=== PATIENT | male | born 1980 | race African-American/Black ===

== ENCOUNTER 2016-05-30 20:27 | Emergency (ER) | payer OTHER ==
[~2016-05-30] VITALS: Ht 180.3 cm; Wt 78.0 kg
--- NOTE | 2016-05-30 20:44 | PD ---
HPI Chief Complaint: Medical Clearance Time Seen by Provider: 20:41 Travel History International Travel<30 days: No Contact w/Intl Traveler<30days: No History of Present Illness HPI Patient is a 35-year-old male who was brought into the emergency department by the [facility] Police [employer] for making odd statements in public. Patient is no physical complaints. 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 He states that the blurred movies, nothing is real. PFSH Past Medical History Arthritis: No Asthma: No Autoimmune Disease: No Blood Disorders: No Anxiety: Yes Depression: Yes (w/ suicidal ideation) Heart Rhythm Problems: Yes (tachycardia) Cancer: No Cardiovascular Problems: Yes (tachycardia) High Cholesterol: No Chest Pain: No Congestive Heart Failure: No COPD: No Cerebrovascular Accident: No Diabetes: No Diminished Hearing: No Endocrine: No GERD: No Glaucoma: No Genitourinary: No Headaches: No Hepatitis: No Hiatal Hernia: No Hypertension: No Immune Disorder: No Musculoskeletal: No Neurologic: No Psychiatric: Yes (psychosis) Respiratory: No Immunizations Current: No Migraines: No Myocardial Infarction: No Schizophrenia: Yes Seizures: No Sleep Apnea: No Ulcer: No Past Surgical History Abdominal Surgery: No AICD: No Appendectomy: No Cardiac Surgery: No Cholecystectomy: No Ear Surgery: Yes Endocrine Surgery: No Eye Surgery: Yes (left eye orbit) Genitourinary Surgery: No Gynecologic Surgery: No Neurologic Surgery: No Oral Surgery: Yes (facial plate) Pacemaker: No Thoracic Surgery: No Other Surgery: Yes (plate in face) Social History Alcohol Use: Yes (occassional 2 beers week. ) Tobacco Use: Yes (1 PPD. ) Substance Use: Yes (MARIJUANA, COCAINE) Allergies-Medications (Allergen,Severity, Reaction): Coded Allergies: Shellfish (Verified Allergy, Severe, EDEMA, HIVES, 05/30/16) Reported Meds & Prescriptions Reported Meds & Active Scripts Active No Active Prescriptions or Reported Medications Review of Systems ROS Limitations: Uncooperative Except as stated in HPI: all other systems reviewed are Neg Physical Exam Narrative GENERAL: Developed, well-nourished, alert gentleman. Resting comfortably in no acute distress. SKIN: Warm and dry. HEAD: Atraumatic. Normocephalic. EYES: Pupils equal and round. No scleral icterus. No injection or drainage. ENT: No nasal bleeding or discharge. Mucous membranes pink and moist. NECK: Trachea midline. No JVD. CARDIOVASCULAR: Regular rate and rhythm. No murmur appreciated. RESPIRATORY: No accessory muscle use. Clear to auscultation. Breath sounds equal bilaterally. GASTROINTESTINAL: Abdomen soft, non-tender, nondistended. Hepatic and splenic margins not palpable. MUSCULOSKELETAL: No obvious deformities. No clubbing. No cyanosis. No edema. NEUROLOGICAL: Awake and alert. No obvious cranial nerve deficits. Motor grossly within normal limits. Normal speech. PSYCHIATRIC: Appropriate mood and affect; insight and judgment impaired. Data Data Last Documented VS Vital Signs Date Time Temp Pulse Resp B/P Pulse Ox O2 Delivery O2 Flow Rate FiO2 05/30/16 21:25 97 15 05/30/16 21:21 98.5 135/78 98 Orders Complete Blood Count With Diff (05/30/16 20:37) Comprehensive Metabolic Panel (05/30/16 20:37) Psych Screen (05/30/16 20:37) Drug Screen, Random Urine (05/30/16 20:37) Alcohol (Ethanol) (05/30/16 20:37) Salicylates (Aspirin) (05/30/16 20:37) Tylenol (Acetaminophen) (05/30/16 20:37) Labs Laboratory Tests Test 05/30/16 20:45 White Blood Count 7.0 TH/MM3 Red Blood Count 4.58 MIL/MM3 Hemoglobin 13.5 GM/DL Hematocrit 40.4 % Mean Corpuscular Volume 88.3 FL Mean Corpuscular Hemoglobin 29.5 PG Mean Corpuscular Hemoglobin 33.4 % Concent Red Cell Distribution Width 15.4 % Platelet Count 247 TH/MM3 Mean Platelet Volume 8.7 FL Neutrophils (%) (Auto) 59.2 % Lymphocytes (%) (Auto) 30.9 % Monocytes (%) (Auto) 6.4 % Eosinophils (%) (Auto) 2.6 % Basophils (%) (Auto) 0.9 % Neutrophils # (Auto) 4.1 TH/MM3 Lymphocytes # (Auto) 2.2 TH/MM3 Monocytes # (Auto) 0.5 TH/MM3 Eosinophils # (Auto) 0.2 TH/MM3 Basophils # (Auto) 0.1 TH/MM3 CBC Comment DIFF FINAL Differential Comment Sodium Level 142 MEQ/L Potassium Level 3.5 MEQ/L Chloride Level 110 MEQ/L Carbon Dioxide Level 24.8 MEQ/L Anion Gap 7 MEQ/L Blood Urea Nitrogen 11 MG/DL Creatinine 1.09 MG/DL Estimat Glomerular Filtration 92 ML/MIN Rate Random Glucose 95 MG/DL Calcium Level 8.9 MG/DL Total Bilirubin 0.4 MG/DL Aspartate Amino Transf 28 U/L (AST/SGOT) Alanine Aminotransferase 35 U/L (ALT/SGPT) Alkaline Phosphatase 77 U/L Total Protein 7.3 GM/DL Albumin 3.7 GM/DL Salicylates Level 4.0 MG/DL Urine Opiates Screen NEG Acetaminophen Level LESS THAN 2.0 MCG/ML Urine Barbiturates Screen NEG Urine Amphetamines Screen NEG Urine Benzodiazepines Screen NEG Urine Cocaine Screen NEG Urine Cannabinoids Screen POS Ethyl Alcohol Level LESS THAN 3 MG/DL MDM Medical Decision Making Medical Screen Exam Complete: Yes Emergency Medical Condition: Yes Medical Record Reviewed: Yes Interpretation(s) Vital Signs Date Time Temp Pulse Resp B/P Pulse Ox O2 Delivery O2 Flow Rate FiO2 05/30/16 21:25 97 15 05/30/16 21:21 98.5 97 15 135/78 98 Laboratory Tests Test 05/30/16 20:45 White Blood Count 7.0 TH/MM3 Red Blood Count 4.58 MIL/MM3 Hemoglobin 13.5 GM/DL Hematocrit 40.4 % Mean Corpuscular Volume 88.3 FL Mean Corpuscular Hemoglobin 29.5 PG Mean Corpuscular Hemoglobin 33.4 % Concent Red Cell Distribution Width 15.4 % Platelet Count 247 TH/MM3 Mean Platelet Volume 8.7 FL Neutrophils (%) (Auto) 59.2 % Lymphocytes (%) (Auto) 30.9 % Monocytes (%) (Auto) 6.4 % Eosinophils (%) (Auto) 2.6 % Basophils (%) (Auto) 0.9 % Neutrophils # (Auto) 4.1 TH/MM3 Lymphocytes # (Auto) 2.2 TH/MM3 Monocytes # (Auto) 0.5 TH/MM3 Eosinophils # (Auto) 0.2 TH/MM3 Basophils # (Auto) 0.1 TH/MM3 CBC Comment DIFF FINAL Differential Comment Sodium Level 142 MEQ/L Potassium Level 3.5 MEQ/L Chloride Level 110 MEQ/L Carbon Dioxide Level 24.8 MEQ/L Anion Gap 7 MEQ/L Blood Urea Nitrogen 11 MG/DL Creatinine 1.09 MG/DL Estimat Glomerular Filtration 92 ML/MIN Rate Random Glucose 95 MG/DL Calcium Level 8.9 MG/DL Total Bilirubin 0.4 MG/DL Aspartate Amino Transf 28 U/L (AST/SGOT) Alanine Aminotransferase 35 U/L (ALT/SGPT) Alkaline Phosphatase 77 U/L Total Protein 7.3 GM/DL Albumin 3.7 GM/DL Salicylates Level 4.0 MG/DL Urine Opiates Screen NEG Acetaminophen Level LESS THAN 2.0 MCG/ML Urine Barbiturates Screen NEG Urine Amphetamines Screen NEG Urine Benzodiazepines Screen NEG Urine Cocaine Screen NEG Urine Cannabinoids Screen POS Ethyl Alcohol Level LESS THAN 3 MG/DL Differential Diagnosis Mood disorder versus substance abuse versus schizophrenia versus medication noncompliance versus other Narrative Course Patient's 35-year-old male brought in under [employer] act for making odd statements while in public. Patient has a history of drug abuse as well as schizophrenia. He is not answering questions appropriately, he is answering questions with questions, he is talking about random things. Labs ordered and pending. Labs reviewed and are unremarkable. Patient's urine drug screen was positive for marijuana. Patient is medically clear for psychiatric evaluation. Diagnosis Primary Impression: Medical clearance for psychiatric admission Additional Impression: Substance use disorder Scripts No Active Prescriptions or Reported Meds Condition: Stable María Dominguez May 30, 2016 20:44
[2016-05-30 21:02] LABS: AUTOMATED NEUTROPHIL # 4.1 TH/MM3 (1.8-7.7); BASOPHIL # 0.1 TH/MM3 (0-0.2); BASOPHIL % 0.9 % (0.0-2.0); EOSINOPHIL # 0.2 TH/MM3 (0-0.4); EOSINOPHIL % 2.6 % (0.0-4.0); HEMATOCRIT 40.4 % (39.0-51.0); HEMO FLAGS DIFF FINAL; LYMPH % 30.9 % (9.0-44.0); LYMPHOCYTE # 2.2 TH/MM3 (1.0-4.8); MEAN CELL VOLUME 88.3 FL (80.0-100.0); MEAN CORPUSCULAR HEMOGLOBIN 29.5 PG (27.0-34.0); MEAN CORPUSCULAR HGB CONC 33.4 % (32.0-36.0); MONO % 6.4 % (0.0-8.0); NEUT % 59.2 % (16.0-70.0); PLATELET COUNT 247 TH/MM3 (150-450); RED BLOOD COUNT 4.58 MIL/MM3 (4.50-5.90); RED CELL DISTRIBUTION WIDTH 15.4 % (11.6-17.2)
[2016-05-30 21:21] VITALS: BP 135/78; PULSE 97; RESP 15; TEMP 98.5; O2SAT 98
[2016-05-30 21:28] LABS: AMPHETAMINE, URINE NEG (NEG); BARBITURATES, URINE NEG (NEG); COCAINE, URINE NEG (NEG)
[2016-05-30 21:29] LABS: ANION GAP 7 MEQ/L (5-15)
[2016-05-30 21:31] LABS: ACETAMINOPHEN LESS THAN 2.0 MCG/ML (10.0-30.0); ALKALINE PHOSPHATASE 77 U/L (45-117); ALT (GPT) 35 U/L (12-78); AST (GOT) 28 U/L (15-37); BICARBONATE 24.8 MEQ/L (21.0-32.0); BLOOD UREA NITROGEN 11 MG/DL (7-18); CHLORIDE 110 MEQ/L (98-107); GLOMERULAR FILTRATION RATE 92 ML/MIN (>89); POTASSIUM 3.5 MEQ/L (3.5-5.1); SODIUM (NA) 142 MEQ/L (136-145); TOTAL BILIRUBIN ADULT 0.4 MG/DL (0.2-1.0)
[2016-05-30] MEDS ORDERED: LURA40 PO (23:36)
[2016-05-30] MEDS ORDERED: BENZ0.5T PO (23:41)
[2016-05-30] MEDS ORDERED: ZIPRASIDONE HCL 20 MG CAP PO ONE (23:45)
[2016-05-31 02:39] VITALS: RESP 20
== END 2016-05-31 03:59 ==
LOC: NEPA 20:27 → NEPJ 05-31 03:59
DX: F20.0 Paranoid schizophrenia (principal); R00.0 Tachycardia, unspecified; F17.210 Nicotine dependence, cigarettes, uncomplicated
CPT/HCPCS: 80053; 80307; 80320; 80329; 85025; 99284; G0480

== ENCOUNTER 2016-07-02 08:53 | Emergency (ER) | payer SELFPAY ==
[~2016-07-02] VITALS: Ht 182.9 cm; Wt 90.0 kg
[~2016-07-02 08:53] MED LIST: BENZ0.5T PO; LURA40 PO
[2016-07-02 08:55] VITALS: BP 133/83; PULSE 59; RESP 14; TEMP 98.2; O2SAT 99
[2016-07-02 10:16] LABS: AUTOMATED NEUTROPHIL # 2.5 TH/MM3 (1.8-7.7); BASOPHIL % 0.9 % (0.0-2.0); EOSINOPHIL # 0.2 TH/MM3 (0-0.4); HEMATOCRIT 42.1 % (39.0-51.0); HEMO FLAGS DIFF FINAL; LYMPHOCYTE # 1.6 TH/MM3 (1.0-4.8); MEAN CORPUSCULAR HEMOGLOBIN 29.5 PG (27.0-34.0); MEAN CORPUSCULAR HGB CONC 32.7 % (32.0-36.0); MONO % 6.9 % (0.0-8.0); NEUT % 53.2 % (16.0-70.0); PLATELET COUNT 218 TH/MM3 (150-450); RED BLOOD COUNT 4.68 MIL/MM3 (4.50-5.90); RED CELL DISTRIBUTION WIDTH 15.4 % (11.6-17.2); WHITE BLOOD COUNT 4.7 TH/MM3 (4.0-11.0)
[2016-07-02 10:38] LABS: AMPHETAMINE, URINE NEG (NEG); BARBITURATES, URINE NEG (NEG); COCAINE, URINE NEG (NEG)
[2016-07-02 10:49] LABS: ALT (GPT) 35 U/L (12-78); ANION GAP 5 MEQ/L (5-15); AST (GOT) 27 U/L (15-37); BICARBONATE 28.7 MEQ/L (21.0-32.0); BLOOD UREA NITROGEN 14 MG/DL (7-18); CHLORIDE 108 MEQ/L (98-107); GLOMERULAR FILTRATION RATE 130 ML/MIN (>89); SODIUM (NA) 142 MEQ/L (136-145)
[2016-07-02 10:51] LABS: ALKALINE PHOSPHATASE 78 U/L (45-117)
--- NOTE | 2016-07-02 13:07 | PD ---
HPI Chief Complaint: Psychiatric Symptoms Time Seen by Provider: 12:55 Travel History International Travel<30 days: No Contact w/Intl Traveler<30days: No Traveled to known affect area: No History of Present Illness HPI 35 year old male presents to the emergency department voluntarily for psychiatric evaluation. Patient is noncooperative and refuses to answer questions or allow me to perform a physical evaluation. The patient answers appropriately answers his name and the year. However, when asked where he is he states "somewhere". The patient denies any medical complaints at this time. When I asked him why he has come to the emergency department for psychiatric evaluation he states "because of people like you". He will not elaborate and refuses to talk to me further. According to the chart, the patient does have history of schizophrenia. He has been seen here multiple times for psychiatric evaluation. PFSH Past Medical History Arthritis: No Asthma: No Autoimmune Disease: No Blood Disorders: No Anxiety: Yes Depression: Yes (w/ suicidal ideation) Heart Rhythm Problems: Yes (tachycardia) Cancer: No Cardiovascular Problems: Yes (tachycardia) High Cholesterol: No Chest Pain: No Congestive Heart Failure: No COPD: No Cerebrovascular Accident: No Diabetes: No Diminished Hearing: No Endocrine: No GERD: No Glaucoma: No Genitourinary: No Headaches: No Hepatitis: No Hiatal Hernia: No Hypertension: No Immune Disorder: No Musculoskeletal: No Neurologic: No Psychiatric: Yes (psychosis) Respiratory: No Immunizations Current: No Migraines: No Myocardial Infarction: No Schizophrenia: Yes Seizures: No Sleep Apnea: No Ulcer: No Past Surgical History Abdominal Surgery: No AICD: No Appendectomy: No Cardiac Surgery: No Cholecystectomy: No Ear Surgery: Yes Endocrine Surgery: No Eye Surgery: Yes (left eye orbit) Genitourinary Surgery: No Gynecologic Surgery: No Neurologic Surgery: No Oral Surgery: Yes (facial plate) Pacemaker: No Thoracic Surgery: No Other Surgery: Yes (plate in face) Social History Alcohol Use: Yes (occassional 2 beers week. ) Tobacco Use: Yes (1 PPD. ) Substance Use: Yes (MARIJUANA, COCAINE) Allergies-Medications (Allergen,Severity, Reaction): Coded Allergies: Shellfish (Verified Allergy, Severe, EDEMA, HIVES, 05/30/16) Reported Meds & Prescriptions Reported Meds & Active Scripts Active Reported Benztropine (Benztropine Mesylate) 0.5 Mg Tab 0.5 Mg PO BID Latuda (Lurasidone) 40 Mg Tab 40 Mg PO DAILY Review of Systems Except as stated in HPI: all other systems reviewed are Neg Physical Exam Exam Limitations: Uncooperative, Psychotic Narrative GENERAL: Well-developed well-nourished male patient, afebrile. SKIN: Warm and dry. HEAD: Normocephalic. Atraumatic. EYES: No scleral icterus. No injection or drainage. RESPIRATORY: No accessory muscle use. MUSCULOSKELETAL: No cyanosis, or edema. PSYCHIATRIC: No delusional thought processes. No hallucinations. Patient is hostile and uncooperative. Data Data Last Documented VS Vital Signs Date Time Temp Pulse Resp B/P Pulse Ox O2 Delivery O2 Flow Rate FiO2 07/02/16 08:55 98.2 59 14 133/83 99 Orders Complete Blood Count With Diff (07/02/16 09:58) Comprehensive Metabolic Panel (07/02/16 09:58) Psych Screen (07/02/16 09:58) Drug Screen, Random Urine (07/02/16 09:58) Diet Regular Basic (07/02/16 Lunch) Labs Laboratory Tests Test 07/02/16 10:05 White Blood Count 4.7 TH/MM3 Red Blood Count 4.68 MIL/MM3 Hemoglobin 13.8 GM/DL Hematocrit 42.1 % Mean Corpuscular Volume 90.0 FL Mean Corpuscular Hemoglobin 29.5 PG Mean Corpuscular Hemoglobin 32.7 % Concent Red Cell Distribution Width 15.4 % Platelet Count 218 TH/MM3 Mean Platelet Volume 9.6 FL Neutrophils (%) (Auto) 53.2 % Lymphocytes (%) (Auto) 34.0 % Monocytes (%) (Auto) 6.9 % Eosinophils (%) (Auto) 5.0 % Basophils (%) (Auto) 0.9 % Neutrophils # (Auto) 2.5 TH/MM3 Lymphocytes # (Auto) 1.6 TH/MM3 Monocytes # (Auto) 0.3 TH/MM3 Eosinophils # (Auto) 0.2 TH/MM3 Basophils # (Auto) 0.0 TH/MM3 CBC Comment DIFF FINAL Differential Comment Sodium Level 142 MEQ/L Potassium Level 4.0 MEQ/L Chloride Level 108 MEQ/L Carbon Dioxide Level 28.7 MEQ/L Anion Gap 5 MEQ/L Blood Urea Nitrogen 14 MG/DL Creatinine 0.81 MG/DL Estimat Glomerular Filtration 130 ML/MIN Rate Random Glucose 85 MG/DL Calcium Level 9.6 MG/DL Total Bilirubin 1.0 MG/DL Aspartate Amino Transf 27 U/L (AST/SGOT) Alanine Aminotransferase 35 U/L (ALT/SGPT) Alkaline Phosphatase 78 U/L Total Protein 7.4 GM/DL Albumin 4.0 GM/DL Urine Opiates Screen NEG Urine Barbiturates Screen NEG Urine Amphetamines Screen NEG Urine Benzodiazepines Screen NEG Urine Cocaine Screen NEG Urine Cannabinoids Screen POS MDM Medical Decision Making Medical Screen Exam Complete: Yes Emergency Medical Condition: Yes Medical Record Reviewed: Yes Differential Diagnosis Schizophrenia versus bipolar disorder versus depression versus anxiety Narrative Course 35-year-old male who is well-known emergency department for schizophrenia presents to emergency Department voluntarily for psychiatric evaluation. He refuses to answer my questions. He denies any medical complaints. Physical exam is very limited due to uncooperativeness of the patient. Lab work was completed in triage. CBC is unremarkable. CMP shows no acute abnormality. Urine drug screen is positive for cannabinoids. Patient is medically cleared for psychiatric screening and disposition. Mental health screening discussed with the patient. Psychiatric screen ordered.minhn Diagnosis Primary Impression: Schizophrenia Qualified Code: F20.9 - Schizophrenia, unspecified type Additional Instructions: Patient is medically cleared for psychiatric screening and disposition. Condition: Stable Mely Hathaway Jul 02, 2016 13:07
[2016-07-03 02:12] VITALS: BP 154/73; PULSE 62; RESP 19; O2SAT 97
[2016-07-03 06:30] VITALS: RESP 18
--- NOTE | 2016-07-03 10:18 | PD ---
History of Present Illness Chief Complaint: Psychiatric Symptoms Time Seen by Provider: 10:10 Travel History International Travel<30 Days: No Contact w/Intl Traveler<30days: No Known affected area: No Legal Status Legal Status: Voluntary History of Present Illness: History of Present Illness HPI 35 year old male with history of substance abuse, substance induced mood disorder, schizophrenia versus schizoaffective disorder who presents to the emergency department voluntarily for psychiatric evaluation. Upon arrival to ED he is noncooperative and refuses to answer questions and did not allow an exam to be performed. He was uncooperative with all staff. The patient was brought to J pod for observation and was allowed to sleep. He did not present any behavioral concerns and slept all night. Patient seen in J pod. Record is reviewed. He has had multiple visits to [facility] with last visit on May 30, 2016 and atb that time he was transferred to [facility]. His current toxicology is positive for cannabinoids. Patient is initially not responding to my questions and keeps his blanket over his head. After several attempts at engaging him and after I advised him that if he did not cooperat e he would be discharged .He states " If you discharge me I will just kill myself". You are fake and everyone else is fake. I am tired of being in this fake world. " he did not answer any further questions. PFSH Past Medical History Arthritis: No Asthma: No Autoimmune Disease: No Blood Disorders: No Anxiety: Yes Depression: Yes (w/ suicidal ideation) Heart Rhythm Problems: Yes (tachycardia) Cancer: No Cardiovascular Problems: Yes (tachycardia) High Cholesterol: No Chest Pain: No Congestive Heart Failure: No COPD: No Cerebrovascular Accident: No Diabetes: No Diminished Hearing: No Endocrine: No GERD: No Glaucoma: No Genitourinary: No Headaches: No Hepatitis: No Hiatal Hernia: No Hypertension: No Immune Disorder: No Musculoskeletal: No Neurologic: No Psychiatric: Yes (psychosis) Respiratory: No Immunizations Current: No Migraines: No Myocardial Infarction: No Schizophrenia: Yes Seizures: No Sleep Apnea: No Ulcer: No Past Surgical History Abdominal Surgery: No AICD: No Appendectomy: No Cardiac Surgery: No Cholecystectomy: No Ear Surgery: Yes Endocrine Surgery: No Eye Surgery: Yes (left eye orbit) Genitourinary Surgery: No Gynecologic Surgery: No Neurologic Surgery: No Oral Surgery: Yes (facial plate) Pacemaker: No Thoracic Surgery: No Other Surgery: Yes (plate in face) Psychiatric History Psychiatric History Hx Psychiatric Treatment: MEDICAL RECORSDS GO Back to 2003 WHERE IT WAS NOTED THAT PATIENT BEGAN HIS VISITS FOR SUBSTANCE ABUSE AND PSYCHOSIS. PATIENT STATED THAT HE HAS HISTORY OF BEING DIAGNOSED WITH SCHIZOAFFECTIVE DISORDER. PATIENT HAS HAD SEVERAL VISITS TO [facility]. PATIENT HAS A LONG HISTORY WITH [facility], PT WAS DISCHARGED FROM [facility] ON, 05/30/16. History of Inpatient Treatment: Yes Guns or firearms in home: No Social History Possibly homeless Hx Alcohol Use: Yes (occassional 2 beers week. ) Hx Tobacco Use: Yes (1 PPD. ) Hx Substance Use: Yes Substance Use Type: Marijuana Other Substances Used: HX OF CRACK PER RECORDS Hx of Substance Use Treatment: No Allergies-Medications (Allergen,Severity, Reaction): Coded Allergies: Shellfish (Verified Allergy, Severe, EDEMA, HIVES, 05/30/16) Reported Meds & Prescriptions Reported Meds & Active Scripts Active No Active Prescriptions or Reported Medications Review of Systems ROS Limitations: Uncooperative Exam Alert: Yes [place]: Person Mood: Angry Affect: Other (unable to assess) Speech: Clear, Illogical Eye Contact: None Memory Intact: Comment (not able to assess) Hallucinations: Other (unable to assess) Delusions: Yes Delusion Type: Paranoid, Other (people are fake) Suicidal: Ideation Homicidal: Ideation (unable to assess) Insight/Judgement poor. poor [facility] Medical Decision Making Medical Record Reviewed: Yes Assessment/Plan Place on BA status as patient is uncooperative and reporting suicidal ideation. I am unable to determine his degree of mental impairment versus if this is a part of a manipulative attempt at obtaining alf and for this reason he is placed under a BA Will medicate with Haldol Patient is on Act wait list as no available beds on [facility]. Orders Diet Regular Basic (07/02/16 Lunch) Diet Regular Basic (07/02/16 Dinner) Diet Regular Basic (07/03/16 Breakfast) Results Vital Signs Date Time Temp Pulse Resp B/P Pulse Ox O2 Delivery O2 Flow Rate FiO2 07/03/16 06:30 18 07/03/16 02:12 62 19 154/73 97 Room Air Diagnosis Primary Impression: Schizophrenia Additional Impressions: Substance induced mood disorder Substance use disorder Additional Instructions: Patient is medically cleared for psychiatric screening and disposition. Prescriptions No Active Prescriptions or Reported Meds Disposition: 65 DISC TO PSYCH CARE FACILITY ([facility]) Condition: Stable Problem Qualifiers Primary Impression: Schizophrenia Qualified Code: F20.9 - Schizophrenia, unspecified type Ursula Santos Jul 03, 2016 10:18
[2016-07-03] MEDS ORDERED: diphenhydrAMINE HCL 50 MG CAP PO ONE (11:00)
[2016-07-03] MEDS ORDERED: HALOPERIDOL 5 MG TAB PO ONE (11:00)
== END 2016-07-03 11:06 ==
LOC: NEPJ 08:53
DX: F20.9 Schizophrenia, unspecified (principal)
CPT/HCPCS: 80053; 80307; 85025; 99284; Q0163

== ENCOUNTER 2016-07-19 16:14 | Emergency (ER) | payer OTHER ==
[~2016-07-19] VITALS: Ht 182.9 cm; Wt 90.0 kg
[2016-07-19 16:15] VITALS: BP 120/57; PULSE 117; RESP 20; RESP 22; TEMP 98.9; O2SAT 100
[2016-07-19] MEDS ORDERED: SODIUM CHLOR 0.9% 1000 ML INJ 1,000 ML IV ONE (16:30)
--- NOTE | 2016-07-19 16:36 | PD ---
HPI Chief Complaint: Medical Clearance Time Seen by Provider: 16:31 Travel History International Travel<30 days: No Contact w/Intl Traveler<30days: No History of Present Illness HPI Patient's 35-year-old male brought into the emergency department via EMS under Brandt act. Patient was initially seen in the car smoking an unknown substance and was thought to be having a seizure, EMS was called, patient fled the scene and crawled underneath the car. Patient admits to smoking K2 and marijuana. He reports a history of schizophrenia. He is combative and uncooperative initially. Patient was placed under Brandt act. Patient denies any suicidal or homicidal ideations at this time. PFSH Past Medical History Arthritis: No Asthma: No Autoimmune Disease: No Blood Disorders: No Anxiety: Yes Depression: Yes (w/ suicidal ideation) Heart Rhythm Problems: Yes (tachycardia) Cancer: No Cardiovascular Problems: Yes (tachycardia) High Cholesterol: No Chest Pain: No Congestive Heart Failure: No COPD: No Cerebrovascular Accident: No Diabetes: No Diminished Hearing: No Endocrine: No GERD: No Glaucoma: No Genitourinary: No Headaches: No Hepatitis: No Hiatal Hernia: No Hypertension: No Immune Disorder: No Musculoskeletal: No Neurologic: No Psychiatric: Yes (psychosis) Respiratory: No Immunizations Current: No Migraines: No Myocardial Infarction: No Schizophrenia: Yes Seizures: No Sleep Apnea: No Ulcer: No Past Surgical History Abdominal Surgery: No AICD: No Appendectomy: No Cardiac Surgery: No Cholecystectomy: No Ear Surgery: Yes Endocrine Surgery: No Eye Surgery: Yes (left eye orbit) Genitourinary Surgery: No Gynecologic Surgery: No Neurologic Surgery: No Oral Surgery: Yes (facial plate) Pacemaker: No Thoracic Surgery: No Other Surgery: Yes (plate in face) Social History Alcohol Use: Yes (occassional 2 beers week. ) Tobacco Use: Yes (1 PPD. ) Substance Use: Yes Allergies-Medications (Allergen,Severity, Reaction): Coded Allergies: Shellfish (Verified Allergy, Severe, EDEMA, HIVES, 07/19/16) Reported Meds & Prescriptions Reported Meds & Active Scripts Active No Active Prescriptions or Reported Medications Review of Systems ROS Limitations: Intoxication Except as stated in HPI: all other systems reviewed are Neg Cardiovascular: Positive: Tachycardia Skin: Positive Other (abrasion to left eye, left hand on knuckles.) Psychiatric: Positive: Mood Disorder, Substance Abuse Physical Exam Narrative GENERAL: Well-developed, well-nourished, alert gentleman. Resting comfortably in no acute distress SKIN: Focused skin assessment warm/dry. Abrasion to left eyelid, left knuckles. HEAD: Atraumatic. Normocephalic. EYES: Pupils equal and round. No scleral icterus. No injection or drainage. ENT: No nasal bleeding or discharge. Mucous membranes pink and moist. NECK: Trachea midline. No JVD. CARDIOVASCULAR: Tachycardic. No murmur appreciated. RESPIRATORY: No accessory muscle use. Clear to auscultation. Breath sounds equal bilaterally. GASTROINTESTINAL: Abdomen soft, non-tender, nondistended. Hepatic and splenic margins not palpable. MUSCULOSKELETAL: No obvious deformities. No clubbing. No cyanosis. No edema. NEUROLOGICAL: Awake and alert. No obvious cranial nerve deficits. Motor grossly within normal limits. Normal speech. PSYCHIATRIC: Appropriate mood and affect; insight and judgment impaired. Data Data Last Documented VS Vital Signs Date Time Temp Pulse Resp B/P Pulse Ox O2 Delivery O2 Flow Rate FiO2 07/19/16 16:15 98.9 117 22 120/57 100 07/19/16 16:15 Room Air Orders Complete Blood Count With Diff (07/19/16 16:29) Comprehensive Metabolic Panel (07/19/16 16:29) Urinalysis - C+S If Indicated (07/19/16 16:29) Electrocardiogram (07/19/16 16:29) Iv Access Insert/Monitor (07/19/16 16:29) Psych Screen (07/19/16 16:29) Drug Screen, Random Urine (07/19/16 16:29) Alcohol (Ethanol) (07/19/16 16:29) Salicylates (Aspirin) (07/19/16 16:29) Tylenol (Acetaminophen) (07/19/16 16:29) Diet Regular Basic (07/19/16 Dinner) Sodium Chlor 0.9% 1000 Ml Inj (Ns 1000 M (07/19/16 16:30) Labs Laboratory Tests Test 07/19/16 16:40 White Blood Count 6.3 TH/MM3 Red Blood Count 4.05 MIL/MM3 Hemoglobin 12.0 GM/DL Hematocrit 37.0 % Mean Corpuscular Volume 91.3 FL Mean Corpuscular Hemoglobin 29.5 PG Mean Corpuscular Hemoglobin 32.4 % Concent Red Cell Distribution Width 15.6 % Platelet Count 211 TH/MM3 Mean Platelet Volume 9.5 FL Neutrophils (%) (Auto) 63.9 % Lymphocytes (%) (Auto) 23.2 % Monocytes (%) (Auto) 8.2 % Eosinophils (%) (Auto) 3.9 % Basophils (%) (Auto) 0.8 % Neutrophils # (Auto) 4.0 TH/MM3 Lymphocytes # (Auto) 1.4 TH/MM3 Monocytes # (Auto) 0.5 TH/MM3 Eosinophils # (Auto) 0.2 TH/MM3 Basophils # (Auto) 0.1 TH/MM3 CBC Comment DIFF FINAL Differential Comment Sodium Level 142 MEQ/L Potassium Level 3.9 MEQ/L Chloride Level 111 MEQ/L Carbon Dioxide Level 23.3 MEQ/L Anion Gap 8 MEQ/L Blood Urea Nitrogen 16 MG/DL Creatinine 1.22 MG/DL Estimat Glomerular Filtration 81 ML/MIN Rate Random Glucose 120 MG/DL Calcium Level 8.3 MG/DL Total Bilirubin 0.3 MG/DL Aspartate Amino Transf 39 U/L (AST/SGOT) Alanine Aminotransferase 41 U/L (ALT/SGPT) Alkaline Phosphatase 62 U/L Total Protein 6.4 GM/DL Albumin 3.4 GM/DL Salicylates Level LESS THAN 1.7 MG/DL Acetaminophen Level LESS THAN 2.0 MCG/ML Ethyl Alcohol Level LESS THAN 3 MG/DL MDM Medical Decision Making Medical Screen Exam Complete: Yes Emergency Medical Condition: Yes Interpretation(s) Vital Signs Date Time Temp Pulse Resp B/P Pulse Ox O2 Delivery O2 Flow Rate FiO2 07/19/16 16:15 98.9 117 22 120/57 100 07/19/16 16:15 117 22 07/19/16 16:15 117 20 120/57 100 Room Air Differential Diagnosis Substance abuse versus mood disorder versus schizophrenia versus other Narrative Course Patient's 35-year-old male brought in under Brandt act after he was found smoking K2 in a car and allegedly tried to flee from the police and EMS, crawling underneath the car. They felt that he was a possible harm to himself and brought him in. Patient was tachycardic on arrival, at that point he was in 4 point restraints and had a net over his face. After police and EMS left, patient calmed down, he has been completely cooperative without any suicidal or homicidal ideations. He does admit to smoking K2, he reports compliance with his schizophrenia medications. He was taken out of restraints and has been compliant while in the emergency department. Patient is alert and oriented 4. Vital signs reassessed, heart rate is 95, blood pressure is 136/77. CBC is unremarkable Chemistry is unremarkable, salicylate level is less than 1.7, acetaminophen is less than 2.0, alcohol level is less than 3. Patient has had dinner, plenty of oral fluids. Patient is medically clear for psychiatric evaluation at this time. Diagnosis Primary Impression: Medical clearance for psychiatric admission Additional Impression: Substance use disorder Scripts No Active Prescriptions or Reported Meds Condition: Stable María Dominguez [facility] Jul 19, 2016 16:36
[2016-07-19 17:03] LABS: BASOPHIL # 0.1 TH/MM3 (0-0.2); BASOPHIL % 0.8 % (0.0-2.0); EOSINOPHIL # 0.2 TH/MM3 (0-0.4); EOSINOPHIL % 3.9 % (0.0-4.0); HEMO FLAGS DIFF FINAL; LYMPH % 23.2 % (9.0-44.0); LYMPHOCYTE # 1.4 TH/MM3 (1.0-4.8); MEAN CELL VOLUME 91.3 FL (80.0-100.0); MEAN CORPUSCULAR HEMOGLOBIN 29.5 PG (27.0-34.0); MEAN CORPUSCULAR HGB CONC 32.4 % (32.0-36.0); MONO % 8.2 % (0.0-8.0); NEUT % 63.9 % (16.0-70.0); PLATELET COUNT 211 TH/MM3 (150-450); RED BLOOD COUNT 4.05 MIL/MM3 (4.50-5.90); RED CELL DISTRIBUTION WIDTH 15.6 % (11.6-17.2); WHITE BLOOD COUNT 6.3 TH/MM3 (4.0-11.0)
[2016-07-19 17:54] LABS: ACETAMINOPHEN LESS THAN 2.0 MCG/ML (10.0-30.0); ALKALINE PHOSPHATASE 62 U/L (45-117); ALT (GPT) 41 U/L (12-78); ANION GAP 8 MEQ/L (5-15); AST (GOT) 39 U/L (15-37); BICARBONATE 23.3 MEQ/L (21.0-32.0); BLOOD UREA NITROGEN 16 MG/DL (7-18); CHLORIDE 111 MEQ/L (98-107); GLOMERULAR FILTRATION RATE 81 ML/MIN (>89); SODIUM (NA) 142 MEQ/L (136-145); TOTAL BILIRUBIN ADULT 0.3 MG/DL (0.2-1.0)
[2016-07-19 17:55] LABS: POTASSIUM 3.9 MEQ/L (3.5-5.1)
[2016-07-19 22:00] VITALS: RESP 19
[2016-07-20 01:46] LABS: AMPHETAMINE, URINE NEG (NEG); BARBITURATES, URINE NEG (NEG); COCAINE, URINE POS (NEG)
[2016-07-20 01:49] LABS: BLOOD, URINE NEG (NEG); COMMENT (UR) CULT NOT INDICATED; CULTURE IF INDICATED CULT NOT INDICATED; GLUCOSE,URINE NEG (NEG); GRANULAR CAST, URINE 4 /lpf; HYALINE CAST, URINE 41 /lpf (RARE); KETONE, URINE NEG (NEG); MUCUS URINE FEW /lpf (OCC); NITRITE,URINE NEG (NEG); SQUAMOUS EPITHELIAL CELL URINE 1 /hpf (0-5); URINE COLOR YELLOW (YELLW/STRAW)
[2016-07-20 02:19] VITALS: RESP 19
[2016-07-20 06:31] VITALS: RESP 16
--- NOTE | 2016-07-20 06:42 | HHI.PR ---
Subjective Remarks Patient brought in on BA by RAULITO. I tried to see him this morning, but he is uncooperative with interview. He answers questions with variations of "I'd rather not disclose that." He is requesting discharge from the ED this morning , and I explained to him that some cooperation with assessment is needed, but he remains uncooperative. Unable to perform psychiatric assessment for this reason at this time. Objective Exam Unable to obtain, patient uncooperative. Labs Test 07/19/16 07/20/16 16:40 01:24 White Blood Count 6.3 TH/MM3 Red Blood Count 4.05 MIL/MM3 Hemoglobin 12.0 GM/DL Hematocrit 37.0 % Mean Corpuscular Volume 91.3 FL Mean Corpuscular Hemoglobin 29.5 PG Mean Corpuscular Hemoglobin 32.4 % Concent Red Cell Distribution Width 15.6 % Platelet Count 211 TH/MM3 Mean Platelet Volume 9.5 FL Neutrophils (%) (Auto) 63.9 % Lymphocytes (%) (Auto) 23.2 % Monocytes (%) (Auto) 8.2 % Eosinophils (%) (Auto) 3.9 % Basophils (%) (Auto) 0.8 % Neutrophils # (Auto) 4.0 TH/MM3 Lymphocytes # (Auto) 1.4 TH/MM3 Monocytes # (Auto) 0.5 TH/MM3 Eosinophils # (Auto) 0.2 TH/MM3 Basophils # (Auto) 0.1 TH/MM3 CBC Comment DIFF FINAL Differential Comment Sodium Level 142 MEQ/L Potassium Level 3.9 MEQ/L Chloride Level 111 MEQ/L Carbon Dioxide Level 23.3 MEQ/L Anion Gap 8 MEQ/L Blood Urea Nitrogen 16 MG/DL Creatinine 1.22 MG/DL Estimat Glomerular Filtration 81 ML/MIN Rate Random Glucose 120 MG/DL Calcium Level 8.3 MG/DL Total Bilirubin 0.3 MG/DL Aspartate Amino Transf 39 U/L (AST/SGOT) Alanine Aminotransferase 41 U/L (ALT/SGPT) Alkaline Phosphatase 62 U/L Total Protein 6.4 GM/DL Albumin 3.4 GM/DL Salicylates Level LESS THAN 1.7 MG/DL Acetaminophen Level LESS THAN 2.0 MCG/ML Ethyl Alcohol Level LESS THAN 3 MG/DL Urine Color YELLOW Urine Turbidity HAZY Urine pH 6.0 Urine Specific [place] 1.024 Urine Protein TRACE mg/dL Urine Glucose (UA) NEG mg/dL Urine Ketones NEG mg/dL Urine Occult Blood NEG Urine Nitrite NEG Urine Bilirubin NEG Urine Urobilinogen LESS THAN 2.0 MG/DL Urine Leukocyte Esterase TRACE Urine RBC 1 /hpf Urine WBC 7 /hpf Urine Squamous Epithelial 1 /hpf Cells Urine Hyaline Casts 41 /lpf Urine Granular Casts 4 /lpf Urine Mucus FEW /lpf Microscopic Urinalysis Comment CULT NOT INDICATED Urine Opiates Screen NEG Urine Barbiturates Screen NEG Urine Amphetamines Screen NEG Urine Benzodiazepines Screen NEG Urine Cocaine Screen POS Urine Cannabinoids Screen POS Vitals/IOs Vital Signs Date Time Temp Pulse Resp B/P Pulse Ox O2 Delivery O2 Flow Rate FiO2 07/20/16 06:31 16 07/19/16 16:15 98.9 117 120/57 100 07/19/16 16:15 Room Air Assessment & Plan Problem List: (1) Encounter for psychiatric assessment ICD Code: Z76.89 Assessment & Plan Unable to complete psychiatric assessment at this time. Patient uncooperative. Brandt Act remains in place for now. Brett Ramirez MD Jul 20, 2016 06:42
--- NOTE | 2016-07-20 10:27 | PD ---
History of Present Illness Chief Complaint: Medical Clearance Time Seen by Provider: 09:30 Travel History International Travel<30 Days: No Contact w/Intl Traveler<30days: No Known affected area: No Legal Status Legal Status: Brandt Act Brandt Act Signed By: Alicia Real History of Present Illness: Patient reevaluated by this physician. He is now talking and cooperative. He admits to smoking K2 yesterday. At this time he is no longer intoxicated and he denies any suicidal or homicidal ideation, plan or intent. He also denies any psychotic thinking. His cognition is intact and appears to be baseline. He states he is homeless at this time but he does have a place to stay at the [employer] and that he would like to return there. He is verbally nataly for safety and he is being calm and pleasant. He does not meet criteria for Brandt act or inpatient psychiatric hospitalization. [facility] Past Medical History Medical History: Denies Significant Hx Arthritis: No Asthma: No Autoimmune Disease: No Blood Disorders: No Anxiety: Yes Depression: Yes (w/ suicidal ideation) Heart Rhythm Problems: Yes (tachycardia) Cancer: No Cardiovascular Problems: Yes (tachycardia) High Cholesterol: No Chest Pain: No Congestive Heart Failure: No COPD: No Cerebrovascular Accident: No Diabetes: No Diminished Hearing: No Endocrine: No GERD: No Glaucoma: No Genitourinary: No Headaches: No Hepatitis: No Hiatal Hernia: No Hypertension: No Immune Disorder: No Musculoskeletal: No Neurologic: No Psychiatric: Yes (psychosis) Respiratory: No Immunizations Current: No Migraines: No Myocardial Infarction: No Schizophrenia: Yes Seizures: No Sleep Apnea: No Ulcer: No Tetanus Vaccination: Unknown Influenza Vaccination: No Past Surgical History Abdominal Surgery: No AICD: No Appendectomy: No Cardiac Surgery: No Cholecystectomy: No Ear Surgery: Yes Endocrine Surgery: No Eye Surgery: Yes (left eye orbit) Genitourinary Surgery: No Gynecologic Surgery: No Neurologic Surgery: No Oral Surgery: Yes (facial plate) Pacemaker: No Thoracic Surgery: No Other Surgery: Yes (plate in face) Psychiatric History Psychiatric History Hx Psychiatric Treatment: MEDICAL RECORSDS GO Back to 2003 WHERE IT WAS NOTED THAT PATIENT BEGAN HIS VISITS FOR SUBSTANCE ABUSE AND PSYCHOSIS. PATIENT STATED THAT HE HAS HISTORY OF BEING DIAGNOSED WITH SCHIZOAFFECTIVE DISORDER. PATIENT HAS HAD SEVERAL VISITS TO [facility]. PATIENT HAS A LONG HISTORY WITH [facility], PT WAS DISCHARGED FROM [facility] ON, 05/30/16. History of Inpatient Treatment: Yes Social History Hx Alcohol Use: Yes (occassional 2 beers week. ) Hx Tobacco Use: Yes (1 PPD) Hx Substance Use: Yes (COCAINE, MARIJUANA, K2, DENIES IVDA ) Substance Use Type: Marijuana Other Substances Used: HX OF CRACK PER RECORDS Hx of Substance Use Treatment: No Allergies-Medications (Allergen,Severity, Reaction): Coded Allergies: Shellfish (Verified Allergy, Severe, EDEMA, HIVES, 07/19/16) Reported Meds & Prescriptions Reported Meds & Active Scripts Active No Active Prescriptions or Reported Medications Review of Systems ROS Limitations: Clinical Condition Except as stated in HPI: all other systems reviewed are Neg Exam Exam Limitations: Clinical Condition Alert: Yes [place]: Person, Place, Date, Situation Mood: Calm Affect: Appropriate Speech: Clear, Logical Eye Contact: Normal Memory Intact: Immediate, Recent, Remote Insight/Judgement Adequate except for drug use. MDM Medical Decision Making Medical Record Reviewed: Yes Assessment/Plan This physician has reviewed the past treatment of the patient at [facility] with diagnoses of drug abuse and psychosis and schizoaffective disorder. At this time there is no evidence of psychosis or schizoaffective disorder but obvious evidence of drug abuse. The patient no longer meets criteria for [facility]. It is therefore being lifted and the patient is being discharged per his request. He was referred back to [facility] for drug abuse treatment. Orders Complete Blood Count With Diff (07/19/16 16:29) Comprehensive Metabolic Panel (07/19/16 16:29) Urinalysis - C+S If Indicated (07/19/16 16:29) Iv Access Insert/Monitor (07/19/16 16:29) Psych Screen (07/19/16 16:29) Drug Screen, Random Urine (07/19/16 16:29) Alcohol (Ethanol) (07/19/16 16:29) Salicylates (Aspirin) (07/19/16 16:29) Tylenol (Acetaminophen) (07/19/16 16:29) Diet Regular Basic (07/19/16 Dinner) Sodium Chlor 0.9% 1000 Ml Inj (Ns 1000 M (07/19/16 16:30) Diet Regular Basic (07/20/16 Breakfast) Diet Regular Basic (07/20/16 Lunch) Results Vital Signs Date Time Temp Pulse Resp B/P Pulse Ox O2 Delivery O2 Flow Rate FiO2 07/20/16 06:31 16 07/20/16 02:19 19 07/19/16 22:00 19 07/19/16 16:15 98.9 117 22 120/57 100 07/19/16 16:15 117 22 07/19/16 16:15 117 20 120/57 100 Room Air Laboratory Tests Test 07/19/16 07/20/16 16:40 01:24 White Blood Count 6.3 Red Blood Count 4.05 Hemoglobin 12.0 Hematocrit 37.0 Mean Corpuscular Volume 91.3 Mean Corpuscular Hemoglobin 29.5 Mean Corpuscular Hemoglobin 32.4 Concent Red Cell Distribution Width 15.6 Platelet Count 211 Mean Platelet Volume 9.5 Neutrophils (%) (Auto) 63.9 Lymphocytes (%) (Auto) 23.2 Monocytes (%) (Auto) 8.2 Eosinophils (%) (Auto) 3.9 Basophils (%) (Auto) 0.8 Neutrophils # (Auto) 4.0 Lymphocytes # (Auto) 1.4 Monocytes # (Auto) 0.5 Eosinophils # (Auto) 0.2 Basophils # (Auto) 0.1 CBC Comment DIFF FINAL Differential Comment Sodium Level 142 Potassium Level 3.9 Chloride Level 111 Carbon Dioxide Level 23.3 Anion Gap 8 Blood Urea Nitrogen 16 Creatinine 1.22 Estimat Glomerular Filtration 81 Rate Random Glucose 120 Calcium Level 8.3 Total Bilirubin 0.3 Aspartate Amino Transf 39 (AST/SGOT) Alanine Aminotransferase 41 (ALT/SGPT) Alkaline Phosphatase 62 Total Protein 6.4 Albumin 3.4 Salicylates Level LESS THAN 1.7 Acetaminophen Level LESS THAN 2.0 Ethyl Alcohol Level LESS THAN 3 Urine Color YELLOW Urine Turbidity HAZY Urine pH 6.0 Urine Specific [place] 1.024 Urine Protein TRACE Urine Glucose (UA) NEG Urine Ketones NEG Urine Occult Blood NEG Urine Nitrite NEG Urine Bilirubin NEG Urine Urobilinogen LESS THAN 2.0 Urine Leukocyte Esterase TRACE Urine RBC 1 Urine WBC 7 Urine Squamous Epithelial 1 Cells Urine Hyaline Casts 41 Urine Granular Casts 4 Urine Mucus FEW Microscopic Urinalysis Comment CULT NOT INDICATED Urine Opiates Screen NEG Urine Barbiturates Screen NEG Urine Amphetamines Screen NEG Urine Benzodiazepines Screen NEG Urine Cocaine Screen POS Urine Cannabinoids Screen POS Diagnosis Primary Impression: Adjustment disorder with mixed disturbance of emotions and conduct Departure Forms: Tests/Procedures Patient Instructions: General Instructions, Mood Disorders (ED) Prescriptions No Active Prescriptions or Reported Meds Disposition: 01 DISCHARGE HOME Condition: Stable Romeo Alexander MD Jul 20, 2016 10:27
== END 2016-07-20 11:03 | disposition home or self-care (01) ==
LOC: NEPE 16:14 → NEPJ 07-20 11:03
DX: F43.25 Adjustment disorder with mixed disturbance of emotions and conduct (principal); F17.200 Nicotine dependence, unspecified, uncomplicated; R00.0 Tachycardia, unspecified; F25.9 Schizoaffective disorder, unspecified; F41.9 Anxiety disorder, unspecified; F32.9 Major depressive disorder, single episode, unspecified; F14.90 Cocaine use, unspecified, uncomplicated; F12.90 Cannabis use, unspecified, uncomplicated; Z59.0 Homelessness
CPT/HCPCS: 80053; 80307; 81001; 85025; 96360; 99285; J7030

== ENCOUNTER 2016-07-22 02:36 | Emergency (ER) | payer SELFPAY ==
[~2016-07-22] VITALS: Ht 182.9 cm; Wt 80.0 kg
[2016-07-22 02:39] VITALS: BP 127/91; PULSE 74; RESP 20; TEMP 98.1; O2SAT 98
[2016-07-22] MEDS ORDERED: diphenhydrAMINE HCL 50 MG/ML VIAL IV PUSH ONE (02:45)
[2016-07-22] MEDS ORDERED: HALOPERIDOL LACTATE 5 MG/ML AMP IM ONE (02:45)
[2016-07-22] MEDS ORDERED: LORazepam 2 MG/ML VIAL IV PUSH ONE (02:45)
--- NOTE | 2016-07-22 02:56 | PD ---
HPI Chief Complaint: Psychiatric Symptoms Time Seen by Provider: 02:44 Travel History International Travel<30 days: No Contact w/Intl Traveler<30days: No Traveled to known affect area: No History of Present Illness HPI The patient is a 35 year old male who presents to the [facility] emergency department with a history of being brought in as a Brandt act by the police due to reports of planning to kill himself because he is unable to feed himself. According to the police, the patient had been walking up to multiple people asking for money for food. When they would not given money he with threatened to kill himself by jumping off of a bridge. The patient has a known history of psychiatric disorder area he has not been on his medication recently. The patient also has a known history of polysubstance abuse. He reports that he has been in "smoking dope today". The patient reports to me that he believes that the world is fake and that police officers robots. The patient denies having any other acute medical complaints although he refuses to answer any specifics regarding his review of systems. [facility] Past Medical History Narrative Medical The patient's past medical history is significant for schizophrenia, polysubstance abuse. Arthritis: No Asthma: No Autoimmune Disease: No Blood Disorders: No Anxiety: Yes Depression: Yes (w/ suicidal ideation) Heart Rhythm Problems: Yes (tachycardia) Cancer: No Cardiovascular Problems: Yes (tachycardia) High Cholesterol: No Chest Pain: No Congestive Heart Failure: No COPD: No Cerebrovascular Accident: No Diabetes: No Diminished Hearing: No Endocrine: No GERD: No Glaucoma: No Genitourinary: No Headaches: No Hepatitis: No Hiatal Hernia: No Hypertension: No Immune Disorder: No Musculoskeletal: No Neurologic: No Psychiatric: Yes (psychosis) Respiratory: No Immunizations Current: No Migraines: No Myocardial Infarction: No Schizophrenia: Yes Seizures: No Sleep Apnea: No Ulcer: No Tetanus Vaccination: Unknown Influenza Vaccination: No Past Surgical History Narrative Surgical The patient's past surgical history is significant for maxillofacial surgery related to a fracture. Abdominal Surgery: No AICD: No Appendectomy: No Cardiac Surgery: No Cholecystectomy: No Ear Surgery: Yes Endocrine Surgery: No Eye Surgery: Yes (left eye orbit) Genitourinary Surgery: No Gynecologic Surgery: No Neurologic Surgery: No Oral Surgery: Yes (facial plate) Pacemaker: No Thoracic Surgery: No Other Surgery: Yes (plate in face) Social History Alcohol Use: Yes (occassional 2 beers week. ) Tobacco Use: Yes (1 PPD) Substance Use: Yes (COCAINE, MARIJUANA, K2, DENIES IVDA ) Allergies-Medications (Allergen,Severity, Reaction): Coded Allergies: Shellfish (Verified Allergy, Severe, EDEMA, HIVES, 07/22/16) Reported Meds & Prescriptions Reported Meds & Active Scripts Active No Active Prescriptions or Reported Medications Review of Systems ROS Limitations: Refused Musculoskeletal: No: Pain Psychiatric: Positive: Suicidal Ideations, Disorder of Thought, Mood Disorder, Substance Abuse Physical Exam Narrative General: The patient is a well-developed well-nourished male who arrives in handcuffs and in no acute distress. Head and Neck exam: Head is normocephalic atraumatic. Eyes: EOMI, pupils are equal round and reactive to light. Nose: Midline septum with pink mucous membranes Mouth: Dentition unremarkable. Moist mucus membranes. Posterior oropharynx is not erythematous. No tonsillar hypertrophy. Uvula midline. Airway patent. Neck: No palpable lymphadenopathy. No nuchal rigidity. No thyromegaly. Cardiovascular: Regular rate and rhythm without murmurs, gallops, or rubs. No pulse deficit to the extremities and simultaneous auscultation and palpation of his radial artery. Lungs: Clear to auscultation bilaterally. No wheezes, rhonchi, or rales. Abdomen: Soft, without tenderness to palpation in all 4 quadrants of the abdomen. No guarding, rebound, or rigidity. Extremities: No clubbing, cyanosis, or edema. No extremity pain or deformity noted. Neurologic Exam: Grossly nonfocal. Skin Exam: No rash noted. Intact skin that is warm and dry. Data Data Last Documented VS Vital Signs Date Time Temp Pulse Resp B/P Pulse Ox O2 Delivery O2 Flow Rate FiO2 07/22/16 02:39 98.1 74 20 127/91 98 Orders Haloperidol Inj (Haldol Inj) (07/22/16 02:45) Lorazepam Inj (Ativan Inj) (07/22/16 02:45) Diphenhydramine Inj (Benadryl Inj) (07/22/16 02:45) Complete Blood Count With Diff (07/22/16 02:46) Comprehensive Metabolic Panel (07/22/16 02:46) Psych Screen (07/22/16 02:46) Drug Screen, Random Urine (07/22/16 02:46) Alcohol (Ethanol) (07/22/16 02:46) Salicylates (Aspirin) (07/22/16 02:46) Tylenol (Acetaminophen) (07/22/16 02:46) Labs Laboratory Tests Test 07/22/16 02:55 White Blood Count 7.1 TH/MM3 Red Blood Count 4.05 MIL/MM3 Hemoglobin 12.1 GM/DL Hematocrit 35.9 % Mean Corpuscular Volume 88.7 FL Mean Corpuscular Hemoglobin 29.9 PG Mean Corpuscular Hemoglobin 33.7 % Concent Red Cell Distribution Width 15.5 % Platelet Count 229 TH/MM3 Mean Platelet Volume 9.5 FL Neutrophils (%) (Auto) 65.8 % Lymphocytes (%) (Auto) 25.9 % Monocytes (%) (Auto) 5.9 % Eosinophils (%) (Auto) 1.3 % Basophils (%) (Auto) 1.1 % Neutrophils # (Auto) 4.7 TH/MM3 Lymphocytes # (Auto) 1.9 TH/MM3 Monocytes # (Auto) 0.4 TH/MM3 Eosinophils # (Auto) 0.1 TH/MM3 Basophils # (Auto) 0.1 TH/MM3 CBC Comment DIFF FINAL Differential Comment Sodium Level 143 MEQ/L Potassium Level 3.8 MEQ/L Chloride Level 110 MEQ/L Carbon Dioxide Level 24.6 MEQ/L Anion Gap 8 MEQ/L Blood Urea Nitrogen 11 MG/DL Creatinine 0.91 MG/DL Estimat Glomerular Filtration 114 ML/MIN Rate Random Glucose 101 MG/DL Calcium Level 9.1 MG/DL Total Bilirubin 0.2 MG/DL Aspartate Amino Transf 33 U/L (AST/SGOT) Alanine Aminotransferase 46 U/L (ALT/SGPT) Alkaline Phosphatase 69 U/L Total Protein 7.1 GM/DL Albumin 3.8 GM/DL Salicylates Level LESS THAN 1.7 MG/DL Acetaminophen Level LESS THAN 2.0 MCG/ML Ethyl Alcohol Level LESS THAN 3 MG/DL MDM Medical Decision Making Medical Screen Exam Complete: Yes Emergency Medical Condition: Yes Medical Record Reviewed: Yes Differential Diagnosis Acute psychosis related to exacerbation of schizophrenia off medication, versus substance induced mood disorder Narrative Course During the course of the patients emergency department visit, the patients history, examination, and differential diagnosis were reviewed with the patient. The patient had IV access obtained and blood work sent for analysis. The patient was on a disposal man with oximetry and blood pressure monitoring. The patient's Brandt act was reviewed. A psychiatric screen was ordered. The patient was provided Haldol, Benadryl, Ativan for sedation due to continued agitation. The patients laboratory studies were reviewed and remarkable for a white count of 7.1, hemoglobin 12.1, platelets 229 with a normal differential, CMP is remarkable for chloride of 110, salicylate less than 1.7 acetaminophen less than 2, alcohol less than 3. The patient has been medically clear for evaluation by the psychiatric screener under a Brandt act. Diagnosis Primary Impression: Acute psychosis Additional Impression: Suicidal ideations Scripts No Active Prescriptions or Reported Meds Haylee Gordon MD Jul 22, 2016 02:56
[2016-07-22 03:24] LABS: AUTOMATED NEUTROPHIL # 4.7 TH/MM3 (1.8-7.7); BASOPHIL # 0.1 TH/MM3 (0-0.2); BASOPHIL % 1.1 % (0.0-2.0); EOSINOPHIL # 0.1 TH/MM3 (0-0.4); EOSINOPHIL % 1.3 % (0.0-4.0); HEMATOCRIT 35.9 % (39.0-51.0); HEMO FLAGS DIFF FINAL; LYMPH % 25.9 % (9.0-44.0); LYMPHOCYTE # 1.9 TH/MM3 (1.0-4.8); MEAN CELL VOLUME 88.7 FL (80.0-100.0); MEAN CORPUSCULAR HEMOGLOBIN 29.9 PG (27.0-34.0); MEAN CORPUSCULAR HGB CONC 33.7 % (32.0-36.0); MONO % 5.9 % (0.0-8.0); NEUT % 65.8 % (16.0-70.0); PLATELET COUNT 229 TH/MM3 (150-450); RED BLOOD COUNT 4.05 MIL/MM3 (4.50-5.90); RED CELL DISTRIBUTION WIDTH 15.5 % (11.6-17.2); WHITE BLOOD COUNT 7.1 TH/MM3 (4.0-11.0)
[2016-07-22 03:36] LABS: ANION GAP 8 MEQ/L (5-15); AST (GOT) 33 U/L (15-37); BICARBONATE 24.6 MEQ/L (21.0-32.0); BLOOD UREA NITROGEN 11 MG/DL (7-18); CHLORIDE 110 MEQ/L (98-107); GLOMERULAR FILTRATION RATE 114 ML/MIN (>89); POTASSIUM 3.8 MEQ/L (3.5-5.1); SODIUM (NA) 143 MEQ/L (136-145)
[2016-07-22 03:39] LABS: ACETAMINOPHEN LESS THAN 2.0 MCG/ML (10.0-30.0); ALKALINE PHOSPHATASE 69 U/L (45-117); ALT (GPT) 46 U/L (12-78); TOTAL BILIRUBIN ADULT 0.2 MG/DL (0.2-1.0)
[2016-07-22 08:45] VITALS: BP 115/73; PULSE 76; RESP 20; TEMP 98.6; O2SAT 98
[2016-07-22] MEDS ORDERED: CELE20TA PO (10:30)
--- NOTE | 2016-07-22 10:35 | PD ---
History of Present Illness Chief Complaint: Psychiatric Symptoms Time Seen by Provider: 10:00 Travel History International Travel<30 Days: No Contact w/Intl Traveler<30days: No Known affected area: No Legal Status Legal Status: Brandt Act Brandt Act Signed By: Alicia Real History of Present Illness: This is a 35-year-old male, well known to this physician and the staff at the emergency department, who was Brandt acted for making suicidal threats. The patient has been variously diagnosed with substance abuse disorders, schizophrenia, schizoaffective disorder, etc. On this occasion he reportedly was panhandling for money in order to obtain food and when he could not obtain enough food he told police he was suicidal. However, upon interview the patient admits to buying and smoking marijuana. Patient has been repeatedly seen in this emergency department after intoxication with various substances. He also wants to eat breakfast this morning and received a prescription for Celexa. He is not currently suicidal, homicidal or demonstrating psychosis. This physician feels it is counter therapeutic to give into his manipulations and he will be referred back to [facility] for outpatient treatment. PFSH Past Medical History Arthritis: No Asthma: No Autoimmune Disease: No Blood Disorders: No Anxiety: Yes Depression: Yes (w/ suicidal ideation) Heart Rhythm Problems: Yes (tachycardia) Cancer: No Cardiovascular Problems: Yes (tachycardia) High Cholesterol: No Chest Pain: No Congestive Heart Failure: No COPD: No Cerebrovascular Accident: No Diabetes: No Diminished Hearing: No Endocrine: No GERD: No Glaucoma: No Genitourinary: No Headaches: No Hepatitis: No Hiatal Hernia: No Hypertension: No Immune Disorder: No Musculoskeletal: No Neurologic: No Psychiatric: Yes (psychosis) Respiratory: No Immunizations Current: No Migraines: No Myocardial Infarction: No Schizophrenia: Yes Seizures: No Sleep Apnea: No Ulcer: No Tetanus Vaccination: Unknown Influenza Vaccination: No Past Surgical History Abdominal Surgery: No AICD: No Appendectomy: No Cardiac Surgery: No Cholecystectomy: No Ear Surgery: Yes Endocrine Surgery: No Eye Surgery: Yes (left eye orbit) Genitourinary Surgery: No Gynecologic Surgery: No Neurologic Surgery: No Oral Surgery: Yes (facial plate) Pacemaker: No Thoracic Surgery: No Other Surgery: Yes (plate in face) Psychiatric History Psychiatric History Hx Psychiatric Treatment: MEDICAL RECORSDS GO Back to 2003 WHERE IT WAS NOTED THAT PATIENT BEGAN HIS VISITS FOR SUBSTANCE ABUSE AND PSYCHOSIS. PATIENT STATED THAT HE HAS HISTORY OF BEING DIAGNOSED WITH SCHIZOAFFECTIVE DISORDER. PATIENT HAS HAD SEVERAL VISITS TO [facility] ED. PATIENT HAS A LONG HISTORY WITH [facility], PT WAS DISCHARGED FROM [facility] ON, 05/30/16. History of Inpatient Treatment: Yes Guns or firearms in home: No Social History Hx Alcohol Use: Yes (occassional 2 beers week. ) Hx Tobacco Use: Yes (1 PPD) Hx Substance Use: Yes (COCAINE, MARIJUANA, K2, DENIES IVDA ) Substance Use Type: Marijuana Other Substances Used: HX OF CRACK PER RECORDS Hx of Substance Use Treatment: No Allergies-Medications (Allergen,Severity, Reaction): Coded Allergies: Shellfish (Verified Allergy, Severe, EDEMA, HIVES, 07/22/16) Reported Meds & Prescriptions Reported Meds & Active Scripts Active Celexa (Citalopram Hydrobromide) 20 Mg Tab 20 Mg PO DAILY Review of Systems ROS Limitations: Clinical Condition Exam Exam Limitations: Clinical Condition Alert: Yes [place]: Person, Place, Date, Situation Mood: Calm Affect: Appropriate Speech: Clear Eye Contact: Normal Memory Intact: Immediate, Recent, Remote Insight/Judgement Adequate except for drug use. [facility] Medical Decision Making Medical Record Reviewed: Yes Assessment/Plan As stated previously, this physician feels the patient does not meet Brandt act criteria and he does not meet criteria for inpatient psychiatric hospitalization. He continues to use drugs and then manipulate the system for care and feeding. This physician believes it is counter therapeutic to admit the patient as a result of this manipulative behavior. However, a prescription for Celexa was provided to the patient per his request. The patient can follow up with [facility] where he is supposed to be treated. Orders Haloperidol Inj (Haldol Inj) (07/22/16 02:45) Lorazepam Inj (Ativan Inj) (07/22/16 02:45) Diphenhydramine Inj (Benadryl Inj) (07/22/16 02:45) Complete Blood Count With Diff (07/22/16 02:46) Comprehensive Metabolic Panel (07/22/16 02:46) Psych Screen (07/22/16 02:46) Drug Screen, Random Urine (07/22/16 02:46) Alcohol (Ethanol) (07/22/16 02:46) Salicylates (Aspirin) (07/22/16 02:46) Tylenol (Acetaminophen) (07/22/16 02:46) Diet Regular Basic (07/22/16 Breakfast) Results Vital Signs Date Time Temp Pulse Resp B/P Pulse Ox O2 Delivery O2 Flow Rate FiO2 07/22/16 08:45 98.6 76 20 115/73 98 Room Air 07/22/16 02:39 98.1 74 20 127/91 98 Laboratory Tests Test 07/22/16 02:55 White Blood Count 7.1 Red Blood Count 4.05 Hemoglobin 12.1 Hematocrit 35.9 Mean Corpuscular Volume 88.7 Mean Corpuscular Hemoglobin 29.9 Mean Corpuscular Hemoglobin 33.7 Concent Red Cell Distribution Width 15.5 Platelet Count 229 Mean Platelet Volume 9.5 Neutrophils (%) (Auto) 65.8 Lymphocytes (%) (Auto) 25.9 Monocytes (%) (Auto) 5.9 Eosinophils (%) (Auto) 1.3 Basophils (%) (Auto) 1.1 Neutrophils # (Auto) 4.7 Lymphocytes # (Auto) 1.9 Monocytes # (Auto) 0.4 Eosinophils # (Auto) 0.1 Basophils # (Auto) 0.1 CBC Comment DIFF FINAL Differential Comment Sodium Level 143 Potassium Level 3.8 Chloride Level 110 Carbon Dioxide Level 24.6 Anion Gap 8 Blood Urea Nitrogen 11 Creatinine 0.91 Estimat Glomerular Filtration 114 Rate Random Glucose 101 Calcium Level 9.1 Total Bilirubin 0.2 Aspartate Amino Transf 33 (AST/SGOT) Alanine Aminotransferase 46 (ALT/SGPT) Alkaline Phosphatase 69 Total Protein 7.1 Albumin 3.8 Salicylates Level LESS THAN 1.7 Acetaminophen Level LESS THAN 2.0 Ethyl Alcohol Level LESS THAN 3 Diagnosis Primary Impression: Adjustment disorder with mixed disturbance of emotions and conduct Prescriptions Citalopram (Celexa)20 Mg Tab20 Mg PO DAILY #30 TAB Ref 0 Prov:Romeo Alexander MD 07/22/16 Romeo Alexander MD Jul 22, 2016 10:35
== END 2016-07-22 11:44 | disposition home or self-care (01) ==
LOC: NEPE 02:36 → NEPD 11:44
DX: F43.25 Adjustment disorder with mixed disturbance of emotions and conduct (principal); R45.851 Suicidal ideations; F32.9 Major depressive disorder, single episode, unspecified; F41.9 Anxiety disorder, unspecified; F20.9 Schizophrenia, unspecified
CPT/HCPCS: 80053; 80307; 85025; 96372; 96374; 96375; 99285; J1200; J1630; J2060

== ENCOUNTER 2016-08-11 02:21 | Emergency (ER) | payer OTHER ==
[~2016-08-11] VITALS: Ht 177.8 cm; Wt 70.0 kg
[~2016-08-11 02:21] MED LIST changes: -BENZ0.5T PO; +CELE20TA PO; -LURA40 PO
[2016-08-11 02:38] VITALS: BP 126/71; PULSE 77; RESP 18; TEMP 98.2; O2SAT 98
[2016-08-11] MEDS ORDERED: LORazepam 2 MG/ML VIAL IM ONE (02:45)
[2016-08-11] MEDS ORDERED: HALOPERIDOL LACTATE 5 MG/ML AMP IM ONE (02:45)
[2016-08-11 02:52] LABS: AUTOMATED NEUTROPHIL # 3.1 TH/MM3 (1.8-7.7); BASOPHIL # 0.1 TH/MM3 (0-0.2); BASOPHIL % 1.1 % (0.0-2.0); EOSINOPHIL # 0.4 TH/MM3 (0-0.4); EOSINOPHIL % 5.1 % (0.0-4.0); HEMATOCRIT 37.7 % (39.0-51.0); HEMO FLAGS DIFF FINAL; LYMPH % 42.7 % (9.0-44.0); LYMPHOCYTE # 3.1 TH/MM3 (1.0-4.8); MEAN CELL VOLUME 89.2 FL (80.0-100.0); MEAN CORPUSCULAR HEMOGLOBIN 29.8 PG (27.0-34.0); MEAN CORPUSCULAR HGB CONC 33.4 % (32.0-36.0); MONO % 8.4 % (0.0-8.0); NEUT % 42.7 % (16.0-70.0); PLATELET COUNT 238 TH/MM3 (150-450); RED BLOOD COUNT 4.23 MIL/MM3 (4.50-5.90); RED CELL DISTRIBUTION WIDTH 14.6 % (11.6-17.2); WHITE BLOOD COUNT 7.2 TH/MM3 (4.0-11.0)
--- NOTE | 2016-08-11 02:57 | PD ---
HPI Chief Complaint: Psychiatric Symptoms Time Seen by Provider: 02:52 Travel History International Travel<30 days: No Contact w/Intl Traveler<30days: No Traveled to known affect area: No History of Present Illness HPI 35-year-old black male presents to emergency department under Brandt act by PD. The patient had notified police that he had a weapon and he was feeling out-of- control and having thoughts of self-harm. The patient states that he has a history of mental illness and has not been compliant with his medications. He also states that he has been smoking crack cocaine and marijuana. He denies any toxic ingestions. He denies any homicidal ideation. He denies any medical complaints. PFSH Past Medical History Arthritis: No Asthma: No Autoimmune Disease: No Blood Disorders: No Anxiety: Yes Depression: Yes (w/ suicidal ideation) Heart Rhythm Problems: Yes (tachycardia) Cancer: No Cardiovascular Problems: Yes (tachycardia) High Cholesterol: No Chest Pain: No Congestive Heart Failure: No COPD: No Cerebrovascular Accident: No Diabetes: No Diminished Hearing: No Endocrine: No GERD: No Glaucoma: No Genitourinary: No Headaches: No Hepatitis: No Hiatal Hernia: No Hypertension: No Immune Disorder: No Musculoskeletal: No Neurologic: No Psychiatric: Yes (psychosis) Respiratory: No Immunizations Current: No Migraines: No Myocardial Infarction: No Schizophrenia: Yes Seizures: No Sleep Apnea: No Ulcer: No Tetanus Vaccination: < 5 Years Influenza Vaccination: No Past Surgical History Abdominal Surgery: No AICD: No Appendectomy: No Cardiac Surgery: No Cholecystectomy: No Ear Surgery: Yes Endocrine Surgery: No Eye Surgery: Yes (left eye orbit) Genitourinary Surgery: No Gynecologic Surgery: No Neurologic Surgery: No Oral Surgery: Yes (facial plate) Pacemaker: No Thoracic Surgery: No Other Surgery: Yes (plate in face) Social History Alcohol Use: Yes (occassional 2 beers week. ) Tobacco Use: Yes (1 PPD) Substance Use: Yes (COCAINE, MARIJUANA, K2, DENIES IVDA ) Allergies-Medications (Allergen,Severity, Reaction): Coded Allergies: Shellfish (Verified Allergy, Severe, EDEMA, HIVES, 07/22/16) Reported Meds & Prescriptions Reported Meds & Active Scripts Active Celexa (Citalopram Hydrobromide) 20 Mg Tab 20 Mg PO DAILY Review of Systems Except as stated in HPI: all other systems reviewed are Neg Psychiatric: Positive: Suicidal Ideations, Disorder of Thought, Substance Abuse , No: Anxiety, Depression, Mood Disorder, Homicidal Ideation Physical Exam Narrative GENERAL: Well-nourished, well-developed patient. Patient is loud and directly confrontational. He is in handcuffs by PD. He is very agitated and has an aggressive demeanor. SKIN: Warm and dry. HEAD: Normocephalic and atraumatic. EYES: No scleral icterus. No injection or drainage. ENT: No nasal drainage noted. Mucous membranes pink. Airway patent. NECK: Supple, trachea midline. Moves head freely without obvious discomfort. CARDIOVASCULAR: Regular rate and rhythm without murmurs, gallops, or rubs. RESPIRATORY: Breath sounds equal bilaterally. No accessory muscle use. GASTROINTESTINAL: Abdomen soft, non-tender, nondistended. EXTREMITIES: No cyanosis or edema. BACK: Nontender without obvious deformity. No CVA tenderness. NEURO: Patient is alert and oriented. no sensorimotor deficits. Nonfocal. Normal speech. PSYCH: No delusions. No auditory or visual hallucinations. Data Data Last Documented VS Vital Signs Date Time Temp Pulse Resp B/P Pulse Ox O2 Delivery O2 Flow Rate FiO2 08/11/16 04:53 81 18 121/66 99 Room Air 08/11/16 02:38 98.2 Orders Complete Blood Count With Diff (08/11/16 02:31) Comprehensive Metabolic Panel (08/11/16 02:31) Psych Screen (08/11/16 02:31) Restraints Violent (08/11/16 02:31) Drug Screen, Random Urine (08/11/16 02:31) Alcohol (Ethanol) (08/11/16 02:31) Salicylates (Aspirin) (08/11/16 02:31) Tylenol (Acetaminophen) (08/11/16 02:31) Haloperidol Inj (Haldol Inj) (08/11/16 02:45) Lorazepam Inj (Ativan Inj) (08/11/16 02:45) Labs Laboratory Tests Test 08/11/16 02:40 White Blood Count 7.2 TH/MM3 Red Blood Count 4.23 MIL/MM3 Hemoglobin 12.6 GM/DL Hematocrit 37.7 % Mean Corpuscular Volume 89.2 FL Mean Corpuscular Hemoglobin 29.8 PG Mean Corpuscular Hemoglobin 33.4 % Concent Red Cell Distribution Width 14.6 % Platelet Count 238 TH/MM3 Mean Platelet Volume 9.4 FL Neutrophils (%) (Auto) 42.7 % Lymphocytes (%) (Auto) 42.7 % Monocytes (%) (Auto) 8.4 % Eosinophils (%) (Auto) 5.1 % Basophils (%) (Auto) 1.1 % Neutrophils # (Auto) 3.1 TH/MM3 Lymphocytes # (Auto) 3.1 TH/MM3 Monocytes # (Auto) 0.6 TH/MM3 Eosinophils # (Auto) 0.4 TH/MM3 Basophils # (Auto) 0.1 TH/MM3 CBC Comment DIFF FINAL Differential Comment Sodium Level 144 MEQ/L Potassium Level 3.6 MEQ/L Chloride Level 112 MEQ/L Carbon Dioxide Level 25.7 MEQ/L Anion Gap 6 MEQ/L Blood Urea Nitrogen 18 MG/DL Creatinine 1.04 MG/DL Estimat Glomerular Filtration 97 ML/MIN Rate Random Glucose 93 MG/DL Calcium Level 8.8 MG/DL Total Bilirubin 0.3 MG/DL Aspartate Amino Transf 36 U/L (AST/SGOT) Alanine Aminotransferase 53 U/L (ALT/SGPT) Alkaline Phosphatase 76 U/L Total Protein 7.2 GM/DL Albumin 3.7 GM/DL Salicylates Level 1.8 MG/DL Acetaminophen Level LESS THAN 2.0 MCG/ML Ethyl Alcohol Level LESS THAN 3 MG/DL MDM Medical Decision Making Medical Screen Exam Complete: Yes Emergency Medical Condition: Yes Medical Record Reviewed: Yes Interpretation(s) Laboratory Tests Test 08/11/16 02:40 White Blood Count 7.2 TH/MM3 Red Blood Count 4.23 MIL/MM3 Hemoglobin 12.6 GM/DL Hematocrit 37.7 % Mean Corpuscular Volume 89.2 FL Mean Corpuscular Hemoglobin 29.8 PG Mean Corpuscular Hemoglobin 33.4 % Concent Red Cell Distribution Width 14.6 % Platelet Count 238 TH/MM3 Mean Platelet Volume 9.4 FL Neutrophils (%) (Auto) 42.7 % Lymphocytes (%) (Auto) 42.7 % Monocytes (%) (Auto) 8.4 % Eosinophils (%) (Auto) 5.1 % Basophils (%) (Auto) 1.1 % Neutrophils # (Auto) 3.1 TH/MM3 Lymphocytes # (Auto) 3.1 TH/MM3 Monocytes # (Auto) 0.6 TH/MM3 Eosinophils # (Auto) 0.4 TH/MM3 Basophils # (Auto) 0.1 TH/MM3 CBC Comment DIFF FINAL Differential Comment Sodium Level 144 MEQ/L Potassium Level 3.6 MEQ/L Chloride Level 112 MEQ/L Carbon Dioxide Level 25.7 MEQ/L Anion Gap 6 MEQ/L Blood Urea Nitrogen 18 MG/DL Creatinine 1.04 MG/DL Estimat Glomerular Filtration 97 ML/MIN Rate Random Glucose 93 MG/DL Calcium Level 8.8 MG/DL Total Bilirubin 0.3 MG/DL Aspartate Amino Transf 36 U/L (AST/SGOT) Alanine Aminotransferase 53 U/L (ALT/SGPT) Alkaline Phosphatase 76 U/L Total Protein 7.2 GM/DL Albumin 3.7 GM/DL Salicylates Level 1.8 MG/DL Acetaminophen Level LESS THAN 2.0 MCG/ML Ethyl Alcohol Level LESS THAN 3 MG/DL Differential Diagnosis MDM: High Differential diagnoses: Schizophrenia, schizoaffective disorder, bipolar, anxiety, depression, adjustment reaction, mood disorder NOS, ODD, depressive disorder NOS, dementia, dementia with agitation, psychosis NOS, substance induced mood disorder, intermittent explosive disorder, Asperger syndrome, infection,electrolyte abnormality, malingering. Narrative Course Mental health screening discussed with the patient. Psychiatric screen ordered. Orders for physical restraint, Haldol 5 mg IM and 2 mg of Ativan IM due to patient's agitation and threatening demeanor. I am concerned that the patient has declined to comply with the nursing staff that they are at risk for self- harm and therefore while in restraints have been ordered to ensure the safety of the staff and to protect the patient. Once the patient becomes more compliant in his agitation improves he will then be taken out of restraints per protocol.. This is schizoaffective disorder, substance abuse Diagnosis Primary Impression: Schizoaffective disorder Qualified Code: F25.9 - Schizoaffective disorder, unspecified type Additional Impression: Substance use disorder Condition: Stable Mal Bailey August 11, 2016 02:57
[2016-08-11 03:17] LABS: ALT (GPT) 53 U/L (12-78); ANION GAP 6 MEQ/L (5-15); AST (GOT) 36 U/L (15-37); BICARBONATE 25.7 MEQ/L (21.0-32.0); BLOOD UREA NITROGEN 18 MG/DL (7-18); CHLORIDE 112 MEQ/L (98-107); GLOMERULAR FILTRATION RATE 97 ML/MIN (>89); POTASSIUM 3.6 MEQ/L (3.5-5.1); SODIUM (NA) 144 MEQ/L (136-145)
[2016-08-11 03:20] LABS: ACETAMINOPHEN LESS THAN 2.0 MCG/ML (10.0-30.0); ALKALINE PHOSPHATASE 76 U/L (45-117); TOTAL BILIRUBIN ADULT 0.3 MG/DL (0.2-1.0)
[2016-08-11 04:53] VITALS: BP 121/66; PULSE 81; RESP 18; O2SAT 99
[2016-08-11 06:29] VITALS: BP 111/74; PULSE 72; RESP 18; TEMP 98.1; O2SAT 100
[2016-08-11 11:25] VITALS: PULSE 65; RESP 16; O2SAT 98
--- NOTE | 2016-08-11 14:29 | PD ---
History of Present Illness Chief Complaint: Psychiatric Symptoms Time Seen by Provider: 14:00 Travel History International Travel<30 Days: No Contact w/Intl Traveler<30days: No Known affected area: No Legal Status Legal Status: Brandt Act History of Present Illness: History of Present Illness HPI 35-year-old black male with history of substance abuse, substance induced mood disorder, adjustment disorder as well as schizophrenia who is well known to [facility] psychiatric department. He presents to emergency department under Brandt act initiated by . The BA reads as follows" Jonathan stated that he wanted to kill himself. When asked how he stated that he did not know . Mr. Robles wants to kill himself because it's a fake world. " . Patient upon arrival to ED was agitated and required medication as well as restraints. He admitted to having smoked crack cocaine as well as marijuana. he has been monitored here in ed and has been sleeping and has presented no further behavioral concerns and no suicidality. EMR is reviewed. he has been to ED on July 19 as well as on July 22, 2016. In June he was seen and was sent to [facility] for treatment. he has not been medication compliant. ED nurse reports that he has not been cooperative with procedures but has been asking for food. Patient is seen with nurse Marcello from pod. he is asleep but awakens with verbal stimuli . He begrudgingly answers some questions for us and tells me that he is in the hospital " because the world is fake and that [facility] is fake". Patient has not made any attempts at harming himself. In reviewing clinical documentation from 2009 this has been his complaint since that time. He does not appear to be responding to internal stimuli at this time. He is not happy when he is told that he may be discharged from ED and advised to follow up with [facility] but complies with process. He makes threats such as " if I am discharged I may hurt myself" but this appears to be as a manipulative remark in order to obtain mcc here in the hospital. [facility] Past Medical History Arthritis: No Asthma: No Autoimmune Disease: No Blood Disorders: No Anxiety: Yes Depression: Yes (w/ suicidal ideation) Heart Rhythm Problems: Yes (tachycardia) Cancer: No Cardiovascular Problems: Yes (tachycardia) High Cholesterol: No Chest Pain: No Congestive Heart Failure: No COPD: No Cerebrovascular Accident: No Diabetes: No Diminished Hearing: No Endocrine: No GERD: No Glaucoma: No Genitourinary: No Headaches: No Hepatitis: No Hiatal Hernia: No Hypertension: No Immune Disorder: No Musculoskeletal: No Neurologic: No Psychiatric: Yes (psychosis) Respiratory: No Immunizations Current: No Migraines: No Myocardial Infarction: No Schizophrenia: Yes Seizures: No Sleep Apnea: No Ulcer: No Tetanus Vaccination: < 5 Years Influenza Vaccination: No Past Surgical History Abdominal Surgery: No AICD: No Appendectomy: No Cardiac Surgery: No Cholecystectomy: No Ear Surgery: Yes Endocrine Surgery: No Eye Surgery: Yes (left eye orbit) Genitourinary Surgery: No Gynecologic Surgery: No Neurologic Surgery: No Oral Surgery: Yes (facial plate) Pacemaker: No Thoracic Surgery: No Other Surgery: Yes (plate in face) Psychiatric History Psychiatric History Hx Psychiatric Treatment: MEDICAL RECORSDS GO Back to 2003 WHERE IT WAS NOTED THAT PATIENT BEGAN HIS VISITS FOR SUBSTANCE ABUSE AND PSYCHOSIS. PATIENT HAS HAD SEVERAL VISITS TO [facility] ED. PATIENT HAS A LONG HISTORY WITH ACT/SMA, History of Inpatient Treatment: Yes (Last [facility] admission in .) Guns or firearms in home: No Social History Single homeless male. Hx Alcohol Use: Yes (occassional 2 beers week. ) Hx Tobacco Use: Yes (1 PPD) Hx Substance Use: Yes (COCAINE, MARIJUANA, K2, DENIES IVDA ) Substance Use Type: Crack, Marijuana Other Substances Used: HX OF CRACK PER RECORDS Hx of Substance Use Treatment: No Family Psychiatric History unknown Allergies-Medications (Allergen,Severity, Reaction): Coded Allergies: Shellfish (Verified Allergy, Severe, EDEMA, HIVES, 07/22/16) Reported Meds & Prescriptions Reported Meds & Active Scripts Active Celexa (Citalopram Hydrobromide) 20 Mg Tab 20 Mg PO DAILY Review of Systems ROS Limitations: Uncooperative Exam Alert: Yes Loa: Person (ox4) Mood: Calm (initially. Angry during later part of visit) Affect: Appropriate Speech: Clear (answers only some questions of his choosing. ) Eye Contact: Indirect Memory Intact: Comment (not tested) Hallucinations: Other (none at present) Delusions: No Suicidal: Ideation (only in context of possible discharge. ) Homicidal: Ideation (deneis any) Insight/Judgement poor. poor MDM Medical Decision Making Medical Record Reviewed: Yes Assessment/Plan Patient is a 35 year old male under a BA after he contacted the police and reported that he wanted to kill himself. He did not make any attempts . Patient admitted to having smoked crack cocaine which is most likely contributing to his current presentation. He has been allowed to sleep and has been asking for food from staff. He becomes angry when discharge is discussed. There is a strong suspicion that he is malingering his symptoms in order to obtain secondary gains such as mcc. At this time it is determined that he does not meet BA criteria. The BA will be lifted. The patient has been referred to [facility] but he has not followed up with treatment recommendations but will once again be referred. At this time it is determined that there is no therapeutic benefits of admitting him to psychiatry. Orders Complete Blood Count With Diff (08/11/16 02:31) Comprehensive Metabolic Panel (08/11/16 02:31) Psych Screen (08/11/16 02:31) Restraints Violent (08/11/16 02:31) Drug Screen, Random Urine (08/11/16 02:31) Alcohol (Ethanol) (08/11/16 02:31) Salicylates (Aspirin) (08/11/16 02:31) Tylenol (Acetaminophen) (08/11/16 02:31) Haloperidol Inj (Haldol Inj) (08/11/16 02:45) Lorazepam Inj (Ativan Inj) (08/11/16 02:45) Diet Regular Basic (08/11/16 Breakfast) Results Vital Signs Date Time Temp Pulse Resp B/P Pulse Ox O2 Delivery O2 Flow Rate FiO2 08/11/16 14:11 78 100 08/11/16 11:25 65 16 98 Room Air 08/11/16 06:29 98.1 72 18 111/74 100 Room Air 08/11/16 04:53 81 18 121/66 99 Room Air 08/11/16 02:38 18 08/11/16 02:38 98.2 77 18 126/71 98 Room Air Laboratory Tests Test 08/11/16 02:40 White Blood Count 7.2 Red Blood Count 4.23 Hemoglobin 12.6 Hematocrit 37.7 Mean Corpuscular Volume 89.2 Mean Corpuscular Hemoglobin 29.8 Mean Corpuscular Hemoglobin 33.4 Concent Red Cell Distribution Width 14.6 Platelet Count 238 Mean Platelet Volume 9.4 Neutrophils (%) (Auto) 42.7 Lymphocytes (%) (Auto) 42.7 Monocytes (%) (Auto) 8.4 Eosinophils (%) (Auto) 5.1 Basophils (%) (Auto) 1.1 Neutrophils # (Auto) 3.1 Lymphocytes # (Auto) 3.1 Monocytes # (Auto) 0.6 Eosinophils # (Auto) 0.4 Basophils # (Auto) 0.1 CBC Comment DIFF FINAL Differential Comment Sodium Level 144 Potassium Level 3.6 Chloride Level 112 Carbon Dioxide Level 25.7 Anion Gap 6 Blood Urea Nitrogen 18 Creatinine 1.04 Estimat Glomerular Filtration 97 Rate Random Glucose 93 Calcium Level 8.8 Total Bilirubin 0.3 Aspartate Amino Transf 36 (AST/SGOT) Alanine Aminotransferase 53 (ALT/SGPT) Alkaline Phosphatase 76 Total Protein 7.2 Albumin 3.7 Salicylates Level 1.8 Acetaminophen Level LESS THAN 2.0 Ethyl Alcohol Level LESS THAN 3 Diagnosis Primary Impression: Substance abuse Additional Impressions: Schizoaffective disorder Substance induced mood disorder Psychiatrically Cleared: Yes Departure Forms: Tests/Procedures Patient Instructions: General Instructions, Schizoaffective Disorder (ED) Disposition: 01 DISCHARGE HOME Condition: Stable Problem Qualifiers Additional Impressions: Schizoaffective disorder Qualified Code: F25.9 - Schizoaffective disorder, unspecified type Ursula Santos August 11, 2016 14:29
== END 2016-08-11 14:45 | disposition home or self-care (01) ==
LOC: NEPD 02:21
DX: F25.9 Schizoaffective disorder, unspecified (principal); Z91.14 Patient's other noncompliance with medication regimen; F14.90 Cocaine use, unspecified, uncomplicated; F41.8 Other specified anxiety disorders; F29 Unspecified psychosis not due to a substance or known physiological condition; F17.210 Nicotine dependence, cigarettes, uncomplicated; F19.94 Other psychoactive substance use, unspecified with psychoactive substance-induced mood disorder
CPT/HCPCS: 80053; 80307; 85025; 96372; 99284; J1630; J2060

== ENCOUNTER 2016-09-02 03:33 | Emergency (ER) | payer SELFPAY ==
[2016-09-02 03:38] VITALS: BP 114/59; PULSE 65; RESP 16; TEMP 98.4; O2SAT 99
[2016-09-02] MEDS ORDERED: ACETAMINOPHEN 325 MG TAB PO ONE (04:00)
--- NOTE | 2016-09-02 04:00 | PD ---
HPI Chief Complaint: Edema Time Seen by Provider: 03:51 Travel History International Travel<30 days: No Contact w/Intl Traveler<30days: No Traveled to known affect area: No History of Present Illness HPI Patient is a 35-year-old male who presents to emergency room evaluation of possible hand edema. Patient reports that he smoked marijuana earlier today and began to see his hands swell up. Reports no trauma or injury to his hands, patient here for evaluation of hand swelling. Patient with no other complaints at this time. PFSH Past Medical History Arthritis: No Asthma: No Autoimmune Disease: No Blood Disorders: No Anxiety: Yes Depression: Yes (w/ suicidal ideation) Heart Rhythm Problems: Yes (tachycardia) Cancer: No Cardiovascular Problems: Yes (tachycardia) High Cholesterol: No Chest Pain: No Congestive Heart Failure: No COPD: No Cerebrovascular Accident: No Diabetes: No Diminished Hearing: No Endocrine: No GERD: No Glaucoma: No Genitourinary: No Headaches: No Hepatitis: No Hiatal Hernia: No Hypertension: No Immune Disorder: No Musculoskeletal: No Neurologic: No Psychiatric: Yes (psychosis) Respiratory: No Immunizations Current: No Migraines: No Myocardial Infarction: No Schizophrenia: Yes Seizures: No Sleep Apnea: No Ulcer: No Tetanus Vaccination: Unknown Influenza Vaccination: No Past Surgical History Abdominal Surgery: No AICD: No Appendectomy: No Cardiac Surgery: No Cholecystectomy: No Ear Surgery: Yes Endocrine Surgery: No Eye Surgery: Yes (left eye orbit) Genitourinary Surgery: No Gynecologic Surgery: No Neurologic Surgery: No Oral Surgery: Yes (facial plate) Pacemaker: No Thoracic Surgery: No Other Surgery: Yes (plate in face) Social History Alcohol Use: No (HX) Tobacco Use: No (HX) Substance Use: Yes (HX COCAINE, MARIJUANA, K2, DENIES IVDA ) Allergies-Medications (Allergen,Severity, Reaction): Coded Allergies: Shellfish (Verified Allergy, Severe, EDEMA, HIVES, 09/02/16) Reported Meds & Prescriptions Reported Meds & Active Scripts Active No Active Prescriptions or Reported Medications Review of Systems General / Constitutional: No: Fever Eyes: No: Visual changes HENT: No: Headaches Cardiovascular: No: Chest Pain or Discomfort Respiratory: No: Shortness of Breath Gastrointestinal: No: Abdominal Pain Genitourinary: No: Dysuria Musculoskeletal: Positive: Edema ("hand swelling" ), No: Pain Skin: No Rash Neurologic: No: Weakness Psychiatric: No: Depression Endocrine: No: Polydipsia Hematologic/Lymphatic: No: Easy Bruising Physical Exam Narrative GENERAL: no acute distress SKIN: Focused skin assessment warm/dry. HEAD: Atraumatic. Normocephalic. EYES: Pupils equal and round. No scleral icterus. No injection or drainage. ENT: No nasal bleeding or discharge. Mucous membranes pink and moist. NECK: Trachea midline. No JVD. CARDIOVASCULAR: Regular rate and rhythm. No murmur appreciated. RESPIRATORY: No accessory muscle use. Clear to auscultation. Breath sounds equal bilaterally. GASTROINTESTINAL: Abdomen soft, non-tender, nondistended. Hepatic and splenic margins not palpable. MUSCULOSKELETAL: No obvious deformities. No clubbing. No cyanosis. No edema. b /l UE: pulses intact, neurovascularly intact, no obvious swelling NEUROLOGICAL: Awake and alert. No obvious cranial nerve deficits. Motor grossly within normal limits. Normal speech. PSYCHIATRIC: Appropriate mood and affect; patient appears under the influence of a substance Data Data Last Documented VS Vital Signs Date Time Temp Pulse Resp B/P Pulse Ox O2 Delivery O2 Flow Rate FiO2 09/02/16 03:38 98.4 65 16 114/59 99 Orders Acetaminophen (Tylenol) (09/02/16 04:00) [facility] Medical Decision Making Medical Screen Exam Complete: Yes Emergency Medical Condition: Yes Interpretation(s) Vital Signs Date Time Temp Pulse Resp B/P Pulse Ox O2 Delivery O2 Flow Rate FiO2 09/02/16 03:38 98.4 65 16 114/59 99 Differential Diagnosis Drug abuse, homelessness, schizophrenia Narrative Course Patient is a 35-year-old male who presents to emergency room under the influence of marijuana with complaints of hand swelling. Patient reports that he noticed his hand swelling after he smoked marijuana today. Patient appears to be under the influence of drugs this time, he does not have any swelling to his hands, pulses are intact, he has no neurological deficits. No signs of trauma or any signs of infection to his hands. Patient does not require any interventions at this time. Patient also reports that he is very tired as he has been walking where, reports that he is homeless. Patient is requesting a meal and a place to sleep tonight. Discussed with patient need to stop using drugs. Discussed with him that he will need to follow up with his primary care doctor. He does not suffer any emergency medical condition at this time. Meal given to him. He will follow up with his pcp and return to ER as needed Diagnosis Primary Impression: Substance abuse Patient Instructions: General Instructions Additional Instructions: Please stop using drugs Please follow up with your primary care doctor Return to ER as needed Scripts No Active Prescriptions or Reported Meds Disposition: 01 DISCHARGE HOME Condition: Stable Richelle Crain DO September 02, 2016 04:00
== END 2016-09-02 04:24 | disposition home or self-care (01) ==
LOC: NEPC 03:33
DX: F19.10 Other psychoactive substance abuse, uncomplicated (principal)
CPT/HCPCS: 99282

== ENCOUNTER 2016-09-21 17:17 | Emergency (ER) | payer SELFPAY ==
[~2016-09-21] VITALS: Ht 180.3 cm; Wt 80.0 kg
[2016-09-21 17:19] VITALS: BP 128/94; PULSE 82; RESP 20; TEMP 97.9; O2SAT 100
--- NOTE | 2016-09-21 17:57 | PD ---
Physical Exam Exam Limitations: Psychotic Date Seen by Provider: Sep 21, 2016 Time Seen by Provider: 17:56 Narrative 36 yo male here for psych eval. Patient not very cooperative but seems to be interacting with internal stimuli. Initially wouldnt talk to us. Wants to speak to psychiatrist. History is limited as patient appears to be psychotic. Vitals sign stable. Patient awaiting bed placement. Data Data Last Documented VS Vital Signs Date Time Temp Pulse Resp B/P Pulse Ox O2 Delivery O2 Flow Rate FiO2 09/21/16 17:19 97.9 82 20 128/94 100 Room Air [facility] Medical Record Reviewed: Yes Supervised Visit with JEAN: No Scripts No Active Prescriptions or Reported Meds Casey Lerner Sep 21, 2016 17:57
[2016-09-21] MEDS ORDERED: HALO0.5T PO (20:07)
--- NOTE | 2016-09-21 20:15 | PD ---
HPI Chief Complaint: Psychiatric Symptoms Time Seen by Provider: 20:08 Travel History International Travel<30 days: No Contact w/Intl Traveler<30days: No Traveled to known affect area: No History of Present Illness HPI Patient is a 36 year old male presenting to the ED for psychiatric evaluation. Pt states that the world is fake, everyone is fake. He has thoughts of suicide and states he attempted to jump off a bridge a week or so ago. He also endorses auditory hallucinations. Pt states he was just discharged from [facility] today. He reports using cocaine and marijuana today after he got out of [facility]. Pt states he lives with his nephew, reports foot pain from walking a lot today. He reports a history of anxiety, depression and schizophrenia. He reports compliance with medications. PFSH Past Medical History Arthritis: No Asthma: No Autoimmune Disease: No Blood Disorders: No Anxiety: Yes Depression: Yes (w/ suicidal ideation) Cancer: No Cardiovascular Problems: Yes (tachycardia) High Cholesterol: No Chest Pain: No Congestive Heart Failure: No COPD: No Cerebrovascular Accident: No Diabetes: No Diminished Hearing: No Endocrine: No GERD: No Glaucoma: No Genitourinary: No Headaches: No Hepatitis: No Hiatal Hernia: No Hypertension: No Immune Disorder: No Musculoskeletal: No Neurologic: No Psychiatric: Yes (psychosis/schizophrenia) Respiratory: No Immunizations Current: No Migraines: No Myocardial Infarction: No Schizophrenia: Yes Seizures: No Sleep Apnea: No Ulcer: No Past Surgical History Abdominal Surgery: No AICD: No Appendectomy: No Cardiac Surgery: No Cholecystectomy: No Ear Surgery: Yes Endocrine Surgery: No Eye Surgery: Yes (left eye orbit) Genitourinary Surgery: No Gynecologic Surgery: No Neurologic Surgery: No Oral Surgery: Yes (facial plate) Pacemaker: No Thoracic Surgery: No Social History Alcohol Use: Yes Tobacco Use: Yes Substance Use: Yes (HX COCAINE, MARIJUANA, K2, DENIES IVDA ) Allergies-Medications (Allergen,Severity, Reaction): Coded Allergies: Shellfish (Verified Allergy, Severe, EDEMA, HIVES, 09/21/16) Reported Meds & Prescriptions Reported Meds & Active Scripts Active Reported Haloperidol 0.5 Mg Tab 0.25 Mg PO BID Review of Systems Except as stated in HPI: all other systems reviewed are Neg Psychiatric: Positive: Depression, Suicidal Ideations, Disorder of Thought, Mood Disorder, Substance Abuse Physical Exam Narrative GENERAL: Well developed, well nourished alert male. Resting in no acute distress. SKIN: Warm and dry. HEAD: Atraumatic. Normocephalic. EYES: Pupils equal and round. No scleral icterus. No injection or drainage. ENT: No nasal bleeding or discharge. Mucous membranes pink and moist. NECK: Trachea midline. No JVD. CARDIOVASCULAR: Regular rate and rhythm. RESPIRATORY: No accessory muscle use. Clear to auscultation. Breath sounds equal bilaterally. GASTROINTESTINAL: Abdomen soft, non-tender, nondistended. Hepatic and splenic margins not palpable. MUSCULOSKELETAL: Extremities without clubbing, cyanosis, or edema. No obvious deformities. NEUROLOGICAL: Awake and alert. No obvious cranial nerve deficits. Motor grossly within normal limits. Five out of 5 muscle strength in the arms and legs. Normal speech. PSYCHIATRIC: Suspicious thoughts, flat mood and affect; insight and judgment impaired. Data Data Last Documented VS Vital Signs Date Time Temp Pulse Resp B/P Pulse Ox O2 Delivery O2 Flow Rate FiO2 09/21/16 17:19 97.9 82 20 128/94 100 Room Air Orders Complete Blood Count With Diff (09/21/16 20:01) Comprehensive Metabolic Panel (09/21/16 20:01) Urinalysis - C+S If Indicated (09/21/16 20:01) Psych Screen (09/21/16 20:01) Drug Screen, Random Urine (09/21/16 20:01) Alcohol (Ethanol) (09/21/16 20:01) Salicylates (Aspirin) (09/21/16 20:01) Tylenol (Acetaminophen) (09/21/16 20:01) Labs Laboratory Tests Test 09/21/16 20:13 White Blood Count 7.8 TH/MM3 Red Blood Count 4.52 MIL/MM3 Hemoglobin 13.0 GM/DL Hematocrit 40.1 % Mean Corpuscular Volume 88.7 FL Mean Corpuscular Hemoglobin 28.8 PG Mean Corpuscular Hemoglobin 32.5 % Concent Red Cell Distribution Width 14.0 % Platelet Count 207 TH/MM3 Mean Platelet Volume 10.3 FL Neutrophils (%) (Auto) 56.5 % Lymphocytes (%) (Auto) 27.6 % Monocytes (%) (Auto) 7.9 % Eosinophils (%) (Auto) 7.4 % Basophils (%) (Auto) 0.6 % Neutrophils # (Auto) 4.4 TH/MM3 Lymphocytes # (Auto) 2.2 TH/MM3 Monocytes # (Auto) 0.6 TH/MM3 Eosinophils # (Auto) 0.6 TH/MM3 Basophils # (Auto) 0.0 TH/MM3 CBC Comment DIFF FINAL Differential Comment Urine Color YELLOW Urine Turbidity CLEAR Urine pH 5.5 Urine Specific [place] 1.034 Urine Protein TRACE mg/dL Urine Glucose (UA) NEG mg/dL Urine Ketones 10 mg/dL Urine Occult Blood NEG Urine Nitrite NEG Urine Bilirubin NEG Urine Urobilinogen 2.0 MG/DL Urine Leukocyte Esterase NEG Urine RBC 1 /hpf Urine WBC 1 /hpf Urine Hyaline Casts 1 /lpf Urine Mucus FEW /lpf Microscopic Urinalysis Comment CULT NOT INDICATED Sodium Level 141 MEQ/L Potassium Level 4.0 MEQ/L Chloride Level 106 MEQ/L Carbon Dioxide Level 25.3 MEQ/L Anion Gap 10 MEQ/L Blood Urea Nitrogen 14 MG/DL Creatinine 0.93 MG/DL Estimat Glomerular Filtration 110 ML/MIN Rate Random Glucose 98 MG/DL Calcium Level 9.3 MG/DL Total Bilirubin 0.3 MG/DL Aspartate Amino Transf 35 U/L (AST/SGOT) Alanine Aminotransferase 32 U/L (ALT/SGPT) Alkaline Phosphatase 78 U/L Total Protein 7.6 GM/DL Albumin 3.8 GM/DL Salicylates Level 2.0 MG/DL Acetaminophen Level LESS THAN 2.0 MCG/ML Ethyl Alcohol Level LESS THAN 3 MG/DL MDM Medical Decision Making Medical Screen Exam Complete: Yes Emergency Medical Condition: Yes Medical Record Reviewed: Yes Interpretation(s) Laboratory Tests Test 09/21/16 20:13 White Blood Count 7.8 TH/MM3 Red Blood Count 4.52 MIL/MM3 Hemoglobin 13.0 GM/DL Hematocrit 40.1 % Mean Corpuscular Volume 88.7 FL Mean Corpuscular Hemoglobin 28.8 PG Mean Corpuscular Hemoglobin 32.5 % Concent Red Cell Distribution Width 14.0 % Platelet Count 207 TH/MM3 Mean Platelet Volume 10.3 FL Neutrophils (%) (Auto) 56.5 % Lymphocytes (%) (Auto) 27.6 % Monocytes (%) (Auto) 7.9 % Eosinophils (%) (Auto) 7.4 % Basophils (%) (Auto) 0.6 % Neutrophils # (Auto) 4.4 TH/MM3 Lymphocytes # (Auto) 2.2 TH/MM3 Monocytes # (Auto) 0.6 TH/MM3 Eosinophils # (Auto) 0.6 TH/MM3 Basophils # (Auto) 0.0 TH/MM3 CBC Comment DIFF FINAL Differential Comment Urine Color YELLOW Urine Turbidity CLEAR Urine pH 5.5 Urine Specific [place] 1.034 Urine Protein TRACE mg/dL Urine Glucose (UA) NEG mg/dL Urine Ketones 10 mg/dL Urine Occult Blood NEG Urine Nitrite NEG Urine Bilirubin NEG Urine Urobilinogen 2.0 MG/DL Urine Leukocyte Esterase NEG Urine RBC 1 /hpf Urine WBC 1 /hpf Urine Hyaline Casts 1 /lpf Urine Mucus FEW /lpf Microscopic Urinalysis Comment CULT NOT INDICATED Sodium Level 141 MEQ/L Potassium Level 4.0 MEQ/L Chloride Level 106 MEQ/L Carbon Dioxide Level 25.3 MEQ/L Anion Gap 10 MEQ/L Blood Urea Nitrogen 14 MG/DL Creatinine 0.93 MG/DL Estimat Glomerular Filtration 110 ML/MIN Rate Random Glucose 98 MG/DL Calcium Level 9.3 MG/DL Total Bilirubin 0.3 MG/DL Aspartate Amino Transf 35 U/L (AST/SGOT) Alanine Aminotransferase 32 U/L (ALT/SGPT) Alkaline Phosphatase 78 U/L Total Protein 7.6 GM/DL Albumin 3.8 GM/DL Salicylates Level 2.0 MG/DL Acetaminophen Level LESS THAN 2.0 MCG/ML Ethyl Alcohol Level LESS THAN 3 MG/DL Vital Signs Date Time Temp Pulse Resp B/P Pulse Ox O2 Delivery O2 Flow Rate FiO2 09/21/16 17:19 97.9 82 20 128/94 100 Room Air Differential Diagnosis A code cyst versus mood disorder versus substance abuse versus medication noncompliance versus malingering versus schizophrenia versus other Narrative Course Patient's 36-year-old male presenting voluntarily for psychiatric evaluation. Patient's vital signs are stable, he is having suspicious thoughts as well as suicidal ideations. Labs were reviewed and are unremarkable. Patient has been resting comfortably. Patient is medically cleared for psychiatric evaluation at this time. Diagnosis Primary Impression: Medical clearance for psychiatric admission Condition: Stable María Dominguez Sep 21, 2016 20:14
[2016-09-21 20:45] LABS: AUTOMATED NEUTROPHIL # 4.4 TH/MM3 (1.8-7.7); BASOPHIL % 0.6 % (0.0-2.0); EOSINOPHIL # 0.6 TH/MM3 (0-0.4); EOSINOPHIL % 7.4 % (0.0-4.0); HEMATOCRIT 40.1 % (39.0-51.0); HEMO FLAGS DIFF FINAL; LYMPH % 27.6 % (9.0-44.0); LYMPHOCYTE # 2.2 TH/MM3 (1.0-4.8); MEAN CELL VOLUME 88.7 FL (80.0-100.0); MEAN CORPUSCULAR HEMOGLOBIN 28.8 PG (27.0-34.0); MEAN CORPUSCULAR HGB CONC 32.5 % (32.0-36.0); MONO % 7.9 % (0.0-8.0); NEUT % 56.5 % (16.0-70.0); PLATELET COUNT 207 TH/MM3 (150-450); RED BLOOD COUNT 4.52 MIL/MM3 (4.50-5.90); WHITE BLOOD COUNT 7.8 TH/MM3 (4.0-11.0)
[2016-09-21 20:59] LABS: ANION GAP 10 MEQ/L (5-15); AST (GOT) 35 U/L (15-37); BICARBONATE 25.3 MEQ/L (21.0-32.0); BLOOD UREA NITROGEN 14 MG/DL (7-18); CHLORIDE 106 MEQ/L (98-107); GLOMERULAR FILTRATION RATE 110 ML/MIN (>89); SODIUM (NA) 141 MEQ/L (136-145)
[2016-09-21 21:01] LABS: BLOOD, URINE NEG (NEG); COMMENT (UR) CULT NOT INDICATED; CULTURE IF INDICATED CULT NOT INDICATED; GLUCOSE,URINE NEG (NEG); HYALINE CAST, URINE 1 /lpf (RARE); KETONE, URINE 10 mg/dL (NEG); MUCUS URINE FEW /lpf (OCC); NITRITE,URINE NEG (NEG); PH, URINE 5.5 (5.0-8.5); URINE COLOR YELLOW (YELLW/STRAW)
[2016-09-21 21:04] LABS: ACETAMINOPHEN LESS THAN 2.0 MCG/ML (10.0-30.0); ALKALINE PHOSPHATASE 78 U/L (45-117); ALT (GPT) 32 U/L (12-78); TOTAL BILIRUBIN ADULT 0.3 MG/DL (0.2-1.0)
[2016-09-22] VITALS: BP 150/65; PULSE 80; RESP 16; TEMP 98.7; O2SAT 100
[2016-09-22 01:52] LABS: AMPHETAMINE, URINE NEG (NEG); BARBITURATES, URINE NEG (NEG); COCAINE, URINE POS (NEG)
[2016-09-22 07:10] VITALS: BP 145/70; PULSE 78; RESP 16; TEMP 98.7; O2SAT 100
[2016-09-22 11:41] VITALS: BP 142/75; PULSE 75; RESP 16; O2SAT 100
[2016-09-22 15:22] VITALS: BP 134/56; PULSE 80; RESP 18; O2SAT 99
--- NOTE | 2016-09-22 16:03 | PD ---
History of Present Illness Chief Complaint: Psychiatric Symptoms Time Seen by Provider: 16:00 Travel History International Travel<30 Days: No Contact w/Intl Traveler<30days: No Known affected area: No Legal Status Legal Status: Rikki Brandt Act Signed By: History of Present Illness: Patient Rikki acted by this physician for grossly psychotic thinking and behavior as well as agitation and threats. Patient is a poor historian because of his psychosis and agitation and got out of bed to threaten this physician. Repeatedly told this physician that "you are a fake" and he feels that I am trying to harm him. He refused to answer questions and told this physician to leave the room. PFSH Past Medical History Arthritis: No Asthma: No Autoimmune Disease: No Blood Disorders: No Anxiety: Yes Depression: Yes (w/ suicidal ideation) Cancer: No Cardiovascular Problems: Yes (tachycardia) High Cholesterol: No Chest Pain: No Congestive Heart Failure: No COPD: No Cerebrovascular Accident: No Diabetes: No Diminished Hearing: No Endocrine: No GERD: No Glaucoma: No Genitourinary: No Headaches: No Hepatitis: No Hiatal Hernia: No Hypertension: No Immune Disorder: No Musculoskeletal: No Neurologic: No Psychiatric: Yes (psychosis/schizophrenia) Respiratory: No Immunizations Current: No Migraines: No Myocardial Infarction: No Schizophrenia: Yes Seizures: No Sleep Apnea: No Ulcer: No Past Surgical History Abdominal Surgery: No AICD: No Appendectomy: No Cardiac Surgery: No Cholecystectomy: No Ear Surgery: Yes Endocrine Surgery: No Eye Surgery: Yes (left eye orbit) Genitourinary Surgery: No Gynecologic Surgery: No Neurologic Surgery: No Oral Surgery: Yes (facial plate) Pacemaker: No Thoracic Surgery: No Psychiatric History Psychiatric History Hx Psychiatric Treatment: MEDICAL RECORSDS GO Back to 2003 WHERE IT WAS NOTED THAT PATIENT BEGAN HIS VISITS FOR SUBSTANCE ABUSE AND PSYCHOSIS. PATIENT HAS HAD SEVERAL VISITS TO [facility] ED. PATIENT HAS A LONG HISTORY WITH ACT/SMA, History of Inpatient Treatment: Yes Social History Hx Alcohol Use: Yes Hx Tobacco Use: Yes Hx Substance Use: Yes (HX COCAINE, MARIJUANA, K2, DENIES IVDA ) Substance Use Type: Crack, Marijuana Other Substances Used: HX OF CRACK PER RECORDS Hx of Substance Use Treatment: No Allergies-Medications (Allergen,Severity, Reaction): Coded Allergies: Shellfish (Verified Allergy, Severe, EDEMA, HIVES, 09/21/16) Reported Meds & Prescriptions Reported Meds & Active Scripts Active Reported Haloperidol 0.5 Mg Tab 0.25 Mg PO BID Review of Systems ROS Limitations: Clinical Condition, Refused, Psychotic Exam Exam Limitations: Clinical Condition, Refused, Psychotic Alert: Yes [place]: Person Mood: Agitated Affect: Labile Speech: Fast Eye Contact: Indirect Delusions: Yes Delusion Type: Paranoid Insight/Judgement Poor MDM Medical Decision Making Medical Record Reviewed: Yes Assessment/Plan Will bring patient to J pod. Attempt to provide medication to calm him. We will look for appropriate admission. Orders Complete Blood Count With Diff (09/21/16 20:01) Comprehensive Metabolic Panel (09/21/16 20:01) Urinalysis - C+S If Indicated (09/21/16 20:01) Psych Screen (09/21/16 20:01) Drug Screen, Random Urine (09/21/16 20:01) Alcohol (Ethanol) (09/21/16 20:01) Salicylates (Aspirin) (09/21/16 20:01) Tylenol (Acetaminophen) (09/21/16 20:01) Diet Regular Basic (09/22/16 Lunch) Results Vital Signs Date Time Temp Pulse Resp B/P Pulse Ox O2 Delivery O2 Flow Rate FiO2 09/22/16 15:22 80 18 134/56 99 Room Air 09/22/16 11:41 75 16 142/75 100 Room Air 09/22/16 07:10 98.7 78 16 145/70 100 Room Air 09/22/16 00:00 98.7 80 16 150/65 100 Room Air 09/21/16 17:19 97.9 82 20 128/94 100 Room Air Laboratory Tests Test 09/21/16 20:13 White Blood Count 7.8 Red Blood Count 4.52 Hemoglobin 13.0 Hematocrit 40.1 Mean Corpuscular Volume 88.7 Mean Corpuscular Hemoglobin 28.8 Mean Corpuscular Hemoglobin 32.5 Concent Red Cell Distribution Width 14.0 Platelet Count 207 Mean Platelet Volume 10.3 Neutrophils (%) (Auto) 56.5 Lymphocytes (%) (Auto) 27.6 Monocytes (%) (Auto) 7.9 Eosinophils (%) (Auto) 7.4 Basophils (%) (Auto) 0.6 Neutrophils # (Auto) 4.4 Lymphocytes # (Auto) 2.2 Monocytes # (Auto) 0.6 Eosinophils # (Auto) 0.6 Basophils # (Auto) 0.0 CBC Comment DIFF FINAL Differential Comment Urine Color YELLOW Urine Turbidity CLEAR Urine pH 5.5 Urine Specific [place] 1.034 Urine Protein TRACE Urine Glucose (UA) NEG Urine Ketones 10 Urine Occult Blood NEG Urine Nitrite NEG Urine Bilirubin NEG Urine Urobilinogen 2.0 Urine Leukocyte Esterase NEG Urine RBC 1 Urine WBC 1 Urine Hyaline Casts 1 Urine Mucus FEW Microscopic Urinalysis Comment CULT NOT INDICATED Sodium Level 141 Potassium Level 4.0 Chloride Level 106 Carbon Dioxide Level 25.3 Anion Gap 10 Blood Urea Nitrogen 14 Creatinine 0.93 Estimat Glomerular Filtration 110 Rate Random Glucose 98 Calcium Level 9.3 Total Bilirubin 0.3 Aspartate Amino Transf 35 (AST/SGOT) Alanine Aminotransferase 32 (ALT/SGPT) Alkaline Phosphatase 78 Total Protein 7.6 Albumin 3.8 Salicylates Level 2.0 Acetaminophen Level LESS THAN 2.0 Ethyl Alcohol Level LESS THAN 3 Urine Opiates Screen NEG Urine Barbiturates Screen NEG Urine Amphetamines Screen NEG Urine Benzodiazepines Screen NEG Urine Cocaine Screen POS Urine Cannabinoids Screen POS Diagnosis Primary Impression: Brief psychotic disorder Condition: Stable Romeo Alexander MD Sep 22, 2016 16:03
[2016-09-22 22:06] VITALS: RESP 18
[2016-09-23 01:44] VITALS: RESP 19
[2016-09-23 05:41] VITALS: RESP 18
[2016-09-23 09:06] VITALS: BP 134/56; TEMP 98
--- NOTE | 2016-09-23 09:11 | HHI.PYPN ---
Subjective Remarks Patient seen this a.m. with family practice resident Max, patient did recognize me from multiple prior contacts with past 10 years. He is alert oriented intense loud somewhat labile with mild rapid pressured speech. He acknowledges his frequent cocaine use and marijuana use. He denies suicidality homicidality voices or visions. He does acknowledge being essentially homeless though has a low job interview" today. Patient seen by Dr. Alexander yesterday while at the [place] significantly under the influence of these drugs. At that time Dr. Alexander initiated a Brandt act. On my assessment today for patient no longer meets Brandt act criteria. He does wish to be discharged. He is on no psychotropic medications at the present time though the medication reconciliation states she is taking 0.25 mg Haldol twice a day. In the event at the state patient does not be Brandt criteria I will lift the Brandt act patient to be discharged from self, no Rx by me, he may follow-up finished her acted his discretion. Strong recommendation na follow-up Review of Systems Constitutional: DENIES: Diaphoretic episodes, Fatigue, Fever, Weight gain, Weight loss, Chills, Dizziness, Change in appetite, Night Sweats Endocrine: DENIES: Heat/cold intolerance, Polydipsia, Polyuria, Polyphagia Eyes: DENIES: Blurred vision, Diplopia, Eye inflammation, Eye pain, Vision loss , Photosensitivity, Double Vision Ears, nose, mouth, throat: DENIES: Tinnitus, Hearing loss, Vertigo, Nasal discharge, Oral lesions, Throat pain, Hoarseness, Ear Pain, Running Nose, Epistaxis, Sinus Pain, Toothache, Odynophagia Respiratory: DENIES: Apneas, Cough, Snoring, Wheezing, Hemoptysis, Sputum production, Shortness of breath Cardiovascular: DENIES: Chest pain, Palpitations, Syncope, Dyspnea on Exertion , PND, Lower Extremity Edema, Orthopnea, Claudication Gastrointestinal: DENIES: Abdominal pain, Black stools, Bloody stools, Constipation, Diarrhea, Nausea, Vomiting, Difficulty Swallowing, Anorexia Genitourinary: DENIES: Sexual dysfunction, Urinary frequency, Urinary incontinence, Urgency, Hematuria, Dysuria, Nocturia, Penile Discharge, Testicular Pain, Testicular Swelling Musculoskeletal: COMPLAINS OF: Joint pain, Muscle aches, Stiffness, Joint Swelling, Back pain, Neck pain Integumentary: DENIES: Abnormal pigmentation, Nail changes, Pruritus, Rash Hematologic/lymphatic: DENIES: Bruising, Lymphadenopathy Immunologic/allergic: DENIES: Eczema, Urticaria Neurologic: DENIES: Abnormal gait, Headache, Localized weakness, Paresthesias, Seizures, Speech Problems, Tremor, Poor Balance Psychiatric: DENIES: Anxiety, Confusion, Mood changes, Depression, Hallucinations, Agitation, Suicidal Ideation, Homicidal Ideation, Delusions Objective Alert: Yes [place]: Person, Place, Date, Situation Mood: Agitated, Anxious, Calm, Happy Affect: Labile Memory Intact: Comment Hallucinations: Other (fair) Delusions: No Delusion Type: Grandiose (mildly) Suicidal: Ideation (he denies) Homicidal: Ideation (denies,) Insight/Judgment Poor Vitals/IOs Vital Signs Date Time Temp Pulse Resp B/P Pulse Ox O2 Delivery O2 Flow Rate FiO2 09/23/16 05:41 18 Room Air 09/22/16 15:22 80 134/56 99 09/22/16 07:10 98.7 Assessment & Plan Problem List: (1) Substance induced mood disorder ICD Code: F19.94 Assessment & Plan Estimated LOS: days patient does not meet Brandt criteria will lift Brandt act patient to be discharged to himself today no Rx by me strongly referral to NA Justification for Cont. Inpt. Patient to be discharged today Discharge Planning Refer to NA referred to Aravind [place] act voluntary Request HC Surrog/Guard Advoc?: No Landry Bañuelos MD Sep 23, 2016 09:11
== END 2016-09-23 09:15 | disposition home or self-care (01) ==
LOC: NEPD 17:17 → NEPJ 09-23 09:15
DX: F23 Brief psychotic disorder (principal)
CPT/HCPCS: 80053; 80307; 81001; 85025; 99284

== ENCOUNTER 2016-10-21 07:39 | Emergency (ER) | payer OTHER ==
[~2016-10-21] VITALS: Ht 177.8 cm; Wt 80.0 kg
[~2016-10-21 07:39] MED LIST changes: -CELE20TA PO; +HALO0.5T PO
[2016-10-21 07:45] VITALS: BP 134/79; PULSE 83; RESP 14; TEMP 97.1; O2SAT 98
--- NOTE | 2016-10-21 08:04 | PD ---
HPI Chief Complaint: Psychiatric Symptoms Time Seen by Provider: 07:44 Travel History International Travel<30 days: No Contact w/Intl Traveler<30days: No Traveled to known affect area: No History of Present Illness HPI Patient is a 36-year-old man who identifies himself to me as "the end of the world". Patient presents today on Brandt act, according to Brandt act identified himself to power superintendent as "the person who wants to kill themselves". Patient has a history of similar presentations this institution for brief psychotic episodes. He was here in September tested positive for cocaine at that time. Very difficult to get patient history further. He is quite heightened alert level but toxin nonsensical content. PFSH Past Medical History Arthritis: No Asthma: No Autoimmune Disease: No Blood Disorders: No Anxiety: Yes Depression: Yes (w/ suicidal ideation) Cancer: No Cardiovascular Problems: Yes (tachycardia) High Cholesterol: No Chest Pain: No Congestive Heart Failure: No COPD: No Cerebrovascular Accident: No Diabetes: No Diminished Hearing: No Endocrine: No GERD: No Glaucoma: No Genitourinary: No Headaches: No Hepatitis: No Hiatal Hernia: No Hypertension: No Immune Disorder: No Musculoskeletal: No Neurologic: No Psychiatric: Yes (psychosis/schizophrenia) Respiratory: No Immunizations Current: No Migraines: No Myocardial Infarction: No Schizophrenia: Yes Seizures: No Sleep Apnea: No Ulcer: No Tetanus Vaccination: Unknown Past Surgical History Abdominal Surgery: No AICD: No Appendectomy: No Cardiac Surgery: No Cholecystectomy: No Ear Surgery: Yes Endocrine Surgery: No Eye Surgery: Yes (left eye orbit) Genitourinary Surgery: No Gynecologic Surgery: No Neurologic Surgery: No Oral Surgery: Yes (facial plate) Pacemaker: No Thoracic Surgery: No Other Surgery: Yes (plate in face) Social History Alcohol Use: Yes Tobacco Use: Yes Substance Use: Yes (HX COCAINE, MARIJUANA, K2, DENIES IVDA ) Allergies-Medications (Allergen,Severity, Reaction): Coded Allergies: Shellfish (Verified Allergy, Severe, EDEMA, HIVES, 10/21/16) Reported Meds & Prescriptions Reported Meds & Active Scripts Active Reported Haloperidol 0.5 Mg Tab 0.25 Mg PO BID Review of Systems ROS Limitations: Psychotic Physical Exam Narrative GENERAL: Well-developed well-nourished, tall, has a heightened sense of alertness. SKIN: Focused skin assessment warm/dry. HEAD: Atraumatic. Normocephalic. EYES: Pupils equal and round. No scleral icterus. No injection or drainage. ENT: No nasal bleeding or discharge. Mucous membranes pink and moist. NECK: Trachea midline. No JVD. CARDIOVASCULAR: Regular rate and rhythm. No murmur appreciated. RESPIRATORY: No accessory muscle use. Clear to auscultation. Breath sounds equal bilaterally. GASTROINTESTINAL: Abdomen soft, non-tender, nondistended. Hepatic and splenic margins not palpable. MUSCULOSKELETAL: No obvious deformities. No clubbing. No cyanosis. No edema. NEUROLOGICAL: Awake and alert. No obvious cranial nerve deficits. Motor grossly within normal limits. Normal speech. PSYCHIATRIC: Height level of alertness, says things like "sphygmomanometer, Dr. correa a made up word". Data Data Last Documented VS Vital Signs Date Time Temp Pulse Resp B/P Pulse Ox O2 Delivery O2 Flow Rate FiO2 10/21/16 07:45 97.1 83 14 134/79 98 Orders Complete Blood Count With Diff (10/21/16 07:44) Comprehensive Metabolic Panel (10/21/16 07:44) Psych Screen (10/21/16 07:44) Drug Screen, Random Urine (10/21/16 07:44) Alcohol (Ethanol) (10/21/16 07:44) Labs Laboratory Tests Test 10/21/16 07:45 White Blood Count 9.3 TH/MM3 Red Blood Count 4.19 MIL/MM3 Hemoglobin 12.0 GM/DL Hematocrit 37.3 % Mean Corpuscular Volume 89.1 FL Mean Corpuscular Hemoglobin 28.7 PG Mean Corpuscular Hemoglobin 32.2 % Concent Red Cell Distribution Width 15.1 % Platelet Count 187 TH/MM3 Mean Platelet Volume 10.0 FL Neutrophils (%) (Auto) 76.3 % Lymphocytes (%) (Auto) 15.1 % Monocytes (%) (Auto) 6.0 % Eosinophils (%) (Auto) 1.9 % Basophils (%) (Auto) 0.7 % Neutrophils # (Auto) 7.1 TH/MM3 Lymphocytes # (Auto) 1.4 TH/MM3 Monocytes # (Auto) 0.6 TH/MM3 Eosinophils # (Auto) 0.2 TH/MM3 Basophils # (Auto) 0.1 TH/MM3 CBC Comment DIFF FINAL Differential Comment Sodium Level 143 MEQ/L Potassium Level 3.9 MEQ/L Chloride Level 112 MEQ/L Carbon Dioxide Level 25.1 MEQ/L Anion Gap 6 MEQ/L Blood Urea Nitrogen 11 MG/DL Creatinine 0.97 MG/DL Estimat Glomerular Filtration 105 ML/MIN Rate Random Glucose 94 MG/DL Calcium Level 8.9 MG/DL Total Bilirubin 0.3 MG/DL Aspartate Amino Transf 25 U/L (AST/SGOT) Alanine Aminotransferase 25 U/L (ALT/SGPT) Alkaline Phosphatase 70 U/L Total Protein 6.8 GM/DL Albumin 3.5 GM/DL Ethyl Alcohol Level LESS THAN 3 MG/DL MDM Medical Decision Making Medical Screen Exam Complete: Yes Emergency Medical Condition: Yes Differential Diagnosis Psychosis, drug-induced psychosis, for social circumstance, suicidal ideation. Narrative Course Patient's 36-year-old male presents emergency department on Brandt act, initially with heightened sense of alertness, he ultimately fell asleep in the emergency department without pharmacologic intervention, his physical exam is reassuring. Basic lab screening CBC and CMP are also reassuring. Alcohol level negative. UDS is still pending at this time however he is medically cleared for psychiatric evaluation and disposition on Brandt act. Diagnosis Primary Impression: Acute psychosis Condition: Stable Heriberto Coburn MD Oct 21, 2016 08:04
[2016-10-21 08:11] LABS: AUTOMATED NEUTROPHIL # 7.1 TH/MM3 (1.8-7.7); BASOPHIL # 0.1 TH/MM3 (0-0.2); BASOPHIL % 0.7 % (0.0-2.0); EOSINOPHIL # 0.2 TH/MM3 (0-0.4); EOSINOPHIL % 1.9 % (0.0-4.0); HEMATOCRIT 37.3 % (39.0-51.0); HEMO FLAGS DIFF FINAL; LYMPH % 15.1 % (9.0-44.0); LYMPHOCYTE # 1.4 TH/MM3 (1.0-4.8); MEAN CELL VOLUME 89.1 FL (80.0-100.0); MEAN CORPUSCULAR HEMOGLOBIN 28.7 PG (27.0-34.0); MEAN CORPUSCULAR HGB CONC 32.2 % (32.0-36.0); NEUT % 76.3 % (16.0-70.0); PLATELET COUNT 187 TH/MM3 (150-450); RED BLOOD COUNT 4.19 MIL/MM3 (4.50-5.90); RED CELL DISTRIBUTION WIDTH 15.1 % (11.6-17.2); WHITE BLOOD COUNT 9.3 TH/MM3 (4.0-11.0)
[2016-10-21 08:35] LABS: ALT (GPT) 25 U/L (12-78); ANION GAP 6 MEQ/L (5-15); AST (GOT) 25 U/L (15-37); BICARBONATE 25.1 MEQ/L (21.0-32.0); BLOOD UREA NITROGEN 11 MG/DL (7-18); CHLORIDE 112 MEQ/L (98-107); GLOMERULAR FILTRATION RATE 105 ML/MIN (>89); POTASSIUM 3.9 MEQ/L (3.5-5.1); SODIUM (NA) 143 MEQ/L (136-145)
[2016-10-21 08:37] LABS: ALKALINE PHOSPHATASE 70 U/L (45-117); TOTAL BILIRUBIN ADULT 0.3 MG/DL (0.2-1.0)
[2016-10-21 11:29] LABS: AMPHETAMINE, URINE NEG (NEG); BARBITURATES, URINE NEG (NEG); COCAINE, URINE POS (NEG)
[2016-10-21 22:05] VITALS: RESP 18
[2016-10-22 02:30] VITALS: RESP 18
[2016-10-22 06:08] VITALS: RESP 18
--- NOTE | 2016-10-22 09:41 | PD ---
History of Present Illness Chief Complaint: Psychiatric Symptoms Time Seen by Provider: 09:30 Travel History International Travel<30 Days: No Contact w/Intl Traveler<30days: No Known affected area: No Legal Status Legal Status: Brandt Act Brandt Act Signed By: Remberto Real History of Present Illness: History of Present Illness HPI Patient is a 36-year-old AA male with hx of schizophrenia as well as history of substance use disorder who presents to [facility] under a BA initiated by RAULITO. The BA alleges that the patient contacted dispatch and informed them that he was done living and wanted to kill himself. He kept saying that he needed help. When asked his name he stated " person who wants to kill himself". Upon arrival to Ed he was only minimally cooperative. He was monitored in J pod and presented no behavioral concerns and no suicidality. Patient was placed on [facility] list for possible admission. He is well known to [facility] as he has had multiple visits to ED in the past . His toxicology is positive for cocaine as well as cannabinoid. Patient is seen w GHADA Armendariz. He is alert and oriented. When we enter his room he stands up quickly and remains standing. His speech is clear. He tells me that he has " been to [facility] at least 100 times and that he was there yesterday.. He also reports feeling depressed, lonely and feeling like " life is not real". He acknowledges that he has a problem with substances . In terms of hallucinations he states that he hears voices all the time. He verbalizes not feeling safe if he were to be discharged and that he wants treatment. I have offered him the opportunity to begin some medication as well as to keep him in J pod until he can be admitted to [facility] as we have no appropriate bed placement for him here at [facility] and he agrees. He agrees to take Haldol and was medicated. In the meantime we have contacted case management here to assist him in getting his benefits. Patient was maintained in J pod and at approximately 3 pm he requests to speak with me. He is requesting to be discharged as he no longer feels unsafe. He tells me that he has a place to go to in [facility] and is planning on going there. He does not appear to be responding to internal stimuli and voiced no suicidal or homicidal ideation at this time. [facility] Past Medical History Arthritis: No Asthma: No Autoimmune Disease: No Blood Disorders: No Anxiety: Yes Depression: Yes (w/ suicidal ideation) Cancer: No Cardiovascular Problems: Yes (tachycardia) High Cholesterol: No Chest Pain: No Congestive Heart Failure: No COPD: No Cerebrovascular Accident: No Diabetes: No Diminished Hearing: No Endocrine: No GERD: No Glaucoma: No Genitourinary: No Headaches: No Hepatitis: No Hiatal Hernia: No Hypertension: No Immune Disorder: No Musculoskeletal: No Neurologic: No Psychiatric: Yes (psychosis/schizophrenia) Respiratory: No Immunizations Current: No Migraines: No Myocardial Infarction: No Schizophrenia: Yes Seizures: No Sleep Apnea: No Ulcer: No Tetanus Vaccination: Unknown Past Surgical History Abdominal Surgery: No AICD: No Appendectomy: No Cardiac Surgery: No Cholecystectomy: No Ear Surgery: Yes Endocrine Surgery: No Eye Surgery: Yes (left eye orbit) Genitourinary Surgery: No Gynecologic Surgery: No Neurologic Surgery: No Oral Surgery: Yes (facial plate) Pacemaker: No Thoracic Surgery: No Other Surgery: Yes (plate in face) Psychiatric History Psychiatric History Hx Psychiatric Treatment: MEDICAL RECORSDS GO Back to 2003. WHERE IT WAS NOTED THAT PATIENT BEGAN PATIENT HAS HAD SEVERAL VISITS TO [facility] ED. PATIENT HAS A LONG HISTORY WITH ACT/SMA, History of Inpatient Treatment: Yes Guns or firearms in home: No Social History Single male. Unemployed Hx Alcohol Use: Yes Hx Tobacco Use: Yes Hx Substance Use: Yes (HX COCAINE, MARIJUANA, K2, DENIES IVDA ) Substance Use Type: Crack, Marijuana Other Substances Used: HX OF CRACK PER RECORDS Hx of Substance Use Treatment: No Family Psychiatric History Unknown Allergies-Medications (Allergen,Severity, Reaction): Coded Allergies: Shellfish (Verified Allergy, Severe, EDEMA, HIVES, 10/21/16) Reported Meds & Prescriptions Reported Meds & Active Scripts Active Reported Haloperidol 0.5 Mg Tab 0.25 Mg PO BID Review of Systems Except as stated in HPI: all other systems reviewed are Neg Exam Alert: Yes [place]: Person (ox4) Affect: Appropriate Speech: Clear, Logical Eye Contact: Normal Memory Intact: Comment (no impairmetn) Hallucinations: Auditory (reports chronic halluciantions. non command type) Delusions: Yes (suspicioous) Suicidal: Ideation (deneis at present) Homicidal: Ideation (deneis at present) Insight/Judgement poor . Poor. MDM Medical Decision Making Medical Record Reviewed: Yes Assessment/Plan 36 year old male with hx of schizophrenia as well as substance use disorder with drug of choice being cocaine who is under a BA. Patient initially uncooperative . He was monitored in J pod and he requested treatment for his mental illness as well as for his substance abuse. He agreed to remain in J pod until we could secure a placement for him. He agreed to begin treatment and accepted medication. After several hours he requested to be discharged. At the time of his request he does not meet criteria for BA. Ba will be lifted. Recommend follow up at [facility]. Orders Diet Regular Basic (10/21/16 Dinner) Diet Regular Basic (10/22/16 Breakfast) Results Vital Signs Date Time Temp Pulse Resp B/P Pulse Ox O2 Delivery O2 Flow Rate FiO2 10/22/16 06:08 18 10/22/16 02:30 18 10/21/16 22:05 18 Laboratory Tests Test 10/21/16 11:00 Urine Opiates Screen NEG Urine Barbiturates Screen NEG Urine Amphetamines Screen NEG Urine Benzodiazepines Screen NEG Urine Cocaine Screen POS Urine Cannabinoids Screen POS Diagnosis Primary Impression: Schizophrenia Additional Impressions: Substance induced mood disorder Cocaine abuse Psychiatrically Cleared: Yes Disposition: 01 DISCHARGE HOME Condition: Stable Problem Qualifiers Primary Impression: Schizophrenia Qualified Code: F20.3 - Undifferentiated schizophrenia Ursula Santos [facility] Oct 22, 2016 09:41
[2016-10-22] MEDS ORDERED: diphenhydrAMINE HCL 50 MG CAP PO ONE (09:45)
[2016-10-22] MEDS ORDERED: HALOPERIDOL 5 MG TAB PO ONE (09:45)
== END 2016-10-22 16:33 | disposition home or self-care (01) ==
LOC: NEPE 07:39 → NEPJ 10-22 16:33
DX: F20.9 Schizophrenia, unspecified (principal); F39 Unspecified mood [affective] disorder; F14.10 Cocaine abuse, uncomplicated; F41.9 Anxiety disorder, unspecified; F32.9 Major depressive disorder, single episode, unspecified; Z72.0 Tobacco use; Z79.899 Other long term (current) drug therapy
CPT/HCPCS: 80053; 80307; 85025; 99284; Q0163

== ENCOUNTER 2016-11-02 06:35 | Emergency (ER) | payer OTHER ==
[~2016-11-02] VITALS: Ht 177.8 cm; Wt 80.0 kg
[2016-11-02 06:39] VITALS: BP 136/93; PULSE 62; RESP 16; TEMP 97.6; O2SAT 100
--- NOTE | 2016-11-02 08:20 | PD ---
HPI Chief Complaint: Psychiatric Symptoms Time Seen by Provider: 08:00 Travel History International Travel<30 days: No Contact w/Intl Traveler<30days: No Traveled to known affect area: No History of Present Illness HPI 36-year-old male presents emergency Department voluntarily requesting psychiatric evaluation. Patient made several statements to triage nurse and myself stating he "doesn't want to live". His plan is to walk out in front of traffic. He reports previous suicide attempts in the past. He reports he has "nothing to live for". He reports using cocaine last night denies any alcohol or other illicit drug use. Patient reports previous history of mental health illness but is unable to elaborate on specifics. PFSH Past Medical History Arthritis: No Asthma: No Autoimmune Disease: No Blood Disorders: No Anxiety: Yes Depression: Yes (w/ suicidal ideation) Cancer: No Cardiovascular Problems: Yes (tachycardia) High Cholesterol: No Chest Pain: No Congestive Heart Failure: No COPD: No Cerebrovascular Accident: No Diabetes: No Diminished Hearing: No Endocrine: No GERD: No Glaucoma: No Genitourinary: No Headaches: No Hepatitis: No Hiatal Hernia: No Hypertension: No Immune Disorder: No Musculoskeletal: No Neurologic: No Psychiatric: Yes (psychosis/schizophrenia) Respiratory: No Immunizations Current: No Migraines: No Myocardial Infarction: No Schizophrenia: Yes Seizures: No Sleep Apnea: No Ulcer: No Tetanus Vaccination: Unknown Past Surgical History Abdominal Surgery: No AICD: No Appendectomy: No Cardiac Surgery: No Cholecystectomy: No Ear Surgery: Yes Endocrine Surgery: No Eye Surgery: Yes (left eye orbit) Genitourinary Surgery: No Gynecologic Surgery: No Neurologic Surgery: No Oral Surgery: Yes (facial plate) Pacemaker: No Thoracic Surgery: No Other Surgery: Yes (plate in face) Social History Alcohol Use: Yes Tobacco Use: Yes Substance Use: Yes (HX COCAINE, MARIJUANA, K2, DENIES IVDA ) Allergies-Medications (Allergen,Severity, Reaction): Coded Allergies: Shellfish (Verified Allergy, Severe, EDEMA, HIVES, 11/02/16) Reported Meds & Prescriptions Reported Meds & Active Scripts Active Reported Haloperidol 0.5 Mg Tab 0.25 Mg PO BID Review of Systems Except as stated in HPI: all other systems reviewed are Neg Psychiatric: Positive: Suicidal Ideations Physical Exam Narrative GENERAL: Well-nourished, well-developed, disheveled-appearing male SKIN: Focused skin assessment warm/dry. HEAD: Normocephalic. EYES: No scleral icterus. No injection or drainage. NECK: Supple, trachea midline. No JVD or lymphadenopathy. CARDIOVASCULAR: Regular rate and rhythm without murmurs, gallops, or rubs. RESPIRATORY: Breath sounds equal bilaterally. No accessory muscle use. GASTROINTESTINAL: Abdomen soft, non-tender, nondistended. MUSCULOSKELETAL: No cyanosis, or edema. BACK: Nontender without obvious deformity. No CVA tenderness. PSYCHIATRIC: No delusional thought processes. No hallucinations. Reported suicidal ideation. Denies homicidal ideation. Data Data Last Documented VS Vital Signs Date Time Temp Pulse Resp B/P Pulse Ox O2 Delivery O2 Flow Rate FiO2 11/02/16 10:20 74 16 147/72 100 Room Air 11/02/16 06:39 97.6 Orders Complete Blood Count With Diff (11/02/16 08:12) Comprehensive Metabolic Panel (11/02/16 08:12) Psych Screen (11/02/16 08:12) Drug Screen, Random Urine (11/02/16 08:12) Alcohol (Ethanol) (11/02/16 08:12) Salicylates (Aspirin) (11/02/16 08:12) Tylenol (Acetaminophen) (11/02/16 08:12) Labs Laboratory Tests Test 11/02/16 11/02/16 08:37 08:45 White Blood Count 4.5 TH/MM3 Red Blood Count 4.20 MIL/MM3 Hemoglobin 12.5 GM/DL Hematocrit 38.0 % Mean Corpuscular Volume 90.5 FL Mean Corpuscular Hemoglobin 29.7 PG Mean Corpuscular Hemoglobin 32.8 % Concent Red Cell Distribution Width 15.8 % Platelet Count 221 TH/MM3 Mean Platelet Volume 10.3 FL Neutrophils (%) (Auto) 42.9 % Lymphocytes (%) (Auto) 41.3 % Monocytes (%) (Auto) 8.0 % Eosinophils (%) (Auto) 6.4 % Basophils (%) (Auto) 1.4 % Neutrophils # (Auto) 1.9 TH/MM3 Lymphocytes # (Auto) 1.8 TH/MM3 Monocytes # (Auto) 0.4 TH/MM3 Eosinophils # (Auto) 0.3 TH/MM3 Basophils # (Auto) 0.1 TH/MM3 CBC Comment DIFF FINAL Differential Comment Sodium Level 141 MEQ/L Potassium Level 3.8 MEQ/L Chloride Level 109 MEQ/L Carbon Dioxide Level 26.5 MEQ/L Anion Gap 6 MEQ/L Blood Urea Nitrogen 9 MG/DL Creatinine 0.97 MG/DL Estimat Glomerular Filtration 105 ML/MIN Rate Random Glucose 86 MG/DL Calcium Level 8.7 MG/DL Total Bilirubin 0.3 MG/DL Aspartate Amino Transf 19 U/L (AST/SGOT) Alanine Aminotransferase 27 U/L (ALT/SGPT) Alkaline Phosphatase 68 U/L Total Protein 6.4 GM/DL Albumin 3.4 GM/DL Salicylates Level 2.6 MG/DL Acetaminophen Level LESS THAN 2.0 MCG/ML Ethyl Alcohol Level LESS THAN 3 MG/DL Urine Opiates Screen NEG Urine Barbiturates Screen NEG Urine Amphetamines Screen NEG Urine Benzodiazepines Screen NEG Urine Cocaine Screen POS Urine Cannabinoids Screen POS MDM Medical Decision Making Medical Screen Exam Complete: Yes Emergency Medical Condition: Yes Differential Diagnosis Suicidal ideation, polysubstance abuse, substance induced mood disorder, depression, anxiety Narrative Course 36-year-old male voluntarily requesting psychiatric evaluation. Patient made statements to myself in triage nurse that he "doesn't want to live". His plan is to walk out in front of traffic. He reports using cocaine last night. Patient will be medically evaluated and when cleared received psychiatric screening. Patient agrees to this plan. CBC and BMP unremarkable. Urine drug screen positive for cocaine and cannabis. She is medically cleared and pending psych evaluation. Diagnosis Primary Impression: Substance abuse Additional Impression: Suicidal ideations Mindy Hameed Nov 02, 2016 08:20
[2016-11-02 09:17] LABS: AUTOMATED NEUTROPHIL # 1.9 TH/MM3 (1.8-7.7); BASOPHIL # 0.1 TH/MM3 (0-0.2); BASOPHIL % 1.4 % (0.0-2.0); EOSINOPHIL # 0.3 TH/MM3 (0-0.4); EOSINOPHIL % 6.4 % (0.0-4.0); HEMO FLAGS DIFF FINAL; LYMPH % 41.3 % (9.0-44.0); LYMPHOCYTE # 1.8 TH/MM3 (1.0-4.8); MEAN CELL VOLUME 90.5 FL (80.0-100.0); MEAN CORPUSCULAR HEMOGLOBIN 29.7 PG (27.0-34.0); MEAN CORPUSCULAR HGB CONC 32.8 % (32.0-36.0); NEUT % 42.9 % (16.0-70.0); PLATELET COUNT 221 TH/MM3 (150-450); RED CELL DISTRIBUTION WIDTH 15.8 % (11.6-17.2); WHITE BLOOD COUNT 4.5 TH/MM3 (4.0-11.0)
[2016-11-02 09:23] LABS: AMPHETAMINE, URINE NEG (NEG); BARBITURATES, URINE NEG (NEG); COCAINE, URINE POS (NEG)
[2016-11-02 09:41] LABS: ANION GAP 6 MEQ/L (5-15); AST (GOT) 19 U/L (15-37); BICARBONATE 26.5 MEQ/L (21.0-32.0); BLOOD UREA NITROGEN 9 MG/DL (7-18); CHLORIDE 109 MEQ/L (98-107); GLOMERULAR FILTRATION RATE 105 ML/MIN (>89); POTASSIUM 3.8 MEQ/L (3.5-5.1); SODIUM (NA) 141 MEQ/L (136-145)
[2016-11-02 09:44] LABS: ACETAMINOPHEN LESS THAN 2.0 MCG/ML (10.0-30.0); ALKALINE PHOSPHATASE 68 U/L (45-117); ALT (GPT) 27 U/L (12-78); TOTAL BILIRUBIN ADULT 0.3 MG/DL (0.2-1.0)
[2016-11-02 10:20] VITALS: BP 147/72; PULSE 74; RESP 16; O2SAT 100
[2016-11-02 22:14] VITALS: RESP 18
[2016-11-03 02:21] VITALS: RESP 18
[2016-11-03 06:28] VITALS: RESP 18
== END 2016-11-03 07:40 | disposition home or self-care (01) ==
LOC: NEPD 06:35 → NEPJ 11-03 07:40
DX: R45.851 Suicidal ideations (principal); F19.10 Other psychoactive substance abuse, uncomplicated; F20.9 Schizophrenia, unspecified; F41.9 Anxiety disorder, unspecified; Z72.0 Tobacco use; Z79.899 Other long term (current) drug therapy
CPT/HCPCS: 80053; 80307; 85025; 99284

== ENCOUNTER 2016-11-16 21:46 | Emergency (ER) | payer SELFPAY ==
[~2016-11-16] VITALS: Ht 175.3 cm; Wt 75.0 kg
[2016-11-16 21:47] VITALS: BP 153/80; PULSE 78; RESP 16; TEMP 97.5; O2SAT 98
--- NOTE | 2016-11-16 22:31 | PD ---
Physical Exam Date Seen by Provider: Nov 16, 2016 Time Seen by Provider: 22:27 Narrative 36 y/o male here requests Psychiatric Evaluation. States he is having but Visual and Auditory hallutionations. Denies Suicidal Ideations or specific plan. Patient has been off his meds for an unknown amount of time. Denies Medical problem or Pain. Vital signs reviewed. Patient stable. Awaiting Bed placement. Data Data Last Documented VS Vital Signs Date Time Temp Pulse Resp B/P Pulse Ox O2 Delivery O2 Flow Rate FiO2 11/16/16 21:47 97.5 78 16 153/80 98 Room Air [facility] Medical Record Reviewed: Yes Supervised Visit with JEAN: Yes Condition: Stable Kevin Kelley Nov 16, 2016 22:31
[2016-11-17 05:26] VITALS: BP 134/86; PULSE 86; RESP 18; TEMP 98; O2SAT 100
[2016-11-17 06:54] LABS: AMPHETAMINE, URINE NEG (NEG); BARBITURATES, URINE NEG (NEG); COCAINE, URINE POS (NEG)
[2016-11-17 09:20] VITALS: BP 127/59; PULSE 99; RESP 14; O2SAT 100
[2016-11-17 12:28] VITALS: BP 123/71; PULSE 82; RESP 14; O2SAT 100
--- NOTE | 2016-11-17 15:14 | PD ---
History of Present Illness Chief Complaint: Psychiatric Symptoms Time Seen by Provider: 15:00 Travel History International Travel<30 Days: No Contact w/Intl Traveler<30days: No Known affected area: No Legal Status Legal Status: Voluntary History of Present Illness: 36-year-old male who has been admitted and evaluated in the emergency department on multiple occasions and is well known to the staff and this physician at [facility]. He currently has vague complaints of auditory and visual hallucinations. He is denying suicidal or homicidal ideation, plan or intent. He is uncertain why Cristina is here but states he needs to have his medications changed. Patient admitted by this physician within the last 2 months, due to reported psychotic symptoms but discharged shortly thereafter by Dr. Bañuelos as the patient denied suicidal and homicidal ideation. Patient is also well known to use drugs and alcohol and is oftentimes homeless. He is positive for cocaine and cannabinoids today. PFSH Past Medical History Arthritis: No Asthma: No Autoimmune Disease: No Blood Disorders: No Anxiety: Yes Depression: Yes (w/ suicidal ideation) Cancer: No Cardiovascular Problems: Yes (tachycardia) High Cholesterol: No Chest Pain: No Congestive Heart Failure: No COPD: No Cerebrovascular Accident: No Diabetes: No Diminished Hearing: No Endocrine: No GERD: No Glaucoma: No Genitourinary: No Headaches: No Hepatitis: No Hiatal Hernia: No Hypertension: No Immune Disorder: No Musculoskeletal: No Neurologic: No Psychiatric: Yes (psychosis/schizophrenia) Respiratory: No Immunizations Current: No Migraines: No Myocardial Infarction: No Schizophrenia: Yes Seizures: No Sleep Apnea: No Ulcer: No Tetanus Vaccination: Unknown Influenza Vaccination: No Past Surgical History Abdominal Surgery: No AICD: No Appendectomy: No Cardiac Surgery: No Cholecystectomy: No Ear Surgery: Yes Endocrine Surgery: No Eye Surgery: Yes (left eye orbit) Genitourinary Surgery: No Gynecologic Surgery: No Neurologic Surgery: No Oral Surgery: Yes (facial plate) Pacemaker: No Thoracic Surgery: No Other Surgery: Yes (plate in face) Psychiatric History Psychiatric History Hx Psychiatric Treatment: MEDICAL RECORSDS GO Back to 2003. WHERE IT WAS NOTED THAT PATIENT BEGAN PATIENT HAS HAD SEVERAL VISITS TO [facility] ED. PATIENT HAS A LONG HISTORY WITH ACT/SMA, History of Inpatient Treatment: Yes Guns or firearms in home: No Social History Hx Alcohol Use: Yes Hx Tobacco Use: Yes Hx Substance Use: Yes (HX COCAINE, MARIJUANA, K2, DENIES IVDA ) Substance Use Type: Crack, Marijuana Other Substances Used: HX OF CRACK PER RECORDS Hx of Substance Use Treatment: No Allergies-Medications (Allergen,Severity, Reaction): Coded Allergies: Shellfish (Verified Allergy, Severe, EDEMA, HIVES, 11/16/16) Reported Meds & Prescriptions Reported Meds & Active Scripts Active No Active Prescriptions or Reported Medications Review of Systems Except as stated in HPI: all other systems reviewed are Neg Exam Alert: Yes Webster: Person, Place, Date, Situation Mood: Calm Affect: Appropriate Speech: Clear Eye Contact: Normal Memory Intact: Immediate, Recent, Remote Insight/Judgement Adequate [facility] Medical Decision Making Medical Record Reviewed: Yes Assessment/Plan Medical records reviewed and case discussed with nurse. Patient has long history of multiple hospitalizations and emergency department visits. He continues to use cocaine and marijuana. Although he states that he is experiencing hallucinations, this physician does not find clinically significant objective evidence of psychosis. Patient is known to be manipulative but is currently stating he does not want admission. He vehemently denies suicidal or homicidal ideation. He may in fact be drug seeking. This physician does not feel he meets criteria for Brandt act or inpatient psychiatric hospitalization. He is referred to [facility] for outpatient follow up. Orders Psych Screen (11/17/16 05:58) Drug Screen, Random Urine (11/17/16 05:58) Alcohol (Ethanol) (11/17/16 05:58) Diet Heart Healthy (11/17/16 Lunch) Results Vital Signs Date Time Temp Pulse Resp B/P Pulse Ox O2 Delivery O2 Flow Rate FiO2 11/17/16 12:28 82 14 123/71 100 Room Air 11/17/16 09:20 99 14 127/59 100 Room Air 11/17/16 05:26 98.0 86 18 134/86 100 11/16/16 21:47 97.5 78 16 153/80 98 Room Air Laboratory Tests Test 11/17/16 06:00 Urine Opiates Screen NEG Urine Barbiturates Screen NEG Urine Amphetamines Screen NEG Urine Benzodiazepines Screen NEG Urine Cocaine Screen POS Urine Cannabinoids Screen POS Ethyl Alcohol Level LESS THAN 3 Diagnosis Primary Impression: Adjustment disorder with mixed disturbance of emotions and conduct Additional Impression: Cocaine abuse Prescriptions No Active Prescriptions or Reported Meds Condition: Stable Problem Qualifiers Romeo Alexander MD Nov 17, 2016 15:14
== END 2016-11-17 16:39 | disposition home or self-care (01) ==
LOC: NEPD 21:46
DX: F43.20 Adjustment disorder, unspecified (principal); F41.9 Anxiety disorder, unspecified; F14.10 Cocaine abuse, uncomplicated; F12.10 Cannabis abuse, uncomplicated; F10.10 Alcohol abuse, uncomplicated; F17.290 Nicotine dependence, other tobacco product, uncomplicated
CPT/HCPCS: 80307; 99284

== ENCOUNTER 2016-11-21 00:45 | Inpatient (IN) | payer OTHER ==
[2016-11-21 01:05] VITALS: BP 142/73; PULSE 73; RESP 16; TEMP 98; O2SAT 97
--- NOTE | 2016-11-21 01:08 | PD ---
HPI Chief Complaint: Brandt act Time Seen by Provider: 01:03 Travel History International Travel<30 days: No Contact w/Intl Traveler<30days: No Traveled to known affect area: No History of Present Illness HPI 36-year-old black male well-known to the ER staff for multiple ER visits for psychiatric clearance. The patient returns again today under Brandt act. He contacted police notifying them he was feeling suicidal. He had threatened to walk out of traffic. The patient has a known history of substance abuse. He has no medical complaints. He is a very vague and poor historian. He is typically noncompliant. Patient denies any toxic ingestions. No homicidal ideation. PFSH Past Medical History Arthritis: No Asthma: No Autoimmune Disease: No Blood Disorders: No Anxiety: Yes Depression: Yes (w/ suicidal ideation) Cancer: No Cardiovascular Problems: Yes (tachycardia) High Cholesterol: No Chest Pain: No Congestive Heart Failure: No COPD: No Cerebrovascular Accident: No Diabetes: No Diminished Hearing: No Endocrine: No GERD: No Glaucoma: No Genitourinary: No Headaches: No Hepatitis: No Hiatal Hernia: No Hypertension: No Immune Disorder: No Musculoskeletal: No Neurologic: No Psychiatric: Yes (psychosis/schizophrenia) Respiratory: No Immunizations Current: No Migraines: No Myocardial Infarction: No Schizophrenia: Yes Seizures: No Sleep Apnea: No Ulcer: No Tetanus Vaccination: < 5 Years Past Surgical History Abdominal Surgery: No AICD: No Appendectomy: No Cardiac Surgery: No Cholecystectomy: No Ear Surgery: Yes Endocrine Surgery: No Eye Surgery: Yes (left eye orbit) Genitourinary Surgery: No Gynecologic Surgery: No Neurologic Surgery: No Oral Surgery: Yes (facial plate) Pacemaker: No Thoracic Surgery: No Other Surgery: Yes (plate in face) Social History Alcohol Use: Yes Tobacco Use: Yes Substance Use: Yes (HX COCAINE, MARIJUANA, K2, DENIES IVDA ) Allergies-Medications (Allergen,Severity, Reaction): Coded Allergies: Shellfish (Verified Allergy, Severe, EDEMA, HIVES, 11/16/16) Reported Meds & Prescriptions Reported Meds & Active Scripts Active No Active Prescriptions or Reported Medications Review of Systems ROS Limitations: Poor Historian Except as stated in HPI: all other systems reviewed are Neg Psychiatric: Positive: Depression, Suicidal Ideations, Disorder of Thought, Mood Disorder, Substance Abuse, No: Anxiety, Homicidal Ideation Physical Exam Narrative GENERAL: Well-nourished, well-developed patient. SKIN: Warm and dry. HEAD: Normocephalic and atraumatic. EYES: No scleral icterus. No injection or drainage. ENT: No nasal drainage noted. Mucous membranes pink. Airway patent. NECK: Supple, trachea midline. Moves head freely without obvious discomfort. CARDIOVASCULAR: Regular rate and rhythm without murmurs, gallops, or rubs. RESPIRATORY: Breath sounds equal bilaterally. No accessory muscle use. GASTROINTESTINAL: Abdomen soft, non-tender, nondistended. EXTREMITIES: No cyanosis or edema. BACK: Nontender without obvious deformity. No CVA tenderness. NEURO: Patient is alert and oriented. no sensorimotor deficits. Nonfocal. Normal speech. PSYCH: Patient is guarded. He is paranoid. Poor insight and judgment. Data Data Orders Psych Screen (11/21/16 01:01) Drug Screen, Random Urine (11/21/16 01:01) MDM Medical Decision Making Medical Screen Exam Complete: Yes Emergency Medical Condition: Yes Medical Record Reviewed: Yes Differential Diagnosis MDM: High Differential diagnoses: Schizophrenia, schizoaffective disorder, bipolar, anxiety, depression, adjustment reaction, mood disorder NOS, ODD, depressive disorder NOS, dementia, dementia with agitation, psychosis NOS, substance induced mood disorder, intermittent explosive disorder, Asperger syndrome, infection,electrolyte abnormality, malingering. Narrative Course Mental health screening discussed with the patient. Psychiatric screen ordered. The patient's been medically cleared. This is medical clearance for psychiatric admission, schizophrenia, substance abuse Diagnosis Primary Impression: Medical clearance for psychiatric admission Additional Impressions: Schizophrenia Qualified Code: F20.9 - Schizophrenia, unspecified type Substance use disorder Scripts No Active Prescriptions or Reported Meds Condition: Mal Melendez Nov 21, 2016 01:08
[2016-11-21 02:09] LABS: AMPHETAMINE, URINE NEG (NEG); BARBITURATES, URINE NEG (NEG); COCAINE, URINE POS (NEG)
[2016-11-21] MEDS ORDERED: LORazepam 0.5 MG TAB PO PRN (09:15)
[2016-11-21] MEDS ORDERED: MAGNESIUM HYDROXIDE SUSP 30 ML CUP PO PRN (09:15)
[2016-11-21] MEDS ORDERED: LORazepam 2 MG/ML VIAL IM PRN ×2 (09:15)
[2016-11-21] MEDS ORDERED: ACETAMINOPHEN 325 MG TAB PO PRN (09:15)
[2016-11-21] MEDS ORDERED: ALUMINUM/MAGNESIUM/SIMETH 30 ML CUP PO PRN (09:15)
[2016-11-21] MEDS ORDERED: LORazepam 1 MG TAB PO PRN (09:15)
--- NOTE | 2016-11-21 09:19 | HHI.HP ---
Provisional Diagnosis Admission Date [place] I. Unspecified psychosis, cocaine use disorder and cannabis [place] II. Unspecified personality disorder, rule out antisocial [place] III. No significant medical history Certification of Person's Competence To Provide Express and Informed Consent I have personally examined Jonathan Robles , a person being served at [facility] on, Nov 21, 2016 09:07. Express and informed consent means consent voluntarily given in writing, by a competent person, after sufficient explanation and disclosure of the subject matter involved to enable the person to make a knowing and willful decision without any element of force, fraud, deceit, duress, or other form of constraint or coercion. This person is 18 years of age or older, is not now known to be incompetent to consent to treatment with a guardian advocate, and does not have a health care surrogate or proxy currently making medical treatment decisions. I have found this person to be one of the following: [] Competent to provide express and informed consent, as defined above, for voluntary admission to this facility and is competent to provide express and informed consent for treatment. He/she has the consistent capacity to make well reasoned, willful, and knowing decisions concerning his or her medical or mental health treatment. The person fully and consistently understands the purpose of the admission for examination/placement and is fully capable of personally exercising all rights [place] Incompetent to provide express and informed consent to voluntary admission, and this is incompetent to provide express and informed consent to treatment. The person must be transferred to involuntary status and a petition for a guardian advocate filed with the Circuit Court. [X] Refusing to provide express and informed consent to voluntary admission but is competent to provide express and informed consent for treatment. The person must be discharged or transferred to involuntary status. Form shall be completed within 24 hours of a person's arrival at the receiving facility and filed in the clinical record of each person: 1. Admitted on a voluntary basis 2. Permitted to provide express and informed consent to his/her own treatment 3. Allowed to transfer from involuntary to voluntary status 4. Prior to permitting a person to consent to his or her own treatment after having been previously found incompetent to consent to treatment. History of Present Illness Capacity: Has Capacity HPI Patient is a 36-year-old man, homeless, unemployed, male well- known to the ER staff for multiple ER visits for psychiatric services, with psychiatric history of psychosis, cocaine and cannabis use disorder, multiple psychiatric hospitalizations, history of antisocial behavior, noncompliant on medications, noncompliant with psychiatric recommendations The patient returns again today under Brandt act. He contacted police notifying them he was feeling suicidal. He had threatened to walk out of traffic. When an initial psychiatric evaluation today patient was endorsing suicidal ideation, without a specific plan. He was kind of disorganized, maybe is still under the influence of cocaine, a little bit paranoid and guarded. I confronted his frequent suicidal ideation and he reluctance to follow recommendation, to take medication and his continues drugs use. Patient accepted to be discharged, stating that he will come back. Minutes later I was called by the nurse because the patient took the tube of the IV and wrapped around his neck stating that he will kill himself. Patient was Brandt acted. He refused to talk after his suicidal gesture. Review of Systems Constitutional: DENIES: Diaphoretic episodes, Fatigue, Fever, Weight gain, Weight loss, Chills, Dizziness, Change in appetite, Night Sweats Endocrine: DENIES: Heat/cold intolerance, Polydipsia, Polyuria, Polyphagia Eyes: DENIES: Blurred vision, Diplopia, Eye inflammation, Eye pain, Vision loss , Photosensitivity, Double Vision Ears, nose, mouth, throat: DENIES: Tinnitus, Hearing loss, Vertigo, Nasal discharge, Oral lesions, Throat pain, Hoarseness, Ear Pain, Running Nose, Epistaxis, Sinus Pain, Toothache, Odynophagia Respiratory: DENIES: Apneas, Cough, Snoring, Wheezing, Hemoptysis, Sputum production, Shortness of breath Cardiovascular: DENIES: Chest pain, Palpitations, Syncope, Dyspnea on Exertion , PND, Lower Extremity Edema, Orthopnea, Claudication Gastrointestinal: DENIES: Abdominal pain, Black stools, Bloody stools, Constipation, Diarrhea, Nausea, Vomiting, Difficulty Swallowing, Anorexia Musculoskeletal: DENIES: Joint pain, Muscle aches, Stiffness, Joint Swelling, Back pain, Neck pain Integumentary: DENIES: Abnormal pigmentation, Nail changes, Pruritus, Rash Hematologic/lymphatic: DENIES: Bruising, Lymphadenopathy Immunologic/allergic: DENIES: Eczema, Urticaria Neurologic: DENIES: Abnormal gait, Headache, Localized weakness, Paresthesias, Seizures, Speech Problems, Tremor, Poor Balance Psychiatric: DENIES: Anxiety, Confusion, Mood changes, Depression, Hallucinations, Agitation, Suicidal Ideation, Homicidal Ideation, Delusions Past Psych History Violence risk - self (6 mos) elevated risk at this moment Substance Abuse History Drugs/Alcohol past 12 months Patient is a frequent user of cocaine and marijuana Past Family Social History Coded Allergies: Shellfish (Verified Allergy, Severe, EDEMA, HIVES, 11/21/16) Discontinued Reported Medications Haloperidol 0.5 Mg Tab0.25 Mg PO BID Ref 0 09/21/16 Family History Denies family psychiatric history Social History Patient was born and raised in [place], he is homeless, unemployed, single Patient's Strengths (min. 2) Verbal communication Physical Exam Vital Signs Vital Signs Date Time Temp Pulse Resp B/P Pulse Ox O2 Delivery O2 Flow Rate FiO2 11/21/16 01:05 98.0 73 16 142/73 97 Lab Results Psychology positive for cocaine and cannabis Mental Status Examination Appearance man, malodorous, poor hygiene, non-cooperative, guarded Speech: Hesitant Orientation: Person, Place, Time Memory: Unremarkable Thought Process: Goal Directed, Linear Thought Content: Paranoid Hallucination Type: None Attention and Concentration: Good Previous Suicide Attempts: Yes Homicidal Ideation: No Previous Homicide Attempts: No Judgment: Poor Affect: Irritable, Oppositional Mood: Angry Motor Activity: Normal gait Assessment & Plan Problem List: (1) Schizophrenia Assessment & Plan: On psychiatric evaluation today patient seems to be disorganized, paranoid, reluctant to talk, stating that he wants to , he has made a suicidal gesture in the ER by wrapping a cord in his neck and tried to commit suicide. Patient has a long history of noncompliant with medications, noncompliance with psychiatric recommendations. Suicidal gesture could have an underlying manipulative and antisocial behavior component, but the patient could potentially be a danger to himself and needs psychiatric hospitalization for monitoring mood and behavior, stabilization and safety. We'll start Seroquel 50 mg twice a day. We'll consult psychiatric for second opinion. Haldol 5 mg IM every 8 hours when necessary aggressive behavior and agitation. barrow worker helper intervention for psychosocial assessment, safety discharge planning. ICD Code: F20.9 Assessment & Plan Estimated LOS: days Problem Qualifiers (1) Schizophrenia: Qualified Code: F20.9 - Schizophrenia, unspecified type Thomas Garcia MD Nov 21, 2016 09:19
[2016-11-21] MEDS: NICOTINE 21 MG/24 HR PATCH T-DERMAL SCH (10:00)
[2016-11-21 13:14] VITALS: BP 136/75; PULSE 72; RESP 18
[2016-11-21] MEDS: REMOVE OLD NICODERM (NICOTINE) PATCH T-DERMAL SCH (20:30)
[2016-11-22] MEDS: NICOTINE 21 MG/24 HR PATCH T-DERMAL SCH (08:57)
--- NOTE | 2016-11-22 12:04 | PD.PSY.CON ---
Provisional Diagnosis Admission Date Nov 21, 2016 at 09:03 [place] I. Unspecified psychosis, cocaine use disorder and cannabis [place] II. Unspecified personality disorder, rule out antisocial [place] III. No significant medical history History of Present Illness Service Psychiatry Consult Requested By Psychiatry Reason for Consult 2nd opinion Primary Care Physician No Primary Care Physician HPI Pt seen and discussed with staff. Chart reviewed. He has refused all treatments and care. He has been coming out of room and staring at staff and behaving in a bizarre manner. He appears to be responding to internal stimuli. He is selectively mute in interview and refuses to engage with MD or provide any history. Per chart, pt was admitted under a BA due contacting police and telling them he was suicidal. He was noted to be disorganized and paranoid in ED and wrapped IV tube around his neck and stated that he would kill himself. He has a history of psychosis and substance use disorder (cocaine and cannabis positive on admission). Past Family Social History Coded Allergies: Shellfish (Verified Allergy, Severe, EDEMA, HIVES, 11/21/16) Past Medical History hx of frequent psychiatric hospitalizations. history of non compliance Discontinued Reported Medications Haloperidol 0.5 Mg Tab0.25 Mg PO BID Ref 0 09/21/16 Current Medications Medications (Trade) Dose Ordered Sig/Miguel Route Start Time Stop Time Status Last Admin (Ativan) 1 mg Q6H PRN PO 11/21/16 09:15 (Ativan Inj) 1 mg Q6H PRN IM 11/21/16 09:15 (Tylenol) 650 mg Q4H PRN PO 11/21/16 09:15 (Milk Of Magnesia Liq) 30 ml DAILY PRN PO 11/21/16 09:15 (Mag-Al Plus Susp Liq) 30 ml Q6H PRN PO 11/21/16 09:15 (Habitrol 21 Mg Patch.24 Hr) 1 patch DAILY T-DERMAL 11/21/16 10:00 Miscellaneous Information 1 HS T-DERMAL 11/21/16 21:00 Family History pt will not provide, no family psychiatric hx per chart Social History per chart pt is homeless, lives in [facility] and unemployed Patient's Strengths (min. 2) in monitored setting, knows how access care Physical Exam Vital Signs Vital Signs Date Time Temp Pulse Resp B/P Pulse Ox O2 Delivery O2 Flow Rate FiO2 11/21/16 13:14 72 18 136/75 11/21/16 01:05 98.0 97 Mental Status Examination Appearance disheveled Speech: Other (selectively mute) Orientation: Person, Place, Time Memory: Unremarkable Thought Process: Other (some disorganization) Thought Content: Paranoid Hallucination Type: Auditory (appears to be responding to internal stimuli) Attention and Concentration: Good Suicidal Ideation: Yes Previous Suicide Attempts: Yes Homicidal Ideation: No Previous Homicide Attempts: No Judgment: Poor Affect: Irritable, Oppositional Mood: Irritable Motor Activity: Normal gait Assessment & Plan Problem List: (1) Schizophrenia ICD Code: F20.9 Assessment & Plan I agree that pt meets BA criteria. Paperwork completed Estimated LOS: days Problem Qualifiers (1) Schizophrenia: Qualified Code: F20.9 - Schizophrenia, unspecified type Ana Lin MD Nov 22, 2016 12:04
[2016-11-22 15:38] VITALS: BP 128/70; PULSE 94; RESP 16; TEMP 98.3; O2SAT 97
[2016-11-22] MEDS: REMOVE OLD NICODERM (NICOTINE) PATCH T-DERMAL SCH (20:57)
[2016-11-23] MEDS: NICOTINE 21 MG/24 HR PATCH T-DERMAL SCH (09:00)
[2016-11-23] MEDS: REMOVE OLD NICODERM (NICOTINE) PATCH T-DERMAL SCH (20:44)
[2016-11-24] MEDS: NICOTINE 21 MG/24 HR PATCH T-DERMAL SCH (09:00)
--- NOTE | 2016-11-24 13:59 | HHI.PYPN ---
Subjective Remarks Is positive for psychiatric reevaluation, patient is oppositional, resistant, he refused to talk to me. In spite of multiple redirections, patient reminds quite unguarded. However, he looks suspicious and paranoid and also internally preoccupied. As per nurse report, last night patient was talking to himself, and he was saying that the television was sending him special messages. At times agitated and disruptive, but sensitive to verbal de-escalation techniques. Review of Systems ROS Limitations: Uncooperative, Refused Objective Alert: Yes [place]: Person Mood: Angry Affect: Flat Memory Intact: Comment (not able to be assessed) Hallucinations: Other (not able to assessed ) Delusions: No Delusion Type: Paranoid Suicidal: Ideation (no SI) Homicidal: Ideation (no HI) Insight/Judgment Poor Vitals/IOs Vital Signs Date Time Temp Pulse Resp B/P Pulse Ox O2 Delivery O2 Flow Rate FiO2 11/22/16 15:38 98.3 94 16 128/70 97 Assessment & Plan Problem List: (1) Schizophrenia Assessment & Plan: On psychiatric evaluation patient is acutely psychotic, suspicious, paranoid, internally preoccupied. He also has reportedly delusions of reference. We'll start Haldol 5 mg twice a day for psychosis, benztropine 1 mg twice a day for EPS. ICD Code: F20.9 Assessment & Plan Estimated LOS: days Justification for Cont. Inpt. Patient is acutely psychotic and is to continue psychiatric hospitalization for stabilization. Problem Qualifiers (1) Schizophrenia: Qualified Code: F20.9 - Schizophrenia, unspecified type Thomas Garcia MD Nov 24, 2016 13:59
[2016-11-24] MEDS: REMOVE OLD NICODERM (NICOTINE) PATCH T-DERMAL SCH (20:39)
[2016-11-24] MEDS ORDERED: BENZTROPINE MESYLATE 2 MG/2 ML VIAL IM SCH (21:00)
[2016-11-24] MEDS ORDERED: HALOPERIDOL 5 MG TAB PO SCH (21:00)
[2016-11-25] MEDS: NICOTINE 21 MG/24 HR PATCH T-DERMAL SCH (08:31)
[2016-11-25] MEDS ORDERED: HALO5TAB PO (10:39)
--- NOTE | 2016-11-25 13:48 | HHI.DS ---
Psychiatry Discharge Summary Inpatient Psychiatric care?: Yes Advance Directive: No Reason Not Provided: Patient refuses advance directives Mental Health AdvanceDirective: No Health Care Proxy: No Admission Admission Date Nov 21, 2016 at 09:03 Admission Diagnosis: (1) Schizophrenia ICD Code: F20.9 Brief History Pt seen and discussed with staff. Chart reviewed. He has refused all treatments and care. He has been coming out of room and staring at staff and behaving in a bizarre manner. He appears to be responding to internal stimuli. He is selectively mute in interview and refuses to engage with MD or provide any history. Per chart, pt was admitted under a BA due contacting police and telling them he was suicidal. He was noted to be disorganized and paranoid in ED and wrapped IV tube around his neck and stated that he would kill himself. He has a history of psychosis and substance use disorder (cocaine and cannabis positive on admission). Tobacco Use In Past 30 Days: Refused To Answer Alcohol Use: 2-3 Times Per Week Hospital Course Patient was admitted in the 2700 units on the ER under Brandt act due to a suicidal gesture in the ER. Patient was initially seen in the ER and Brandt act was lifted. However, patient refused to leave the ER, took a court, wrapped around his neck stating that he wanted to kill himself. He was then briefly Brandt acted. During his brief stay in the psychiatric unit patient was mostly sleeping, interacting very poorly with staff and other peers, not taking medications, but eating on time and demanding. Today patient states that he doesn't want to , he wanted to rest for a couple days he was ready to be discharged. Results Blood Pressure 128 / 70 Vital Signs Date Time Temp Pulse Resp B/P Pulse Ox O2 Delivery O2 Flow Rate FiO2 11/22/16 15:38 98.3 94 16 128/70 97 Reviewed Summary of Procedures No procedures done Pending results at discharge: No Medications # of Antipsychotic meds at D/C: 1 Approp Antipsych med options 1 - Minimum of three failed multiple trials of monotherapy. 2 - Documented plan to taper to monotherapy due to previous use of multiple meds OR cross-taper in progress at D/C. 3 - Documentation of augmentation of Clozapine. 4 - Justification other than those listed in allowable values 1-3, document here : Discharge Discharge Date: Nov 25, 2016 Discharge Diagnosis: (1) Schizophrenia Diagnosis: Principal ICD Code: F20.9 Mental Status Exam at Disch man, malodorous, poor hygiene, disheveled, superficially cooperative, guarded, speech is reticent, her mood is "fine", affect is irritable, thought process is goal-directed, at times disorganized, thought content is devoid of suicidal and homicidal ideation, visual and auditory hallucinations. No paranoia, no delusions present at this moment. Insight, impulse control and judgment are fair. His cognition seems to be intact. Pt Condition on Discharge: Stable Discharge Disposition: Discharge Home Discharge Instructions Diet Instructions: As Tolerated, No Restrictions Activities you can perform: Regular-No Restrictions Scheduled Appointment: Aravind Pinedo Appointment Date: Nov 26, 2016 Appointment Time: 7:30 am Discharge Time > 30 minutes Discharge/Advance Care Plan Health Problems: (1) Schizophrenia Goals to promote your health * To prevent worsening of your condition and complications * To maintain your health at the optimal level Directions to meet your goals Take your medications as prescribed Follow your dietary instruction Follow activity as directed Keep your appointments as scheduled Take your immunizations and boosters as scheduled If your symptoms worsen call your PCP, if no PCP go to Urgent Care Center or Emergency Room For 02/11 questions related to your inpatient stay or results of tests pending at discharge, please contact Dr. Thomas Garcia at Smoking is Dangerous to Your Health. Avoid second hand smoking Problem Qualifiers (1) Schizophrenia: Qualified Code: F20.9 - Schizophrenia, unspecified type Thomas Garcia MD Nov 25, 2016 13:48
== END 2016-11-25 12:05 | disposition home or self-care (01) | DRG 885 ==
LOC: NEPD 00:45 → NEDA 09:03 → H270 09:30
PROVIDERS: ADMIT Psychiatry & Neurology Psychiatry; ATTEND Psychiatry & Neurology Psychiatry
DX: F20.9 Schizophrenia, unspecified (principal); R45.851 Suicidal ideations; Z91.14 Patient's other noncompliance with medication regimen; Z91.19 Patient's noncompliance with other medical treatment and regimen; Z59.0 Homelessness; Z72.0 Tobacco use; F14.90 Cocaine use, unspecified, uncomplicated; F12.90 Cannabis use, unspecified, uncomplicated
CPT/HCPCS: 80307

== ENCOUNTER 2016-11-26 05:09 | Emergency (ER) | payer OTHER ==
[~2016-11-26] VITALS: Ht 182.9 cm; Wt 70.0 kg
[~2016-11-26 05:09] MED LIST changes: +CEPH500C3 PO; +FLUO20SO3 PO; -HALO0.5T PO; +HALO5TAB PO; +OXYC-360 PO; +RANI150 PO; +RISP1 PO
[2016-11-26 05:18] VITALS: BP 130/89; PULSE 92; RESP 18; O2SAT 98
--- NOTE | 2016-11-26 05:26 | PD ---
HPI Chief Complaint: Psychiatric Symptoms Time Seen by Provider: 05:10 Travel History International Travel<30 days: No Contact w/Intl Traveler<30days: No Traveled to known affect area: No History of Present Illness HPI This is a 36-year-old male with history of schizophrenia, well known to this emergency department, who presents under Brandt act initiated by [place] [employer]. According to his Brandt act form, "stated he wanted to kill himself." The patient reports that he wants to . He is very disorganized in his speech and thought pattern. He endorses cocaine abuse tonight. The patient was just seen here and discharged yesterday by psychiatry. He is not currently using any psychiatric medications. He has no medical complaints at this time. [facility] Past Medical History Arthritis: No Asthma: No Autoimmune Disease: No Blood Disorders: No Anxiety: No Depression: Yes Cancer: No Cardiovascular Problems: Yes (Tachycardia) High Cholesterol: No Chest Pain: No Congestive Heart Failure: No COPD: No Cerebrovascular Accident: No Diabetes: No Diminished Hearing: No Endocrine: No GERD: No Glaucoma: No Genitourinary: No Headaches: No Hepatitis: No Hiatal Hernia: No Hypertension: No Immune Disorder: No Musculoskeletal: No Neurologic: No Psychiatric: Yes (Schizophrenia,) Reproductive: No Respiratory: No Immunizations Current: No Migraines: No Myocardial Infarction: No Schizophrenia: Yes Seizures: No Sleep Apnea: No Ulcer: No Past Surgical History Abdominal Surgery: No AICD: No Appendectomy: No Body Medical Devices: Facial plate Cardiac Surgery: No Cholecystectomy: No Ear Surgery: Yes (Obtained from hx. Patient refuses to answer) Endocrine Surgery: No Eye Surgery: Yes (Obtained from hx. Patient refuses to answer) Genitourinary Surgery: No Gynecologic Surgery: No Neurologic Surgery: No Oral Surgery: Yes (Obtained from hx. Facial plate) Pacemaker: No Thoracic Surgery: No Other Surgery: Yes (plate in face) Social History Alcohol Use: Yes Tobacco Use: Yes Substance Use: Yes (Cocaine, Marijuana, K2) Allergies-Medications (Allergen,Severity, Reaction): Coded Allergies: shellfish derived (Unverified Allergy, Severe, EDEMA, HIVES, 11/26/16) Reported Meds & Prescriptions Reported Meds & Active Scripts Active Haloperidol 5 Mg Tab 5 Mg PO BID Review of Systems ROS Limitations: Psychotic Except as stated in HPI: all other systems reviewed are Neg Physical Exam Exam Limitations: Psychotic Narrative GENERAL: Well-developed well-nourished male in no acute distress. He is somewhat agitated and disorganized on initial examination SKIN: Warm and dry. The patient refuses additional physical examination at this time. MUSCULOSKELETAL: No obvious deformities. NEUROLOGICAL: Awake and alert. No obvious cranial nerve deficits. Motor grossly within normal limits. Normal speech. PSYCHIATRIC: Agitated, disorganized speech and thought pattern. Insight and judgment are limited. Data Data Last Documented VS Vital Signs Date Time Temp Pulse Resp B/P Pulse Ox O2 Delivery O2 Flow Rate FiO2 11/26/16 05:18 92 18 130/89 98 Orders Haloperidol Inj (Haldol Inj) (11/26/16 05:30) Drug Screen, Random Urine (11/26/16 05:21) Psych Screen (11/26/16 05:26) MDM Medical Decision Making Medical Screen Exam Complete: Yes Emergency Medical Condition: Yes Medical Record Reviewed: Yes Differential Diagnosis Schizophrenia, acute psychosis, substance induced mood disorder, medication noncompliance Narrative Course This is a 36-year-old male who has a history of schizophrenia and drug abuse, recently discharged after psychiatric evaluation, who presents under Brandt act for evaluation of suicidal ideation. I have reviewed his recent records. He was being given Haldol 5 mg bid. Dose of Tylenol has been ordered at this time. I have reviewed all of his recent lab work. Mental health screening discussed with the patient. Psychiatric screen ordered. The patient is medically cleared for psychiatric disposition. Diagnosis Primary Impression: Schizophrenia Qualified Code: F20.9 - Schizophrenia, unspecified type Gildardo Navarro Nov 26, 2016 05:26
[2016-11-26] MEDS ORDERED: HALOPERIDOL LACTATE 5 MG/ML AMP IM ONE (05:30)
--- NOTE | 2016-11-26 11:20 | PD ---
History of Present Illness Chief Complaint: Psychiatric Symptoms Time Seen by Provider: 11:00 Travel History International Travel<30 Days: No Contact w/Intl Traveler<30days: No Known affected area: No Legal Status Legal Status: Brandt Act Brandt Act Signed By: Remberto Real History of Present Illness: 36-year-old male, well known to this physician and the staff in the Department of psychiatry here at [facility]. He was brought in under a Brandt act complaining of suicidality with plan. He was released from the inpatient unit yesterday by Dr. Lara and when out and used cocaine last night. Patient has been admitted to the inpatient unit and seen in the emergency department at least 12 times in the last year, often with a history of cocaine abuse. Patient has been variously diagnosed with schizophrenia, schizoaffective disorder, substance induced mood disorder, etc. This physician has come to learn the patient is malingering his mental illness and when he is not high on drugs, he is quite organized and shows no significant clinical evidence of psychotic illness. When interviewed by this physician, this morning, the patient indeed is cognitively intact and clear but claiming he left the hospital too soon yesterday. He states he wants to return to the hospital to keep himself from using cocaine. When informed by this physician that we are not licensed for drug and alcohol detox or rehabilitation, the patient got off his gurney, went to a nursing area, picked up an EKG cord and demonstrated to this physician how he could strangle himself. When asked to stop, he did so but states he can always find something else with which to strangle himself. This physician spoke with Dr. Bañuelos, who also knows the patient well, and concurs with this physician, the main problem the patient has is drug abuse. There appears to be no significant objective clinical evidence at this time the patient suffers from a psychotic illness. Rather, the patient acts out. PFSH Past Medical History Arthritis: No Asthma: No Autoimmune Disease: No Blood Disorders: No Anxiety: No Depression: Yes Cancer: No Cardiovascular Problems: Yes (Tachycardia) High Cholesterol: No Chest Pain: No Congestive Heart Failure: No COPD: No Cerebrovascular Accident: No Diabetes: No Diminished Hearing: No Endocrine: No GERD: No Glaucoma: No Genitourinary: No Headaches: No Hepatitis: No Hiatal Hernia: No Hypertension: No Immune Disorder: No Musculoskeletal: No Neurologic: No Psychiatric: Yes (Schizophrenia,) Reproductive: No Respiratory: No Immunizations Current: No Migraines: No Myocardial Infarction: No Schizophrenia: Yes Seizures: No Sleep Apnea: No Ulcer: No Past Surgical History Abdominal Surgery: No AICD: No Appendectomy: No Body Medical Devices: Facial plate Cardiac Surgery: No Cholecystectomy: No Ear Surgery: Yes (Obtained from hx. Patient refuses to answer) Endocrine Surgery: No Eye Surgery: Yes (Obtained from hx. Patient refuses to answer) Genitourinary Surgery: No Gynecologic Surgery: No Neurologic Surgery: No Oral Surgery: Yes (Obtained from hx. Facial plate) Pacemaker: No Thoracic Surgery: No Other Surgery: Yes (plate in face) Psychiatric History Psychiatric History Hx Psychiatric Treatment: Pt has an extensive history of inpatient psychiatric hospitalizations including visits to [facility], [facility], [facility] and facilities in [place]. He has a history of outpatient psychiatric services through [facility] though it is believed he has been noncompliant with medication and appointments. This physician feels there is no significant clinical objective evidence of psychotic illness at this time. History of Inpatient Treatment: Yes Guns or firearms in home: No Social History Hx Alcohol Use: Yes Hx Tobacco Use: Yes Hx Substance Use: Yes (Cocaine, Marijuana, K2) Substance Use Type: Crack, Marijuana Other Substances Used: HX OF CRACK PER RECORDS Hx of Substance Use Treatment: No Allergies-Medications (Allergen,Severity, Reaction): Coded Allergies: shellfish derived (Unverified Allergy, Severe, EDEMA, HIVES, 11/26/16) Reported Meds & Prescriptions Reported Meds & Active Scripts Active Haloperidol 5 Mg Tab 5 Mg PO BID Review of Systems Except as stated in HPI: all other systems reviewed are Neg Exam Alert: Yes [place]: Person, Place, Date, Situation Mood: Oppositional Affect: Appropriate Speech: Clear, Logical Eye Contact: Normal Memory Intact: Immediate, Recent, Remote Suicidal: Ideation Insight/Judgement Adequate [facility] Medical Decision Making Medical Record Reviewed: Yes Assessment/Plan Patient's medical record was reviewed extensively by this physician, discussed extensively with the nurseNasir and discussed extensively with Dr. Bañuelos and nurse practitioner Ursula Santos. Despite some of the previous diagnoses of psychotic illness like schizophrenia, we feel the patient actually has a problem with drug abuse and is often malingering for a hospital bed, food, etc. This physician feels it is counter therapeutic and enabling the patient by giving into his manipulations with regard to diagnosis and treatment. Instead, this physician and Dr. Bañuelos and the nurse practitioner and the ED nurse feel when the patient comes in for admission, he should be screened for drug abuse. If he is indeed positive for illicit drugs, he should be placed in a waiting chair for evaluation by psychiatry. It is understood the patient may act out and even hurt himself. However this is unpredictable and unavoidable, should the patient wish to do so. Such episodes of acting out need to be evaluated on a case by case basis, but if it remains counter therapeutic and enabling to give into his manipulations, we suggest the patient be considered for discharge. Therefore, at this time, this physician is lifting the patient' s Brandt act and referring him to [facility] for drug treatment. Orders Haloperidol Inj (Haldol Inj) (11/26/16 05:30) Drug Screen, Random Urine (11/26/16 05:21) Psych Screen (11/26/16 05:26) Diet Regular Basic (11/26/16 Breakfast) Results Vital Signs Date Time Temp Pulse Resp B/P Pulse Ox O2 Delivery O2 Flow Rate FiO2 11/26/16 05:18 92 18 130/89 98 Diagnosis Primary Impression: Cocaine abuse Additional Impression: Malingering Problem Qualifiers Romeo Alexander MD Nov 26, 2016 11:20
== END 2016-11-26 11:45 | disposition home or self-care (01) ==
LOC: NEPD 05:09
DX: F14.10 Cocaine abuse, uncomplicated (principal); F20.9 Schizophrenia, unspecified; Z76.5 Malingerer [conscious simulation]; Z72.0 Tobacco use; Z79.899 Other long term (current) drug therapy
CPT/HCPCS: 96372; 99284; J1630

== ENCOUNTER 2016-11-30 02:34 | Emergency (ER) | payer OTHER ==
[2016-11-30 02:50] VITALS: BP 133/96; PULSE 88; RESP 20; TEMP 97.5; O2SAT 100
--- NOTE | 2016-11-30 02:57 | PD ---
HPI Chief Complaint: Psychiatric Symptoms Time Seen by Provider: 02:45 Travel History International Travel<30 days: No Contact w/Intl Traveler<30days: No Traveled to known affect area: No History of Present Illness HPI This is a 36-year-old male with history of cocaine abuse, questionable history of schizophrenia, well known to this emergency department and hospital, presents under Brandt act initiated by the Police Department. According to the Brandt act form, "Travis stated he is off of his medications. Travis advised that the world is fake, and stated he does not want to live anymore. Travis would not advise any further information, and was uncooperative." The patient admits to cocaine abuse tonight. He has no other complaints at this time. This patient was most recently seen here on November 26. He was seen at that time by psychiatrist Dr. Alexander who feels that his symptoms are more drug related and psychiatric related. PFSH Past Medical History Arthritis: No Asthma: No Autoimmune Disease: No Blood Disorders: No Anxiety: No Depression: Yes Cancer: No Cardiovascular Problems: Yes (Tachycardia) High Cholesterol: No Chest Pain: No Congestive Heart Failure: No COPD: No Cerebrovascular Accident: No Diabetes: No Diminished Hearing: No Endocrine: No GERD: No Glaucoma: No Genitourinary: No Headaches: No Hepatitis: No Hiatal Hernia: No Hypertension: No Immune Disorder: No Musculoskeletal: No Neurologic: No Psychiatric: Yes (Schizophrenia,) Reproductive: No Respiratory: No Immunizations Current: No Migraines: No Myocardial Infarction: No Schizophrenia: Yes Seizures: No Sleep Apnea: No Ulcer: No Past Surgical History Abdominal Surgery: No AICD: No Appendectomy: No Body Medical Devices: Facial plate Cardiac Surgery: No Cholecystectomy: No Ear Surgery: Yes (Obtained from hx. Patient refuses to answer) Endocrine Surgery: No Eye Surgery: Yes (Obtained from hx. Patient refuses to answer) Genitourinary Surgery: No Gynecologic Surgery: No Neurologic Surgery: No Oral Surgery: Yes (Obtained from hx. Facial plate) Pacemaker: No Thoracic Surgery: No Other Surgery: Yes (plate in face) Social History Alcohol Use: Yes (OCC) Tobacco Use: Yes (6-8 CIGS PER DAY) Substance Use: Yes (Cocaine, Marijuana, K2) Allergies-Medications (Allergen,Severity, Reaction): Coded Allergies: shellfish derived (Unverified Allergy, Severe, EDEMA, HIVES, 8/17/17) Reported Meds & Prescriptions Reported Meds & Active Scripts Active Haloperidol 5 Mg Tab 5 Mg PO BID Review of Systems Except as stated in HPI: all other systems reviewed are Neg Physical Exam Narrative GENERAL: Well-nourished male in no acute distress SKIN: Warm and dry. HEAD: Atraumatic. Normocephalic. EYES: Pupils equal and round. No scleral icterus. No injection or drainage. ENT: No nasal bleeding or discharge. Mucous membranes pink and moist. NECK: Trachea midline. No JVD. CARDIOVASCULAR: Regular rate and rhythm. No murmur appreciated. RESPIRATORY: No accessory muscle use. Clear to auscultation. Breath sounds equal bilaterally. GASTROINTESTINAL: Abdomen soft, non-tender, nondistended. Hepatic and splenic margins not palpable. MUSCULOSKELETAL: No obvious deformities. No clubbing. No cyanosis. No edema. NEUROLOGICAL: Awake and alert. No obvious cranial nerve deficits. Motor grossly within normal limits. Normal speech. PSYCHIATRIC: Appropriate mood and affect; insight and judgment normal. Data Data Last Documented VS Vital Signs Date Time Temp Pulse Resp B/P (MAP) Pulse Ox O2 Delivery O2 Flow Rate FiO2 11/30/16 02:50 97.5 88 20 133/96 (108) 100 Orders Orders Drug Screen, Random Urine (11/30/16 02:48) Psych Screen (11/30/16 02:49) MDM Medical Decision Making Medical Screen Exam Complete: Yes Emergency Medical Condition: Yes Medical Record Reviewed: Yes Differential Diagnosis Substance induced mood disorder, acute psychosis, schizophrenia, malingering Narrative Course 36-year-old male presents under Brandt act for psychiatric evaluation. Mental health screening discussed with the patient. Psychiatric screen ordered. I have reviewed his recent records and his recent lab work. He is medically cleared for psychiatric disposition. Diagnosis Primary Impression: Encounter for psychiatric assessment Gildardo Navarro Nov 30, 2016 02:57
[2016-11-30 08:21] VITALS: BP 121/78; PULSE 68; RESP 18; TEMP 98.1; O2SAT 100
--- NOTE | 2016-11-30 11:00 | PD ---
History of Present Illness Chief Complaint: Psychiatric Symptoms Time Seen by Provider: 10:30 Travel History International Travel<30 Days: No Contact w/Intl Traveler<30days: No Known affected area: No Legal Status Legal Status: Brandt Act Brandt Act Signed By: History of Present Illness: Patient is very well known to this physician from previous inpatient and emergency department visits. He is once again presenting himself for admission. This physician refers the reader of this note to the last time this physician evaluated the patient in the emergency department, last week. Circumstances have not significantly changed for the patient since his last evaluation by this physician. The patient was once again coached to stop using drugs and enter a rehabilitation facility. According to Kevin, the account representative from [facility], the patient has visited their 54 times so far this year. This physician continues to believe it is counter therapeutic to admit the patient to psychiatry and it is enabling his continued use of illicit drugs. PFSH Past Medical History Arthritis: No Asthma: No Autoimmune Disease: No Blood Disorders: No Anxiety: No Depression: Yes Heart Rhythm Problems: Yes (tachycardia) Cancer: No Cardiovascular Problems: Yes (Tachycardia) High Cholesterol: No Chest Pain: No Congestive Heart Failure: No COPD: No Cerebrovascular Accident: No Diabetes: No Diminished Hearing: No Endocrine: No GERD: No Glaucoma: No Genitourinary: No Headaches: No Hepatitis: No Hiatal Hernia: No Hypertension: No Immune Disorder: No Implanted Vascular Access Dvce: Yes Musculoskeletal: No Neurologic: No Psychiatric: Yes (Schizophrenia,) Reproductive: No Respiratory: No Immunizations Current: No Migraines: No Myocardial Infarction: No Schizophrenia: Yes Seizures: No Sleep Apnea: No Ulcer: No Tetanus Vaccination: Unknown Past Surgical History Abdominal Surgery: No AICD: No Appendectomy: No Body Medical Devices: Facial plate Cardiac Surgery: No Cholecystectomy: No Ear Surgery: Yes (Obtained from hx. Patient refuses to answer) Endocrine Surgery: No Eye Surgery: Yes (Obtained from hx. Patient refuses to answer) Genitourinary Surgery: No Gynecologic Surgery: No Neurologic Surgery: No Oral Surgery: Yes (Obtained from hx. Facial plate) Pacemaker: No Thoracic Surgery: No Other Surgery: Yes (plate in face) Psychiatric History Psychiatric History Hx Psychiatric Treatment: Pt has an extensive history of inpatient psychiatric hospitalizations including visits to [facility], [facility], [place] and facilities in [place]. He has a history of outpatient psychiatric services through [facility] though it is believed he has been noncompliant with medication and appointments. This physician feels there is no significant clinical objective evidence of psychotic illness at this time. History of Inpatient Treatment: Yes Guns or firearms in home: No Social History Hx Alcohol Use: Yes Hx Tobacco Use: Yes (6-8 CIGS PER DAY) Hx Substance Use: Yes (Cocaine (TODAY), Marijuana, K2) Substance Use Type: Crack, Marijuana Other Substances Used: HX OF CRACK PER RECORDS Hx of Substance Use Treatment: No Allergies-Medications (Allergen,Severity, Reaction): Coded Allergies: shellfish derived (Unverified Allergy, Severe, EDEMA, HIVES, 11/26/16) Reported Meds & Prescriptions Reported Meds & Active Scripts Active Haloperidol 5 Mg Tab 5 Mg PO BID Review of Systems Except as stated in HPI: all other systems reviewed are Neg Exam Alert: Yes [place]: Person, Place, Date, Situation Mood: Calm Affect: Euthymic Speech: Clear Eye Contact: Normal Memory Intact: Immediate, Recent, Remote Suicidal: Ideation Insight/Judgement Adequate MDM Medical Decision Making Medical Record Reviewed: Yes Assessment/Plan The patient is once again positive for cocaine, cannabis and opiates. He is once again being referred for treatment of his drug problem. The patient's Brandt act is being lifted and he is being discharged. Again, this physician is aware of the risk of the patient acting out by harming himself or in some other unpredictable fashion. This is felt to be an unavoidable risk and that the patient would be competent if he did so. He should there for take responsibility for any actions he engenders. Orders Orders Drug Screen, Random Urine (11/30/16 02:48) Psych Screen (11/30/16 02:49) Diet Regular Basic (11/30/16 Breakfast) Results Vital Signs Date Time Temp Pulse Resp B/P (MAP) Pulse Ox O2 Delivery O2 Flow Rate FiO2 11/30/16 08:21 98.1 68 18 121/78 (92) 100 Room Air 11/30/16 08:21 68 18 11/30/16 02:50 97.5 88 20 133/96 (108) 100 Laboratory Tests Test 11/30/16 02:57 Urine Opiates Screen NEG Urine Barbiturates Screen NEG Urine Amphetamines Screen NEG Urine Benzodiazepines Screen NEG Urine Cocaine Screen POS Urine Cannabinoids Screen POS Diagnosis Primary Impression: Adjustment disorder with mixed disturbance of emotions and conduct Additional Impression: Cocaine abuse Departure Forms: Tests/Procedures Patient Instructions: General Instructions Disposition: 01 DISCHARGE HOME Condition: Stable Problem Qualifiers Romeo Alexander MD Nov 30, 2016 11:00
== END 2016-11-30 11:36 | disposition home or self-care (01) ==
LOC: NEPD 02:34
DX: F43.25 Adjustment disorder with mixed disturbance of emotions and conduct (principal); F14.10 Cocaine abuse, uncomplicated; F17.210 Nicotine dependence, cigarettes, uncomplicated
CPT/HCPCS: 80307; 99284

== ENCOUNTER 2016-12-03 00:33 | Emergency (ER) | payer SELFPAY ==
[~2016-12-03] VITALS: Ht 180.3 cm; Wt 80.0 kg
[2016-12-03 00:36] VITALS: BP 147/73; PULSE 88; RESP 16; O2SAT 96
--- NOTE | 2016-12-03 01:41 | PD ---
HPI Chief Complaint: Psychiatric Symptoms Time Seen by Provider: 01:27 Travel History International Travel<30 days: No Contact w/Intl Traveler<30days: No Traveled to known affect area: No History of Present Illness HPI 36-year-old black male well-known to the ER staff for multiple visits and a history of schizophrenia and substance abuse presents to the ER once again for psychological evaluation on a voluntary basis. The patient was just seen by Dr. Alexander 2 days ago and discharged home. The patient states that he is having visual hallucinations. He states that he sees a man rolling on the ground and his flashes peeling off. He also states that he sees a woman who is a robot with multiple eyes about her body. When the patient is asked whether he is having any bad thoughts he answers yes but would not elaborate on what he is referring to. The patient denies using drugs in the last few days. He denies any toxic ingestions. No recent illness PFSH Past Medical History Arthritis: No Asthma: No Autoimmune Disease: No Blood Disorders: No Anxiety: No Depression: Yes Heart Rhythm Problems: Yes (tachycardia) Cancer: No Cardiovascular Problems: Yes (Tachycardia) High Cholesterol: No Chest Pain: No Congestive Heart Failure: No COPD: No Cerebrovascular Accident: No Diabetes: No Diminished Hearing: No Endocrine: No GERD: No Glaucoma: No Genitourinary: No Headaches: No Hepatitis: No Hiatal Hernia: No Hypertension: No Immune Disorder: No Implanted Vascular Access Dvce: Yes Musculoskeletal: No Neurologic: No Psychiatric: Yes (Schizophrenia,) Reproductive: No Respiratory: No Immunizations Current: No Migraines: No Myocardial Infarction: No Schizophrenia: Yes Seizures: No Sleep Apnea: No Ulcer: No Past Surgical History Abdominal Surgery: No AICD: No Appendectomy: No Body Medical Devices: Facial plate Cardiac Surgery: No Cholecystectomy: No Ear Surgery: Yes (Obtained from hx. Patient refuses to answer) Endocrine Surgery: No Eye Surgery: Yes (Obtained from hx. Patient refuses to answer) Genitourinary Surgery: No Gynecologic Surgery: No Neurologic Surgery: No Oral Surgery: Yes (Obtained from hx. Facial plate) Pacemaker: No Thoracic Surgery: No Other Surgery: Yes (plate in face) Social History Alcohol Use: Yes Tobacco Use: Yes (6-8 CIGS PER DAY) Substance Use: Yes (Cocaine (TODAY), Marijuana, K2) Allergies-Medications (Allergen,Severity, Reaction): Coded Allergies: shellfish derived (Unverified Allergy, Severe, EDEMA, HIVES, 12/03/16) Reported Meds & Prescriptions Reported Meds & Active Scripts Active Haloperidol 5 Mg Tab 5 Mg PO BID Review of Systems ROS Limitations: Poor Historian Except as stated in HPI: all other systems reviewed are Neg Physical Exam Narrative GENERAL: Well-nourished, well-developed patient. SKIN: Warm and dry. HEAD: Normocephalic and atraumatic. EYES: No scleral icterus. No injection or drainage. ENT: No nasal drainage noted. Mucous membranes pink. Airway patent. NECK: Supple, trachea midline. Moves head freely without obvious discomfort. CARDIOVASCULAR: Regular rate and rhythm without murmurs, gallops, or rubs. RESPIRATORY: Breath sounds equal bilaterally. No accessory muscle use. GASTROINTESTINAL: Abdomen soft, non-tender, nondistended. EXTREMITIES: No cyanosis or edema. BACK: Nontender without obvious deformity. No CVA tenderness. NEURO: Patient is alert and oriented. no sensorimotor deficits. Nonfocal. Normal speech. PSYCH: Patient appears paranoid and reports visual hallucinations. Data Data Last Documented VS Vital Signs Date Time Temp Pulse Resp B/P (MAP) Pulse Ox O2 Delivery O2 Flow Rate FiO2 12/03/16 00:36 88 16 147/73 (97) 96 Room Air Orders Orders Psych Screen (12/03/16 01:36) Drug Screen, Random Urine (12/03/16 01:36) Labs Laboratory Tests Test 12/03/16 01:45 Urine Opiates Screen NEG Urine Barbiturates Screen NEG Urine Amphetamines Screen NEG Urine Benzodiazepines Screen NEG Urine Cocaine Screen POS Urine Cannabinoids Screen POS MDM Medical Decision Making Medical Screen Exam Complete: Yes Emergency Medical Condition: Yes Medical Record Reviewed: Yes Interpretation(s) Laboratory Tests Test 12/03/16 01:45 Urine Opiates Screen NEG Urine Barbiturates Screen NEG Urine Amphetamines Screen NEG Urine Benzodiazepines Screen NEG Urine Cocaine Screen POS Urine Cannabinoids Screen POS Differential Diagnosis MDM: High Differential diagnoses: Schizophrenia, schizoaffective disorder, bipolar, anxiety, depression, psychosis NOS, substance induced mood disorder, malingering. Narrative Course Mental health screening discussed with the patient. Psychiatric screen ordered. The patient is been medically cleared. We will perform a urinalysis to confirm if he has been using drugs recently. I see no reason to perform any other additional laboratory testing. Patient urinalysis is positive for cocaine and marijuana This is medical clearance for psychiatric admission, polysubstance abuse Diagnosis Primary Impression: Medical clearance for psychiatric admission Additional Impression: Polysubstance abuse Condition: Stable Mal Bailey Dec 03, 2016 01:41
[2016-12-03 06:53] VITALS: BP 142/75; PULSE 78; RESP 18; O2SAT 97
[2016-12-03 07:56] VITALS: BP 128/79; PULSE 67; RESP 16; O2SAT 100
--- NOTE | 2016-12-03 13:54 | PD ---
History of Present Illness Chief Complaint: Psychiatric Symptoms Time Seen by Provider: 13:50 Travel History International Travel<30 Days: No Contact w/Intl Traveler<30days: No Known affected area: No Legal Status Legal Status: Voluntary History of Present Illness: History of Present Illness HPI 36-year-old black male well-known to the ER staff for multiple visits, history of substance abuse, non compliant with treatment recommendations who presents to the ER on a voluntary stat us for psychological evaluation. The patient was just seen by Dr. Alexander 2 days ago and discharged home. ED documentation is reviewed and is included in this report : " The patient states that he is having visual hallucinations. He states that he sees a man rolling on the ground and his flashes peeling off. He also states that he sees a woman who is a robot with multiple eyes about her body. When the patient is asked whether he is having any bad thoughts he answers yes but would not elaborate on what he is referring to. " The patient denies using drugs in the last few days but his toxicology is positive for cocaine as well as cannabinoids. The patient has been sleeping and resting since he has been in ED. He did not present any behavioral concerns while in ED. Seen. Record reviewed. [facility] case fitter Kevin present during interview. Patient is asleep . Awakens with verbal stimuli but is uncooperative and does not want to answer any questions. After some continued prompting Mr. Robles tells me that he came to the hospital " for some solitude so leave me alone". When informed that if he presented to Ed for evaluation that it is necessary for him to cooperate with the interview , he becomes upset and states . " what is wrong with me?. I inform him that according to the test results he is using substances that may be contributing to his symptoms he then states that he will throw water over my computer " because that is all that you are interested in" . So just let me go. I don't need to be here". He does not threaten to hurt himself or anyone else. He requests to have bus passes so that he can go back to [facility]. [facility] Past Medical History Arthritis: No Asthma: No Autoimmune Disease: No Blood Disorders: No Anxiety: No Depression: Yes Heart Rhythm Problems: Yes (tachycardia) Cancer: No Cardiovascular Problems: Yes (Tachycardia) High Cholesterol: No Chest Pain: No Congestive Heart Failure: No COPD: No Cerebrovascular Accident: No Diabetes: No Diminished Hearing: No Endocrine: No GERD: No Glaucoma: No Genitourinary: No Headaches: No Hepatitis: No Hiatal Hernia: No Hypertension: No Immune Disorder: No Implanted Vascular Access Dvce: Yes Musculoskeletal: No Neurologic: No Psychiatric: Yes (Schizophrenia,) Reproductive: No Respiratory: No Immunizations Current: No Migraines: No Myocardial Infarction: No Schizophrenia: Yes Seizures: No Sleep Apnea: No Ulcer: No Tetanus Vaccination: Unknown Influenza Vaccination: No Past Surgical History Abdominal Surgery: No AICD: No Appendectomy: No Body Medical Devices: Facial plate Cardiac Surgery: No Cholecystectomy: No Ear Surgery: Yes (Obtained from . Patient refuses to answer) Endocrine Surgery: No Genitourinary Surgery: No Gynecologic Surgery: No Neurologic Surgery: No Oral Surgery: Yes (Obtained from . Facial plate) Pacemaker: No Thoracic Surgery: No Other Surgery: Yes (plate in face) Psychiatric History Psychiatric History Hx Psychiatric Treatment: Pt has history of inpatient psychiatric hospitalizations including visits to [facility], [facility], [place] and facilities in [place]. He has a history of outpatient psychiatric services through [facility] but he has been noncompliant with medication and appointments. History of Inpatient Treatment: Yes (Admitted to [facility] psychiatry Nov 21 to Nov 25, 2016. he refused any tretametn at that tiome. ) Social History Single, unemployed. Homeless Hx Alcohol Use: Yes (RARELY) Hx Tobacco Use: Yes (6-8 CIGS PER DAY) Hx Substance Use: Yes (Cocaine, Marijuana, K2) Substance Use Type: Crack, Marijuana Other Substances Used: HX OF CRACK PER RECORDS Hx of Substance Use Treatment: No Family Psychiatric History None Allergies-Medications (Allergen,Severity, Reaction): Coded Allergies: shellfish derived (Unverified Allergy, Severe, EDEMA, HIVES, 12/03/16) Reported Meds & Prescriptions Reported Meds & Active Scripts Active Haloperidol 5 Mg Tab 5 Mg PO BID Review of Systems ROS Limitations: Uncooperative Exam Alert: Yes [place]: Person Mood: Agitated Affect: Appropriate Speech: Clear, Logical Eye Contact: Normal Memory Intact: Comment (Unable to test) Hallucinations: Other (Does nto appear to be responding to internal stimuli) Delusions: No Suicidal: Ideation (negative) Homicidal: Ideation (negative) Insight/Judgement Poor. Poor MDM Medical Decision Making Medical Record Reviewed: Yes Assessment/Plan 36-year-old black male well-known to the ER staff for multiple visits and a history of substance abuse presents to the ER once again for psychological evaluation on a voluntary basis. Patient at this time does not verbalize any suicdal or homicidal ideation and states " Just give me a bus pass so that I can leave".I suspect that he came to the ed for senior living. Cleared by psychiatry for discharge. Case discussed with Dr. Brown for disposition. Orders Orders Psych Screen (12/03/16 01:36) Drug Screen, Random Urine (12/03/16 01:36) Diet Regular Basic (12/03/16 Breakfast) Results Vital Signs Date Time Temp Pulse Resp B/P (MAP) Pulse Ox O2 Delivery O2 Flow Rate FiO2 12/03/16 07:56 67 16 128/79 (95) 100 12/03/16 06:53 78 18 142/75 (97) 97 Room Air 12/03/16 00:36 88 16 147/73 (97) 96 Room Air Laboratory Tests Test 12/03/16 01:45 Urine Opiates Screen NEG Urine Barbiturates Screen NEG Urine Amphetamines Screen NEG Urine Benzodiazepines Screen NEG Urine Cocaine Screen POS Urine Cannabinoids Screen POS Diagnosis Primary Impression: Polysubstance abuse Additional Impression: Substance induced mood disorder Psychiatrically Cleared: Yes Med/ Other Pt Specific Info: No Meds Exist/No RX given Disposition: 01 DISCHARGE HOME Condition: Stable Problem Qualifiers Ursula Santos [facility] Dec 03, 2016 13:54
== END 2016-12-03 14:35 | disposition home or self-care (01) ==
LOC: NEPD 00:33
DX: F19.14 Other psychoactive substance abuse with psychoactive substance-induced mood disorder (principal); F14.10 Cocaine abuse, uncomplicated; F12.10 Cannabis abuse, uncomplicated
CPT/HCPCS: 80307; 99284

== ENCOUNTER 2016-12-12 04:43 | Emergency (ER) | payer SELFPAY ==
[2016-12-12 04:45] VITALS: BP 142/83; PULSE 64; RESP 16; TEMP 97.6; O2SAT 100
--- NOTE | 2016-12-12 06:03 | PD ---
HPI Chief Complaint: Psychiatric Symptoms Time Seen by Provider: 05:53 Travel History International Travel<30 days: No Contact w/Intl Traveler<30days: No Traveled to known affect area: No History of Present Illness HPI 36-year-old black male presents to emergency department on a voluntary basis for evaluation. He states that he is depressed. He has no friends or family in the area. He continues to abuse marijuana and cocaine. He states that he had spent his last $15 on cocaine yesterday. He has nowhere to sleep it's wet outside. He states that he is thought about hurting himself. He has no current plan. He denies any toxic ingestions. He denies any medical complaints. No homicidal ideation. PFSH Past Medical History Arthritis: No Asthma: No Autoimmune Disease: No Blood Disorders: No Anxiety: No Depression: Yes Heart Rhythm Problems: Yes Cancer: No Cardiovascular Problems: Yes High Cholesterol: No Chest Pain: No Congestive Heart Failure: No COPD: No Cerebrovascular Accident: No Diabetes: No Diminished Hearing: No Endocrine: No GERD: No Glaucoma: No Genitourinary: No Headaches: No Hepatitis: No Hiatal Hernia: No Hypertension: No Immune Disorder: No Implanted Vascular Access Dvce: Yes Musculoskeletal: No Neurologic: No Psychiatric: Yes (Schizophrenia) Reproductive: No Respiratory: No Immunizations Current: No Migraines: No Myocardial Infarction: No Schizophrenia: Yes Seizures: No Sleep Apnea: No Ulcer: No Past Surgical History Abdominal Surgery: No AICD: No Appendectomy: No Body Medical Devices: Facial plate Cardiac Surgery: No Cholecystectomy: No Ear Surgery: Yes Endocrine Surgery: No Genitourinary Surgery: No Gynecologic Surgery: No Neurologic Surgery: No Oral Surgery: Yes ( Facial plate) Pacemaker: No Thoracic Surgery: No Other Surgery: Yes (plate in face) Social History Alcohol Use: Yes Tobacco Use: Yes Substance Use: Yes (CRACK,Cocaine, Marijuana, K2) Allergies-Medications (Allergen,Severity, Reaction): Coded Allergies: shellfish derived (Unverified Allergy, Severe, EDEMA, HIVES, 12/12/16) Reported Meds & Prescriptions Reported Meds & Active Scripts Active Haloperidol 5 Mg Tab 5 Mg PO BID Review of Systems Except as stated in HPI: all other systems reviewed are Neg Physical Exam Narrative GENERAL: Well-nourished, well-developed patient. SKIN: Warm and dry. HEAD: Normocephalic and atraumatic. EYES: No scleral icterus. No injection or drainage. ENT: No nasal drainage noted. Mucous membranes pink. Airway patent. NECK: Supple, trachea midline. Moves head freely without obvious discomfort. CARDIOVASCULAR: Regular rate and rhythm without murmurs, gallops, or rubs. RESPIRATORY: Breath sounds equal bilaterally. No accessory muscle use. GASTROINTESTINAL: Abdomen soft, non-tender, nondistended. EXTREMITIES: No cyanosis or edema. BACK: Nontender without obvious deformity. No CVA tenderness. NEURO: Patient is alert and oriented. no sensorimotor deficits. Nonfocal. Normal speech. PSYCH: Poor insight and judgment. He reports hallucinations. This is not uncommon for this individual. Data Data Last Documented VS Vital Signs Date Time Temp Pulse Resp B/P (MAP) Pulse Ox O2 Delivery O2 Flow Rate FiO2 12/12/16 04:45 97.6 64 16 142/83 (102) 100 Room Air MDM Medical Decision Making Medical Screen Exam Complete: Yes Emergency Medical Condition: Yes Medical Record Reviewed: Yes Differential Diagnosis MDM: High Differential diagnoses: Schizophrenia, schizoaffective disorder, bipolar, anxiety, depression, adjustment reaction, mood disorder NOS, ODD, depressive disorder NOS, dementia, dementia with agitation, psychosis NOS, substance induced mood disorder, intermittent explosive disorder, Asperger syndrome, infection,electrolyte abnormality, malingering. Narrative Course Mental health screening discussed with the patient. Psychiatric screen ordered. The patient is sleeping in examination room on my initial exam. When I am done he rolls over in bed and pulled the covers over his head and asked me to turn the light off. I do not believe that this patient is truly a threat to himself or others. The patient has a history of substance abuse as well as mental illness but he does not appear to be acutely psychotic or having true thoughts of self-harm or harm to others. The patient's been seen multiple times in the ER and has been released by the psychiatrist. This presentation is no different than his prior presentations. The patient will be allowed to sleep here in the room and will be discharged later in the morning. He is encouraged to stop doing drugs and follow-up with [facility] as well as [facility]. Diagnosis Primary Impression: Substance induced mood disorder Patient Instructions: General Instructions Additional Instructions: Rest. Increase fluids. Avoid alcohol. Avoid illegal substances. Follow-up with [facility] for detox. Do not operate a car or any heavy machinery under the influence of alcohol or drugs. Follow-up with a medical doctor this week. Return to the ER for emergencies Med/Other Pt SpecificInfo: No Meds Exist/No RX given Disposition: 01 DISCHARGE HOME Condition: Stable Mal Bailey Dec 12, 2016 06:03
== END 2016-12-12 07:00 | disposition home or self-care (01) ==
LOC: NEPD 04:43
DX: F19.14 Other psychoactive substance abuse with psychoactive substance-induced mood disorder (principal)
CPT/HCPCS: 99281

== ENCOUNTER 2016-12-14 08:37 | Emergency (ER) | payer OTHER ==
[~2016-12-14] VITALS: Ht 180.3 cm; Wt 85.0 kg
--- NOTE | 2016-12-14 09:14 | PD ---
HPI . Suicidal ideation Chief Complaint: Psychiatric Symptoms Time Seen by Provider: 09:10 Travel History International Travel<30 days: No Contact w/Intl Traveler<30days: No Traveled to known affect area: No History of Present Illness HPI This patient is brought to us by the police as a Brandt Act for expressing suicidal ideation. He voices no specific plan. He does admit that his thoughts are "all over the place." He admits noncompliance with medications. He admits substance abuse. [place] [address]. He states that nobody on the streets like him because of his thought disorder. PFSH Past Medical History Arthritis: No Asthma: No Autoimmune Disease: No Blood Disorders: No Anxiety: No Depression: Yes Heart Rhythm Problems: Yes Cancer: No Cardiovascular Problems: Yes High Cholesterol: No Chest Pain: No Congestive Heart Failure: No COPD: No Cerebrovascular Accident: No Diabetes: No Diminished Hearing: No Endocrine: No GERD: No Glaucoma: No Genitourinary: No Headaches: No Hepatitis: No Hiatal Hernia: No Hypertension: No Immune Disorder: No Implanted Vascular Access Dvce: Yes Musculoskeletal: No Neurologic: No Psychiatric: Yes (Schizophrenia) Reproductive: No Respiratory: No Immunizations Current: No Migraines: No Myocardial Infarction: No Schizophrenia: Yes Seizures: No Sleep Apnea: No Ulcer: No Past Surgical History Abdominal Surgery: No AICD: No Appendectomy: No Body Medical Devices: Facial plate Cardiac Surgery: No Cholecystectomy: No Ear Surgery: Yes Endocrine Surgery: No Genitourinary Surgery: No Gynecologic Surgery: No Neurologic Surgery: No Oral Surgery: Yes ( Facial plate) Pacemaker: No Thoracic Surgery: No Other Surgery: Yes (plate in face) Social History Alcohol Use: Yes Tobacco Use: Yes Substance Use: Yes (CRACK,Cocaine, Marijuana, K2) Allergies-Medications (Allergen,Severity, Reaction): Coded Allergies: shellfish derived (Unverified Allergy, Severe, EDEMA, HIVES, 12/12/16) Reported Meds & Prescriptions Reported Meds & Active Scripts Active No Active Prescriptions or Reported Medications Review of Systems Except as stated in HPI: all other systems reviewed are Neg Psychiatric: Positive: Suicidal Ideations, Disorder of Thought, Substance Abuse Physical Exam Narrative GENERAL: Awake and alert and in no acute distress. Disheveled and malodorous. SKIN: Warm and dry. HEAD: Atraumatic. Normocephalic. EYES: Pupils equal and round. Extraocular movements are intact. NECK: Trachea midline. Neck is supple. CARDIOVASCULAR: Regular rate and rhythm. RESPIRATORY: No accessory muscle use. MUSCULOSKELETAL: No obvious deformities. No edema. NEUROLOGICAL: Awake and alert. No obvious cranial nerve deficits. Motor grossly within normal limits. Normal speech. PSYCHIATRIC: Obvious thought disorder with scattered thoughts. He is currently cooperative. Data Data Orders Orders Complete Blood Count With Diff (12/14/16 08:57) Comprehensive Metabolic Panel (12/14/16 08:57) Urinalysis - C+S If Indicated (12/14/16 08:57) Psych Screen (12/14/16 08:57) Drug Screen, Random Urine (12/14/16 08:57) Alcohol (Ethanol) (12/14/16 08:57) Salicylates (Aspirin) (12/14/16 08:57) Tylenol (Acetaminophen) (12/14/16 08:57) Labs Laboratory Tests Test 12/14/16 09:00 White Blood Count 7.2 TH/MM3 Red Blood Count 3.88 MIL/MM3 Hemoglobin 11.5 GM/DL Hematocrit 35.1 % Mean Corpuscular Volume 90.5 FL Mean Corpuscular Hemoglobin 29.7 PG Mean Corpuscular Hemoglobin Concent 32.8 % Red Cell Distribution Width 16.2 % Platelet Count 196 TH/MM3 Mean Platelet Volume 9.4 FL Neutrophils (%) (Auto) 67.3 % Lymphocytes (%) (Auto) 24.7 % Monocytes (%) (Auto) 6.2 % Eosinophils (%) (Auto) 1.2 % Basophils (%) (Auto) 0.6 % Neutrophils # (Auto) 4.9 TH/MM3 Lymphocytes # (Auto) 1.8 TH/MM3 Monocytes # (Auto) 0.5 TH/MM3 Eosinophils # (Auto) 0.1 TH/MM3 Basophils # (Auto) 0.0 TH/MM3 CBC Comment DIFF FINAL Differential Comment Urine Color YELLOW Urine Turbidity HAZY Urine pH 7.5 Urine Specific [place] 1.020 Urine Protein NEG mg/dL Urine Glucose (UA) NEG mg/dL Urine Ketones NEG mg/dL Urine Occult Blood SMALL Urine Nitrite NEG Urine Bilirubin NEG Urine Urobilinogen LESS THAN 2.0 MG/DL Urine Leukocyte Esterase NEG Urine RBC 4 /hpf Urine WBC 1 /hpf Urine Amorphous Sediment OCC Urine Bacteria RARE /hpf Microscopic Urinalysis Comment CULT NOT INDICATED Blood Urea Nitrogen 11 MG/DL Creatinine 0.82 MG/DL Random Glucose 86 MG/DL Total Protein 6.6 GM/DL Albumin 3.4 GM/DL Calcium Level 8.9 MG/DL Alkaline Phosphatase 75 U/L Aspartate Amino Transf (AST/SGOT) 17 U/L Alanine Aminotransferase (ALT/SGPT) 24 U/L Total Bilirubin 0.4 MG/DL Sodium Level 141 MEQ/L Potassium Level 3.5 MEQ/L Chloride Level 109 MEQ/L Carbon Dioxide Level 25.3 MEQ/L Anion Gap 7 MEQ/L Estimat Glomerular Filtration Rate 127 ML/MIN Salicylates Level 2.2 MG/DL Urine Opiates Screen NEG Acetaminophen Level LESS THAN 2.0 MCG/ML Urine Barbiturates Screen NEG Urine Amphetamines Screen NEG Urine Benzodiazepines Screen NEG Urine Cocaine Screen POS Urine Cannabinoids Screen POS Ethyl Alcohol Level LESS THAN 3 MG/DL MDM Medical Decision Making Medical Screen Exam Complete: Yes Emergency Medical Condition: Yes Differential Diagnosis Differential diagnosis of psychosis includes but is not limited to schizophrenia , schizoaffective disorder, bipolar disorder, intoxication, substance abuse, dementia Narrative Course This patient presents as a brandt act. He obviously has a thought disorder. He is currently cooperative. The nursing staff tells me that he can become very agitated and uncooperative. He will be observed expectantly. CBC & BMP Diagram 12/14/16 09:00 Total Protein 6.6, Albumin 3.4, Calcium Level 8.9, Alkaline Phosphatase 75, Aspartate Amino Transf (AST/SGOT) 17, Alanine Aminotransferase (ALT/SGPT) 24, Total Bilirubin 0.4 toxicology is pos for cocaine and marijuana. This patient is medically clear for psychiatric evaluation Diagnosis Primary Impression: Acute psychosis Additional Impression: Polysubstance abuse Scripts No Active Prescriptions or Reported Meds Condition: Stable Mariely Pérez MD Dec 14, 2016 09:14
[2016-12-14 09:20] LABS: BACTERIA, URINE RARE /hpf; BLOOD, URINE SMALL (NEG); COMMENT (UR) CULT NOT INDICATED; CULTURE IF INDICATED CULT NOT INDICATED; GLUCOSE,URINE NEG (NEG); KETONE, URINE NEG (NEG); NITRITE,URINE NEG (NEG); PH, URINE 7.5 (5.0-8.5); URINE COLOR YELLOW (YELLW/STRAW)
[2016-12-14 09:21] LABS: AUTOMATED NEUTROPHIL # 4.9 TH/MM3 (1.8-7.7); BASOPHIL % 0.6 % (0.0-2.0); EOSINOPHIL # 0.1 TH/MM3 (0-0.4); EOSINOPHIL % 1.2 % (0.0-4.0); HEMATOCRIT 35.1 % (39.0-51.0); HEMO FLAGS DIFF FINAL; LYMPH % 24.7 % (9.0-44.0); LYMPHOCYTE # 1.8 TH/MM3 (1.0-4.8); MEAN CELL VOLUME 90.5 FL (80.0-100.0); MEAN CORPUSCULAR HEMOGLOBIN 29.7 PG (27.0-34.0); MEAN CORPUSCULAR HGB CONC 32.8 % (32.0-36.0); MONO % 6.2 % (0.0-8.0); NEUT % 67.3 % (16.0-70.0); PLATELET COUNT 196 TH/MM3 (150-450); RED BLOOD COUNT 3.88 MIL/MM3 (4.50-5.90); RED CELL DISTRIBUTION WIDTH 16.2 % (11.6-17.2); WHITE BLOOD COUNT 7.2 TH/MM3 (4.0-11.0)
[2016-12-14 09:37] LABS: ALT (GPT) 24 U/L (12-78); ANION GAP 7 MEQ/L (5-15); AST (GOT) 17 U/L (15-37); BICARBONATE 25.3 MEQ/L (21.0-32.0); CHLORIDE 109 MEQ/L (98-107); GLOMERULAR FILTRATION RATE 127 ML/MIN (>89); POTASSIUM 3.5 MEQ/L (3.5-5.1); SODIUM (NA) 141 MEQ/L (136-145)
[2016-12-14 09:45] LABS: ACETAMINOPHEN LESS THAN 2.0 MCG/ML (10.0-30.0); ALKALINE PHOSPHATASE 75 U/L (45-117); BLOOD UREA NITROGEN 11 MG/DL (7-18); TOTAL BILIRUBIN ADULT 0.4 MG/DL (0.2-1.0)
[2016-12-14 09:47] LABS: ALCOHOL LESS THAN 3 MG/DL (0-5)
[2016-12-14 22:08] VITALS: BP 108/69; PULSE 60; RESP 18; O2SAT 98
[2016-12-15 02:32] VITALS: BP 134/85; PULSE 67; RESP 18; O2SAT 98
--- NOTE | 2016-12-15 09:52 | PD ---
Physical Exam Time Seen by Provider: 09:[address] Alexander has evaluated this patient and lifted the Brandt act and the patient will be discharged home. Data Data Last Documented VS Vital Signs Date Time Temp Pulse Resp B/P (MAP) Pulse Ox O2 Delivery O2 Flow Rate FiO2 12/15/16 02:32 67 18 134/85 (101) 98 12/14/16 22:08 Room Air Orders Orders Complete Blood Count With Diff (12/14/16 08:57) Comprehensive Metabolic Panel (12/14/16 08:57) Urinalysis - C+S If Indicated (12/14/16 08:57) Psych Screen (12/14/16 08:57) Drug Screen, Random Urine (12/14/16 08:57) Alcohol (Ethanol) (12/14/16 08:57) Salicylates (Aspirin) (12/14/16 08:57) Tylenol (Acetaminophen) (12/14/16 08:57) Diet Regular Basic (12/14/16 Lunch) Diet Regular Basic (12/15/16 Breakfast) Labs Laboratory Tests Test 12/14/16 09:00 White Blood Count 7.2 TH/MM3 Red Blood Count 3.88 MIL/MM3 Hemoglobin 11.5 GM/DL Hematocrit 35.1 % Mean Corpuscular Volume 90.5 FL Mean Corpuscular Hemoglobin 29.7 PG Mean Corpuscular Hemoglobin Concent 32.8 % Red Cell Distribution Width 16.2 % Platelet Count 196 TH/MM3 Mean Platelet Volume 9.4 FL Neutrophils (%) (Auto) 67.3 % Lymphocytes (%) (Auto) 24.7 % Monocytes (%) (Auto) 6.2 % Eosinophils (%) (Auto) 1.2 % Basophils (%) (Auto) 0.6 % Neutrophils # (Auto) 4.9 TH/MM3 Lymphocytes # (Auto) 1.8 TH/MM3 Monocytes # (Auto) 0.5 TH/MM3 Eosinophils # (Auto) 0.1 TH/MM3 Basophils # (Auto) 0.0 TH/MM3 CBC Comment DIFF FINAL Differential Comment Urine Color YELLOW Urine Turbidity HAZY Urine pH 7.5 Urine Specific [place] 1.020 Urine Protein NEG mg/dL Urine Glucose (UA) NEG mg/dL Urine Ketones NEG mg/dL Urine Occult Blood SMALL Urine Nitrite NEG Urine Bilirubin NEG Urine Urobilinogen LESS THAN 2.0 MG/DL Urine Leukocyte Esterase NEG Urine RBC 4 /hpf Urine WBC 1 /hpf Urine Amorphous Sediment OCC Urine Bacteria RARE /hpf Microscopic Urinalysis Comment CULT NOT INDICATED Blood Urea Nitrogen 11 MG/DL Creatinine 0.82 MG/DL Random Glucose 86 MG/DL Total Protein 6.6 GM/DL Albumin 3.4 GM/DL Calcium Level 8.9 MG/DL Alkaline Phosphatase 75 U/L Aspartate Amino Transf (AST/SGOT) 17 U/L Alanine Aminotransferase (ALT/SGPT) 24 U/L Total Bilirubin 0.4 MG/DL Sodium Level 141 MEQ/L Potassium Level 3.5 MEQ/L Chloride Level 109 MEQ/L Carbon Dioxide Level 25.3 MEQ/L Anion Gap 7 MEQ/L Estimat Glomerular Filtration Rate 127 ML/MIN Salicylates Level 2.2 MG/DL Urine Opiates Screen NEG Acetaminophen Level LESS THAN 2.0 MCG/ML Urine Barbiturates Screen NEG Urine Amphetamines Screen NEG Urine Benzodiazepines Screen NEG Urine Cocaine Screen POS Urine Cannabinoids Screen POS Ethyl Alcohol Level LESS THAN 3 MG/DL MDM Supervised Visit with JEAN: No Narrative Course Dr. Alexander has evaluated this patient and lifted the Brandt act and the patient will be discharged home. This patient is well-known to the emergency department /psych department and is here frequently according to [facility], RNs report Dr. Alexander has offered the patient presents with medication and the patient is refusing the prescription. He has follow-up at [facility] and other community resources. Patient denies suicidal or homicidal ideations at this time. Patient is medically cleared first discharge. Diagnosis Primary Impression: Acute psychosis Additional Impression: Polysubstance abuse [facility] Patient Instructions: Abuse of Alcohol (ED), Alcohol Dependence (ED), Alcohol Intoxication (ED), General Instructions, Medical Clearance for Substance Abuse Treatment (ED), Mood Disorders (ED) Additional Instruction: Follow-up with primary care provider Follow-up with psychiatry Follow-up with [facility] Return to the emergency department immediately with worsening of symptoms Med/Other Pt SpecificInfo: No Meds Exist/No RX given Scripts No Active Prescriptions or Reported Meds Disposition: 01 DISCHARGE HOME Condition: Stable Charmaine Winters Dec 15, 2016 09:52
--- NOTE | 2016-12-15 10:05 | PD ---
History of Present Illness Chief Complaint: Psychiatric Symptoms Time Seen by Provider: 09:45 Travel History International Travel<30 Days: No Contact w/Intl Traveler<30days: No Known affected area: No Legal Status Legal Status: Brandt Act Brandt Act Signed By: Remberto Real History of Present Illness: 36-year-old male, well known to this physician and the psychiatry emergency department staff, presents under a Brandt act for making suicidal threats and complaining of hearing voices. Patient noted to once again be positive for cannabis and cocaine. Patient admitted he has been noncompliant with psychotropic medicines prescribed for him in the past by physicians that [facility] and staff at [facility]. This physician offered to refill the patient's medicines but referred him for substance abuse, once again, to [facility]. Although the patient is not threatening suicide at this time, he was immediately angry when this physician told him that he would not be hospitalized for psychiatric purposes but rather referred for drug treatment. At that time he wanted to leave and did not want prescriptions. PFSH Past Medical History Arthritis: No Asthma: No Autoimmune Disease: No Blood Disorders: No Anxiety: No Depression: Yes Heart Rhythm Problems: Yes Cancer: No Cardiovascular Problems: Yes High Cholesterol: No Chest Pain: No Congestive Heart Failure: No COPD: No Cerebrovascular Accident: No Diabetes: No Diminished Hearing: No Endocrine: No GERD: No Glaucoma: No Genitourinary: No Headaches: No Hepatitis: No Hiatal Hernia: No Hypertension: No Immune Disorder: No Implanted Vascular Access Dvce: Yes Musculoskeletal: No Neurologic: No Psychiatric: Yes (Schizophrenia) Reproductive: No Respiratory: No Immunizations Current: No Migraines: No Myocardial Infarction: No Schizophrenia: Yes Seizures: No Sleep Apnea: No Ulcer: No Past Surgical History Abdominal Surgery: No AICD: No Appendectomy: No Body Medical Devices: Facial plate Cardiac Surgery: No Cholecystectomy: No Ear Surgery: Yes Endocrine Surgery: No Genitourinary Surgery: No Gynecologic Surgery: No Neurologic Surgery: No Oral Surgery: Yes ( Facial plate) Pacemaker: No Thoracic Surgery: No Other Surgery: Yes (plate in face) Psychiatric History Psychiatric History Hx Psychiatric Treatment: Pt has history of inpatient psychiatric hospitalizations including visits to [facility], [facility], [place] and facilities in [place]. He has a history of outpatient psychiatric services through [facility] but he has been noncompliant with medication and appointments. WAS ADMITTED TO [facility] ON November TO THE History of Inpatient Treatment: Yes Guns or firearms in home: No Social History Hx Alcohol Use: Yes Hx Tobacco Use: Yes Hx Substance Use: Yes (CRACK,Cocaine, Marijuana, K2) Substance Use Type: Crack, Marijuana Other Substances Used: HX OF CRACK PER RECORDS Hx of Substance Use Treatment: Yes Allergies-Medications (Allergen,Severity, Reaction): Coded Allergies: shellfish derived (Unverified Allergy, Severe, EDEMA, HIVES, 12/12/16) Reported Meds & Prescriptions Reported Meds & Active Scripts Active No Active Prescriptions or Reported Medications Review of Systems Except as stated in HPI: all other systems reviewed are Neg Exam Alert: Yes [place]: Person, Place, Date, Situation Mood: Angry Affect: Other Speech: Clear Eye Contact: Normal Memory Intact: Immediate, Recent, Remote Hallucinations: Other Insight/Judgement Adequate MDM Medical Decision Making Medical Record Reviewed: Yes Assessment/Plan Patient interviewed at bedside, case discussed with nurse and [facility] [place] will liaison (Kevin). Patient was given a bus pass but was not happy that he did not receive multiple passes. (Kevin concerned patient is selling bus passes to obtain drugs.) This physician is well aware the patient may act out to hurt himself or others as a form of manipulation. However, this risk cannot be avoided and is unpredictable. Patient is felt to be competent to make decisions. Patient continues to use illicit drugs rather than take his medications and go to follow up treatment. This physician feels it is counter therapeutic to enable this behavior and therefore is simply willing to provide psychiatric prescriptions at this time. Orders Orders Diet Regular Basic (12/14/16 Lunch) Diet Regular Basic (12/15/16 Breakfast) Results Vital Signs Date Time Temp Pulse Resp B/P (MAP) Pulse Ox O2 Delivery O2 Flow Rate FiO2 12/15/16 02:32 67 18 134/85 (101) 98 12/14/16 22:08 60 18 108/69 (82) 98 Room Air Diagnosis Primary Impression: Cocaine abuse Additional Impression: Cannabis abuse Prescriptions No Active Prescriptions or Reported Meds Condition: Stable Problem Qualifiers Romeo Alexander MD Dec 15, 2016 10:05
[2016-12-15 10:17] VITALS: BP 134/85
== END 2016-12-15 10:20 | disposition home or self-care (01) ==
LOC: NEPD 08:37 → NEPJ 12-15 10:20
DX: F23 Brief psychotic disorder (principal); F14.10 Cocaine abuse, uncomplicated; F12.10 Cannabis abuse, uncomplicated; Z72.0 Tobacco use
CPT/HCPCS: 80053; 80307; 81001; 85025; 99284

== ENCOUNTER 2016-12-17 22:29 | Emergency (ER) | payer SELFPAY ==
[~2016-12-17] VITALS: Ht 180.3 cm; Wt 82.0 kg
[~2016-12-17 22:29] MED LIST changes: -HALO5TAB PO
[2016-12-17 22:31] VITALS: BP 130/82; PULSE 66; RESP 16; TEMP 98.1; O2SAT 99
--- NOTE | 2016-12-17 23:48 | PD ---
HPI Chief Complaint: Psychiatric Symptoms Time Seen by Provider: 23:45 Travel History International Travel<30 days: No Contact w/Intl Traveler<30days: No Traveled to known affect area: No History of Present Illness HPI Patient is a 36-year-old male presents emergency department for psychiatric evaluation as he states his hearing voices. He is wearing paper scrubs. Quite elevated affect but does not want to discuss very much of what's going on with him. He is pacing the room, relentless almost sinister smile. He denies any physical complaints denies chest pain short of breath abdominal pain nausea vomiting. He is requesting things to wash himself with. Given the elevation of his affect and his psychosis his history is fairly limited. I reviewed his recent admission on December 14 that time the patient was evaluated by Dr. Alexander, direct quote as follows from his evaluation in the chart : Patient was given a bus pass but was not happy that he did not receive multiple passes. ([[place] liaison] is concerned patient is selling bus passes to obtain drugs.) This physician is well aware the patient may act out to hurt himself or others as a form of manipulation. However this risk cannot be avoided and is unpredictable. Patient is felt to be competent to make decisions. Patient continues to use illicit drugs rather than take his medications and go to follow-up treatment. This physician feels it is counter therapeutic to enable this behavior and therefore is simply willing to provide psychiatric prescriptions at this time. PFSH Past Medical History Arthritis: No Asthma: No Autoimmune Disease: No Blood Disorders: No Anxiety: No Depression: Yes Heart Rhythm Problems: Yes Cancer: No Cardiovascular Problems: Yes High Cholesterol: No Chest Pain: No Congestive Heart Failure: No COPD: No Cerebrovascular Accident: No Diabetes: No Diminished Hearing: No Endocrine: No GERD: No Glaucoma: No Genitourinary: No Headaches: No Hepatitis: No Hiatal Hernia: No Hypertension: No Immune Disorder: No Implanted Vascular Access Dvce: Yes Musculoskeletal: No Neurologic: No Psychiatric: Yes (Schizophrenia) Reproductive: No Respiratory: No Immunizations Current: No Migraines: No Myocardial Infarction: No Schizophrenia: Yes Seizures: No Sleep Apnea: No Ulcer: No Past Surgical History Abdominal Surgery: No AICD: No Appendectomy: No Body Medical Devices: Facial plate Cardiac Surgery: No Cholecystectomy: No Ear Surgery: Yes Endocrine Surgery: No Genitourinary Surgery: No Gynecologic Surgery: No Neurologic Surgery: No Oral Surgery: Yes ( Facial plate) Pacemaker: No Thoracic Surgery: No Other Surgery: Yes (plate in face) Social History Alcohol Use: Yes Tobacco Use: Yes Substance Use: Yes (CRACK,Cocaine, Marijuana, K2) Allergies-Medications (Allergen,Severity, Reaction): Coded Allergies: shellfish derived (Unverified Allergy, Severe, EDEMA, HIVES, 12/17/16) Reported Meds & Prescriptions Reported Meds & Active Scripts Active No Active Prescriptions or Reported Medications Review of Systems ROS Limitations: Psychotic Physical Exam Narrative GENERAL: Well-developed, tall, pacing the room. SKIN: Focused skin assessment warm/dry. HEAD: Atraumatic. Normocephalic. EYES: Pupils equal and round. No scleral icterus. No injection or drainage. ENT: No nasal bleeding or discharge. Mucous membranes pink and moist. NECK: Trachea midline. No JVD. CARDIOVASCULAR: Regular rate and rhythm. No murmur appreciated. RESPIRATORY: No accessory muscle use. Clear to auscultation. Breath sounds equal bilaterally. GASTROINTESTINAL: Abdomen soft, non-tender, nondistended. Hepatic and splenic margins not palpable. MUSCULOSKELETAL: No obvious deformities. No clubbing. No cyanosis. No edema. NEUROLOGICAL: Awake and alert. No obvious cranial nerve deficits. Motor grossly within normal limits. Normal speech. PSYCHIATRIC: Elevated affect, unwilling or unable to provide history. Clearly psychotic. Maybe substance abuse and given his history probably is. Endorses suicidal and homicidal ideation. Endorses audio hallucinations. Denies visual hallucinations per Data Data Last Documented VS Vital Signs Date Time Temp Pulse Resp B/P (MAP) Pulse Ox O2 Delivery O2 Flow Rate FiO2 12/17/16 22:31 98.1 66 16 130/82 (98) 99 Room Air Orders Orders Complete Blood Count With Diff (12/18/16 00:04) Comprehensive Metabolic Panel (12/18/16 00:04) Psych Screen (12/18/16 00:04) Drug Screen, Random Urine (12/18/16 00:04) Alcohol (Ethanol) (12/18/16 00:04) [facility] Medical Decision Making Medical Screen Exam Complete: Yes Emergency Medical Condition: Yes Differential Diagnosis Psychosis, schizophrenia, drug induced psychosis. Narrative Course Patient roomed emergency department, this provider feels that the patient is gravely disabled and is probably a threat to himself and others. I do not feel that I can safely discharge him without a psychiatric consult. I do not think that he is appropriate to make his own decisions at this time. Therefore I placed him under a Brandt act. Patient has no medical complaints that warrant further workup at this time, basic labs been ordered. He is medically cleared for psychiatric evaluation and disposition. Diagnosis Primary Impression: Acute psychosis Scripts No Active Prescriptions or Reported Meds Condition: Heriberto Boyd MD Dec 17, 2016 23:48
[2016-12-18 01:09] LABS: AUTOMATED NEUTROPHIL # 2.1 TH/MM3 (1.8-7.7); BASOPHIL # 0.1 TH/MM3 (0-0.2); BASOPHIL % 1.1 % (0.0-2.0); EOSINOPHIL # 0.3 TH/MM3 (0-0.4); HEMO FLAGS DIFF FINAL; LYMPHOCYTE # 2.2 TH/MM3 (1.0-4.8); MEAN CELL VOLUME 90.2 FL (80.0-100.0); MEAN CORPUSCULAR HEMOGLOBIN 28.8 PG (27.0-34.0); MEAN CORPUSCULAR HGB CONC 31.9 % (32.0-36.0); MONO % 7.4 % (0.0-8.0); NEUT % 41.5 % (16.0-70.0); PLATELET COUNT 216 TH/MM3 (150-450); RED BLOOD COUNT 4.32 MIL/MM3 (4.50-5.90); RED CELL DISTRIBUTION WIDTH 15.9 % (11.6-17.2); WHITE BLOOD COUNT 5.1 TH/MM3 (4.0-11.0)
[2016-12-18 01:35] LABS: ALT (GPT) 24 U/L (12-78); ANION GAP 5 MEQ/L (5-15); AST (GOT) 17 U/L (15-37); BICARBONATE 28.5 MEQ/L (21.0-32.0); BLOOD UREA NITROGEN 12 MG/DL (7-18); CHLORIDE 108 MEQ/L (98-107); GLOMERULAR FILTRATION RATE 94 ML/MIN (>89); POTASSIUM 3.6 MEQ/L (3.5-5.1); SODIUM (NA) 141 MEQ/L (136-145)
[2016-12-18 01:36] LABS: ALCOHOL LESS THAN 3 MG/DL (0-5)
[2016-12-18 01:37] LABS: ALKALINE PHOSPHATASE 73 U/L (45-117); TOTAL BILIRUBIN ADULT 0.3 MG/DL (0.2-1.0)
[2016-12-18 02:17] VITALS: RESP 18
[2016-12-18 06:34] VITALS: BP 169/64; PULSE 103; RESP 18; O2SAT 96
[2016-12-18 09:56] VITALS: BP 141/74; PULSE 97; RESP 20
--- NOTE | 2016-12-18 15:02 | PD ---
History of Present Illness Chief Complaint: Psychiatric Symptoms Time Seen by Provider: 14:45 Travel History International Travel<30 Days: No Contact w/Intl Traveler<30days: No Known affected area: No Legal Status Legal Status: Brandt Act Brandt Act Signed By: DR TU Brandt Act Comment: PATIENT WAS PLACED UNDER A BRANDT ACT BY: DR TU MD IN THE ED History of Present Illness: 36-year-old male, well known to this physician and the ED staff, brought in under a Brandt act for self-reported psychiatric symptoms with suicidal ideation. Patient is once again positive for cocaine and cannabis. He admits to smoking marijuana. He admits to frequent use of cocaine. This physician feels the patient does not have a primary diagnosis of mental illness at this time and that the patient's noncompliance with treatment and medication is directly related to his competent choice of using drugs. Even though the patient is at constant risk of acting out and causing harm to himself or others , this risk cannot be avoided and is unpredictable. He is once again being referred to [facility] for drug abuse treatment even though he often decides not to do so. The patient is competent to decline drug abuse treatment but he is also responsible for the choices that he makes for himself and others. At this time there is no suicidal or homicidal ideation, plan or intent. However, that can change from moment to moment. The patient is not exhibiting any significant objective clinical symptoms of psychosis. His cognition is intact. PFSH Past Medical History Arthritis: No Asthma: No Autoimmune Disease: No Blood Disorders: No Anxiety: No Depression: Yes Heart Rhythm Problems: Yes Cancer: No Cardiovascular Problems: Yes High Cholesterol: No Chest Pain: No Congestive Heart Failure: No COPD: No Cerebrovascular Accident: No Diabetes: No Diminished Hearing: No Endocrine: No GERD: No Glaucoma: No Genitourinary: No Headaches: No Hepatitis: No Hiatal Hernia: No Hypertension: No Immune Disorder: No Implanted Vascular Access Dvce: Yes Musculoskeletal: No Neurologic: No Psychiatric: Yes (Schizophrenia) Reproductive: No Respiratory: No Immunizations Current: No Migraines: No Myocardial Infarction: No Schizophrenia: Yes Seizures: No Sleep Apnea: No Ulcer: No Past Surgical History Abdominal Surgery: No AICD: No Appendectomy: No Body Medical Devices: Facial plate Cardiac Surgery: No Cholecystectomy: No Ear Surgery: Yes Endocrine Surgery: No Genitourinary Surgery: No Gynecologic Surgery: No Neurologic Surgery: No Oral Surgery: Yes ( Facial plate) Pacemaker: No Thoracic Surgery: No Other Surgery: Yes (plate in face) Psychiatric History Psychiatric History Hx Psychiatric Treatment: Pt has a history of inpatient psychiatric hospitalizations including visits to [facility], [facility], [place] and facilities in [place]. He has a history of outpatient psychiatric services through [facility] but he has been noncompliant with medication and appointments. This physician does not currently find any significant clinically objective evidence of a major mental illness. The patient does have a problem with substance abuse. History of Inpatient Treatment: Yes Guns or firearms in home: No Social History Hx Alcohol Use: Yes Hx Tobacco Use: Yes Hx Substance Use: Yes (CRACK,Cocaine, Marijuana, K2) Substance Use Type: Crack, Marijuana Other Substances Used: HX OF CRACK PER RECORDS Hx of Substance Use Treatment: Yes Allergies-Medications (Allergen,Severity, Reaction): Coded Allergies: shellfish derived (Unverified Allergy, Severe, EDEMA, HIVES, 12/17/16) Reported Meds & Prescriptions Reported Meds & Active Scripts Active No Active Prescriptions or Reported Medications Review of Systems Except as stated in HPI: all other systems reviewed are Neg Exam Alert: Yes [place]: Person, Place, Date, Situation Mood: Calm Affect: Appropriate Speech: Clear, Logical Eye Contact: Normal Memory Intact: Immediate, Recent, Remote Insight/Judgement Adequate MDM Medical Decision Making Medical Record Reviewed: Yes Assessment/Plan Patient interviewed at bedside with nurse Andrews, medical record reviewed, and case discussed with nurse. This physician does not find the patient to be truthful or credible regarding his complaints of hallucinations, delusions, or suicidality. Instead, the patient has been here multiple times and attempts to manipulate for food, long-term, etc. This physician is once again referring the patient to [facility] for treatment. It is counter therapeutic to get into the patient's manipulations. If the patient truly wants help with his drug abuse, he needs to seek and accept treatment at [facility]. Orders Orders Complete Blood Count With Diff (12/18/16 00:04) Comprehensive Metabolic Panel (12/18/16 00:04) Psych Screen (12/18/16 00:04) Drug Screen, Random Urine (12/18/16 00:04) Alcohol (Ethanol) (12/18/16 00:04) Diet Regular Basic (12/18/16 Breakfast) Diet Regular Basic (12/18/16 Lunch) Results Vital Signs Date Time Temp Pulse Resp B/P (MAP) Pulse Ox O2 Delivery O2 Flow Rate FiO2 12/18/16 09:56 97 20 141/74 (96) Room Air 12/18/16 06:34 103 18 169/64 (99) 96 Room Air 12/18/16 02:17 18 12/17/16 22:31 98.1 66 16 130/82 (98) 99 Room Air Laboratory Tests Test 12/18/16 00:45 White Blood Count 5.1 Red Blood Count 4.32 Hemoglobin 12.4 Hematocrit 39.0 Mean Corpuscular Volume 90.2 Mean Corpuscular Hemoglobin 28.8 Mean Corpuscular Hemoglobin Concent 31.9 Red Cell Distribution Width 15.9 Platelet Count 216 Mean Platelet Volume 8.9 Neutrophils (%) (Auto) 41.5 Lymphocytes (%) (Auto) 44.0 Monocytes (%) (Auto) 7.4 Eosinophils (%) (Auto) 6.0 Basophils (%) (Auto) 1.1 Neutrophils # (Auto) 2.1 Lymphocytes # (Auto) 2.2 Monocytes # (Auto) 0.4 Eosinophils # (Auto) 0.3 Basophils # (Auto) 0.1 CBC Comment DIFF FINAL Differential Comment Blood Urea Nitrogen 12 Creatinine 1.07 Random Glucose 84 Total Protein 7.2 Albumin 3.6 Calcium Level 8.8 Alkaline Phosphatase 73 Aspartate Amino Transf (AST/SGOT) 17 Alanine Aminotransferase (ALT/SGPT) 24 Total Bilirubin 0.3 Sodium Level 141 Potassium Level 3.6 Chloride Level 108 Carbon Dioxide Level 28.5 Anion Gap 5 Estimat Glomerular Filtration Rate 94 Urine Opiates Screen NEG Urine Barbiturates Screen NEG Urine Amphetamines Screen NEG Urine Benzodiazepines Screen NEG Urine Cocaine Screen POS Urine Cannabinoids Screen POS Ethyl Alcohol Level LESS THAN 3 Diagnosis Primary Impression: Adjustment disorder with mixed disturbance of emotions and conduct Additional Impression: Cocaine abuse Prescriptions No Active Prescriptions or Reported Meds Condition: Stable Problem Qualifiers Romeo Alexander MD Dec 18, 2016 15:02
--- NOTE | 2016-12-18 15:20 | PD ---
Physical Exam Date Seen by Provider: Dec 18, 2016 Narrative For full history and physical examination please see previous provider's notes. Data Data Last Documented VS Vital Signs Date Time Temp Pulse Resp B/P (MAP) Pulse Ox O2 Delivery O2 Flow Rate FiO2 12/18/16 09:56 97 20 141/74 (96) Room Air 12/18/16 06:34 96 12/17/16 22:31 98.1 Orders Orders Complete Blood Count With Diff (12/18/16 00:04) Comprehensive Metabolic Panel (12/18/16 00:04) Psych Screen (12/18/16 00:04) Drug Screen, Random Urine (12/18/16 00:04) Alcohol (Ethanol) (12/18/16 00:04) Diet Regular Basic (12/18/16 Breakfast) Diet Regular Basic (12/18/16 Lunch) Labs Laboratory Tests Test 12/18/16 00:45 White Blood Count 5.1 TH/MM3 Red Blood Count 4.32 MIL/MM3 Hemoglobin 12.4 GM/DL Hematocrit 39.0 % Mean Corpuscular Volume 90.2 FL Mean Corpuscular Hemoglobin 28.8 PG Mean Corpuscular Hemoglobin Concent 31.9 % Red Cell Distribution Width 15.9 % Platelet Count 216 TH/MM3 Mean Platelet Volume 8.9 FL Neutrophils (%) (Auto) 41.5 % Lymphocytes (%) (Auto) 44.0 % Monocytes (%) (Auto) 7.4 % Eosinophils (%) (Auto) 6.0 % Basophils (%) (Auto) 1.1 % Neutrophils # (Auto) 2.1 TH/MM3 Lymphocytes # (Auto) 2.2 TH/MM3 Monocytes # (Auto) 0.4 TH/MM3 Eosinophils # (Auto) 0.3 TH/MM3 Basophils # (Auto) 0.1 TH/MM3 CBC Comment DIFF FINAL Differential Comment Blood Urea Nitrogen 12 MG/DL Creatinine 1.07 MG/DL Random Glucose 84 MG/DL Total Protein 7.2 GM/DL Albumin 3.6 GM/DL Calcium Level 8.8 MG/DL Alkaline Phosphatase 73 U/L Aspartate Amino Transf (AST/SGOT) 17 U/L Alanine Aminotransferase (ALT/SGPT) 24 U/L Total Bilirubin 0.3 MG/DL Sodium Level 141 MEQ/L Potassium Level 3.6 MEQ/L Chloride Level 108 MEQ/L Carbon Dioxide Level 28.5 MEQ/L Anion Gap 5 MEQ/L Estimat Glomerular Filtration Rate 94 ML/MIN Urine Opiates Screen NEG Urine Barbiturates Screen NEG Urine Amphetamines Screen NEG Urine Benzodiazepines Screen NEG Urine Cocaine Screen POS Urine Cannabinoids Screen POS Ethyl Alcohol Level LESS THAN 3 MG/DL [facility] Medical Record Reviewed: Yes Supervised Visit with JEAN: Yes Interpretation(s) Laboratory Tests Test 12/18/16 00:45 White Blood Count 5.1 TH/MM3 Red Blood Count 4.32 MIL/MM3 Hemoglobin 12.4 GM/DL Hematocrit 39.0 % Mean Corpuscular Volume 90.2 FL Mean Corpuscular Hemoglobin 28.8 PG Mean Corpuscular Hemoglobin Concent 31.9 % Red Cell Distribution Width 15.9 % Platelet Count 216 TH/MM3 Mean Platelet Volume 8.9 FL Neutrophils (%) (Auto) 41.5 % Lymphocytes (%) (Auto) 44.0 % Monocytes (%) (Auto) 7.4 % Eosinophils (%) (Auto) 6.0 % Basophils (%) (Auto) 1.1 % Neutrophils # (Auto) 2.1 TH/MM3 Lymphocytes # (Auto) 2.2 TH/MM3 Monocytes # (Auto) 0.4 TH/MM3 Eosinophils # (Auto) 0.3 TH/MM3 Basophils # (Auto) 0.1 TH/MM3 CBC Comment DIFF FINAL Differential Comment Blood Urea Nitrogen 12 MG/DL Creatinine 1.07 MG/DL Random Glucose 84 MG/DL Total Protein 7.2 GM/DL Albumin 3.6 GM/DL Calcium Level 8.8 MG/DL Alkaline Phosphatase 73 U/L Aspartate Amino Transf (AST/SGOT) 17 U/L Alanine Aminotransferase (ALT/SGPT) 24 U/L Total Bilirubin 0.3 MG/DL Sodium Level 141 MEQ/L Potassium Level 3.6 MEQ/L Chloride Level 108 MEQ/L Carbon Dioxide Level 28.5 MEQ/L Anion Gap 5 MEQ/L Estimat Glomerular Filtration Rate 94 ML/MIN Urine Opiates Screen NEG Urine Barbiturates Screen NEG Urine Amphetamines Screen NEG Urine Benzodiazepines Screen NEG Urine Cocaine Screen POS Urine Cannabinoids Screen POS Ethyl Alcohol Level LESS THAN 3 MG/DL Vital Signs Date Time Temp Pulse Resp B/P (MAP) Pulse Ox O2 Delivery O2 Flow Rate FiO2 12/18/16 09:56 97 20 141/74 (96) Room Air 12/18/16 06:34 103 18 169/64 (99) 96 Room Air 12/18/16 02:17 18 12/17/16 22:31 98.1 66 16 130/82 (98) 99 Room Air Narrative Course Patient was initially seen and evaluated in the emergency department, he was medically cleared by ER physician. Patient was then seen and evaluated by psychiatrist who lifted a Brandt act and deemed him appropriate for discharge. Patient is to follow-up at [facility] as advised by Dr. Alexander. Patient stable for discharge. Diagnosis Primary Impression: Adjustment disorder with mixed disturbance of emotions and conduct Additional Impression: Cocaine abuse Referrals: [facility] Patient Instructions: General Instructions Additional Instruction: Follow-up at [facility] Return to emergency department for any new or worsening symptoms Avoid the use of illicit drugs like cocaine Med/Other Pt SpecificInfo: No Change to Meds Scripts No Active Prescriptions or Reported Meds Disposition: 01 DISCHARGE HOME Condition: Stable María Dominguez Dec 18, 2016 15:20
[2016-12-18 16:01] VITALS: BP 141/74; TEMP 98.2
== END 2016-12-18 16:04 | disposition home or self-care (01) ==
LOC: NEPD 22:29 → NEPJ 12-18 16:04
DX: F23 Brief psychotic disorder (principal); F43.25 Adjustment disorder with mixed disturbance of emotions and conduct; F14.10 Cocaine abuse, uncomplicated; Z72.0 Tobacco use; Z86.59 Personal history of other mental and behavioral disorders; Z86.79 Personal history of other diseases of the circulatory system
CPT/HCPCS: 80053; 80307; 85025; 99284

== ENCOUNTER 2016-12-19 02:05 | Emergency (ER) | payer OTHER ==
--- NOTE | 2016-12-19 02:34 | PD ---
HPI Chief Complaint: Psychiatric Symptoms Time Seen by Provider: 02:32 Travel History International Travel<30 days: No Contact w/Intl Traveler<30days: No Traveled to known affect area: No History of Present Illness HPI 36-year-old male with history of schizophrenia disorder, polysubstance abuse, presents to emergency department under Brandt act for psychiatric evaluation. Patient was discharged yesterday after psychiatric evaluation. Patient has been here several times. He is homeless. He does not answer any of my questions this evening. He will not allow which to my assessment. Per the Brandt act, he told the police aide that he wanted to kill himself. PFSH Past Medical History Arthritis: No Asthma: No Autoimmune Disease: No Blood Disorders: No Anxiety: No Depression: Yes Heart Rhythm Problems: Yes Cancer: No Cardiovascular Problems: Yes High Cholesterol: No Chest Pain: No Congestive Heart Failure: No COPD: No Cerebrovascular Accident: No Diabetes: No Diminished Hearing: No Endocrine: No GERD: No Glaucoma: No Genitourinary: No Headaches: No Hepatitis: No Hiatal Hernia: No Hypertension: No Immune Disorder: No Implanted Vascular Access Dvce: Yes Musculoskeletal: No Neurologic: No Psychiatric: Yes (Schizophrenia) Reproductive: No Respiratory: No Immunizations Current: No Migraines: No Myocardial Infarction: No Schizophrenia: Yes Seizures: No Sleep Apnea: No Ulcer: No Past Surgical History Abdominal Surgery: No AICD: No Appendectomy: No Body Medical Devices: Facial plate Cardiac Surgery: No Cholecystectomy: No Ear Surgery: Yes Endocrine Surgery: No Genitourinary Surgery: No Gynecologic Surgery: No Neurologic Surgery: No Oral Surgery: Yes ( Facial plate) Pacemaker: No Thoracic Surgery: No Other Surgery: Yes (plate in face) Social History Alcohol Use: Yes Tobacco Use: Yes Substance Use: Yes (CRACK,Cocaine, Marijuana, K2) Allergies-Medications (Allergen,Severity, Reaction): Coded Allergies: shellfish derived (Unverified Allergy, Severe, EDEMA, HIVES, 12/17/16) Reported Meds & Prescriptions Reported Meds & Active Scripts Active No Active Prescriptions or Reported Medications Review of Systems ROS Limitations: Uncooperative Physical Exam Exam Limitations: Uncooperative Narrative Physical exam is limited due to patient refusal to let me assess him. He is lying in the bed in the psychiatric pod. He opens his eyes when I say his name. He holds the blankets up to his chin. He appears without distress. Data Data Last Documented VS Vital Signs Date Time Temp Pulse Resp B/P (MAP) Pulse Ox O2 Delivery O2 Flow Rate FiO2 12/19/16 03:04 98.1 69 17 147/80 (102) 100 Room Air MDM Medical Decision Making Medical Screen Exam Complete: Yes Emergency Medical Condition: Yes Medical Record Reviewed: Yes Differential Diagnosis Malingering versus mood disorder versus personality disorder versus substance abuse Narrative Course 36-year-old male presents to emergency department under Brandt act for psychiatric evaluation. Patient has had several visits to the [facility] department and seen by psychiatry most of those times. Patient is homeless. There is high suspicion that he is malingering. Patient's physical exam was limited due to refusal to allow me to physically assess him. He does not appear in any distress. His lab work was drawn yesterday and without acute concern. Patient is refusing vital signs. He is medically cleared to undergo psychiatric screening for further evaluation and disposition. Mental health screening discussed with the patient. Psychiatric screen ordered. Diagnosis Primary Impression: Malingering Additional Impressions: Schizoaffective disorder Qualified Codes: F25.9 - Schizoaffective disorder, unspecified Polysubstance abuse Scripts No Active Prescriptions or Reported Meds Condition: Maryanne Nguyen Dec 19, 2016 02:34
[2016-12-19 03:04] VITALS: BP 147/80; PULSE 69; RESP 17; TEMP 98.1; O2SAT 100
--- NOTE | 2016-12-19 13:03 | PD ---
Physical Exam Time Seen by Provider: 12:[address] Bañuelos has evaluated the patient and lifted the Brandt act and the patient will be discharged home. Data Data Last Documented VS Vital Signs Date Time Temp Pulse Resp B/P (MAP) Pulse Ox O2 Delivery O2 Flow Rate FiO2 12/19/16 06:27 12/19/16 03:04 98.1 69 17 100 Room Air Orders Orders Psych Screen (12/19/16 04:04) Diet Regular Basic (12/19/16 Breakfast) Diet 1800 Ada Cons Carb (12/19/16 Lunch) MDM Supervised Visit with JEAN: No Narrative Course Dr. Bañuelos has evaluated the patient and lifted the Brandt act and the patient will be discharged home. Patient contracts safety. Denies suicidal or homicidal ideations. Patient will be provided information to follow-up at [facility]. Patient has family and friends for support. Patient is medically cleared for discharge. Diagnosis Primary Impression: Malingering Additional Impressions: Schizoaffective disorder Qualified Codes: F25.9 - Schizoaffective disorder, unspecified Polysubstance abuse Referrals: Primary Care Physician [facility] Patient Instructions: Cocaine Abuse (ED), General Instructions, Mood Disorders (ED), Polysubstance Abuse (ED), Schizoaffective Disorder (ED) Additional Instruction: Contract safety to your self and others Follow-up with psychiatry Follow-up with primary care provider [facility] Return to the emergency department immediately with worsening of symptoms Med/Other Pt SpecificInfo: No Meds Exist/No RX given Scripts No Active Prescriptions or Reported Meds Disposition: 01 DISCHARGE HOME Condition: Stable Charmaine Winters Dec 19, 2016 13:03
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
== END 2016-12-19 13:30 | disposition home or self-care (01) ==
LOC: NEPJ 02:05
DX: F25.0 Schizoaffective disorder, bipolar type (principal); F14.10 Cocaine abuse, uncomplicated; Z76.5 Malingerer [conscious simulation]
CPT/HCPCS: 99283

== ENCOUNTER 2016-12-22 01:28 | Emergency (ER) | payer OTHER ==
[~2016-12-22] VITALS: Ht 185.4 cm; Wt 90.0 kg
[2016-12-22 01:45] VITALS: BP 145/94; PULSE 74; RESP 20; TEMP 98.2; O2SAT 98
[2016-12-22] MEDS ORDERED: diphenhydrAMINE HCL 50 MG/ML VIAL IM ONE (01:45)
[2016-12-22] MEDS ORDERED: ZIPRASIDONE MESYLATE 20 MG VIAL IM ONE (01:45)
[2016-12-22 01:52] VITALS: BP 145/94; PULSE 74; TEMP 98.1; O2SAT 98
--- NOTE | 2016-12-22 02:04 | PD ---
HPI Chief Complaint: Psychiatric Symptoms Time Seen by Provider: 01:35 Travel History International Travel<30 days: No Contact w/Intl Traveler<30days: No Traveled to known affect area: No History of Present Illness HPI 36-year-old black male presents to emergency department under Brandt act by PD. This is a patient well-known to the ER staff for multiple visits. He has a history of polysubstance abuse. He typically smokes crack cocaine and marijuana. The patient had made suicidal statements. PFSH Past Medical History Arthritis: No Asthma: No Autoimmune Disease: No Blood Disorders: No Anxiety: No Depression: Yes Heart Rhythm Problems: Yes Cancer: No High Cholesterol: No Chest Pain: No Congestive Heart Failure: No COPD: No Cerebrovascular Accident: No Diabetes: No Diminished Hearing: No Endocrine: No Gastrointestinal Disorders: No GERD: No Glaucoma: No Genitourinary: No Headaches: No Hepatitis: No Hiatal Hernia: No Hypertension: No Immune Disorder: No Implanted Vascular Access Dvce: Yes Musculoskeletal: No Neurologic: No Psychiatric: Yes (Schizophrenia) Reproductive: No Respiratory: No Immunizations Current: No Migraines: No Myocardial Infarction: No Schizophrenia: Yes Seizures: No Sleep Apnea: No Ulcer: No Past Surgical History Abdominal Surgery: No AICD: No Appendectomy: No Body Medical Devices: Facial plate Cardiac Surgery: No Cholecystectomy: No Ear Surgery: Yes Endocrine Surgery: No Genitourinary Surgery: No Gynecologic Surgery: No Neurologic Surgery: No Oral Surgery: Yes ( Facial plate) Pacemaker: No Thoracic Surgery: No Other Surgery: Yes (plate in face) Social History Alcohol Use: Yes Tobacco Use: Yes Substance Use: Yes (crack, cocaine, marijuana, K2) Allergies-Medications (Allergen,Severity, Reaction): Coded Allergies: shellfish derived (Unverified Allergy, Severe, EDEMA, HIVES, 12/22/16) Reported Meds & Prescriptions Reported Meds & Active Scripts Active Active Prescriptions or Reported Medications Unobtainable Review of Systems Except as stated in HPI: all other systems reviewed are Neg Physical Exam Narrative GENERAL: Well-nourished, well-developed patient. SKIN: Warm and dry. HEAD: Normocephalic and atraumatic. EYES: No scleral icterus. No injection or drainage. ENT: No nasal drainage noted. Mucous membranes pink. Airway patent. NECK: Supple, trachea midline. Moves head freely without obvious discomfort. CARDIOVASCULAR: Regular rate and rhythm without murmurs, gallops, or rubs. RESPIRATORY: Breath sounds equal bilaterally. No accessory muscle use. GASTROINTESTINAL: Abdomen soft, non-tender, nondistended. EXTREMITIES: No cyanosis or edema. BACK: Nontender without obvious deformity. No CVA tenderness. NEURO: Patient is alert and oriented. no sensorimotor deficits. Nonfocal. Normal speech. PSYCH: Patient is agitated, inappropriate and bizarre. Data Data Last Documented VS Vital Signs Date Time Temp Pulse Resp B/P (MAP) Pulse Ox O2 Delivery O2 Flow Rate FiO2 12/22/16 01:52 98.1 74 145/94 (111) 98 12/22/16 01:45 20 Orders Orders Psych Screen (12/22/16 01:39) Drug Screen, Random Urine (12/22/16 01:39) Ziprasidone Inj (Geodon Inj) (12/22/16 01:45) Diphenhydramine Inj (Benadryl Inj) (12/22/16 01:45) Labs Laboratory Tests Test 12/22/16 02:00 Urine Opiates Screen NEG Urine Barbiturates Screen NEG Urine Amphetamines Screen NEG Urine Benzodiazepines Screen NEG Urine Cocaine Screen POS Urine Cannabinoids Screen POS MDM Medical Decision Making Medical Screen Exam Complete: Yes Emergency Medical Condition: Yes Medical Record Reviewed: Yes Interpretation(s) Laboratory Tests Test 12/22/16 02:00 Urine Opiates Screen NEG Urine Barbiturates Screen NEG Urine Amphetamines Screen NEG Urine Benzodiazepines Screen NEG Urine Cocaine Screen POS Urine Cannabinoids Screen POS Differential Diagnosis MDM: High Differential diagnoses: Schizophrenia, schizoaffective disorder, bipolar, anxiety, depression, adjustment reaction, mood disorder NOS, psychosis NOS, substance induced mood disorder, infection,electrolyte abnormality, malingering. Narrative Course Mental health screening discussed with the patient. Psychiatric screen ordered. The patient is been medically cleared. Patient is medicated with Geodon 10 mg and Benadryl 50 mg IM. This is medical clearance for psychiatric admission, polysubstance abuse Diagnosis Primary Impression: Medical clearance for psychiatric admission Additional Impression: Polysubstance abuse Scripts Unable to Obtain Active Prescriptions or Reported Meds Condition: Stable Mal Bailey Dec 22, 2016 02:04
--- NOTE | 2016-12-22 14:58 | PD ---
History of Present Illness Chief Complaint: Psychiatric Symptoms Time Seen by Provider: 14:45 Travel History International Travel<30 Days: No Contact w/Intl Traveler<30days: No Known affected area: No Legal Status Legal Status: Brandt Act Brandt Act Signed By: Remberto Real History of Present Illness: History of Present Illness HPI 36-year-old black male with history of cocaine abuse and cocaine induced mood disorder, psychosis, antisocial personality who presents to emergency department under Brandt act by PD. The Brandt act states " Stated he hated Remberto Beaulieu and wants to kill himself". He did not make any specific plan nor did he try to harm himself. This is a patient well-known to the ER staff for multiple visits including 4 visits so far this month. Most visits are in context of substance use and intoxication. He has also presented malingering for [place] [facility]. He has one admission to inpatient psychiatry on November 2016 after he grabbed some tubing from the ED and staed he was going to kill himself. This was a fter he was seen and cleared for discharge. Patient seen. EMR reviewed. Current toxicology is positive for cannabinoids as well as cocaine. Patient presents in usual manner. He is mostly uncooperative with basic medical care. He comes into the unit sleeps well, eats and then requests to be discharge. If his needs aren't met immediately he becomes verbally abusive towards staff. This visit he has been monitored in j [facility] for extended period of time and he did nto present any behaviors or any suciidality. when he was ready to leave he requested a washbasin and proceeded to bathe and changed into [facility]. he did not verbalize any suicidal or homicidal ideation to staff. PFSH Past Medical History Arthritis: No Asthma: No Autoimmune Disease: No Blood Disorders: No Anxiety: No Depression: Yes Heart Rhythm Problems: Yes Cancer: No High Cholesterol: No Chest Pain: No Congestive Heart Failure: No COPD: No Cerebrovascular Accident: No Diabetes: No Diminished Hearing: No Endocrine: No Gastrointestinal Disorders: No GERD: No Glaucoma: No Genitourinary: No Headaches: No Hepatitis: No Hiatal Hernia: No Hypertension: No Immune Disorder: No Implanted Vascular Access Dvce: Yes Musculoskeletal: No Neurologic: No Psychiatric: Yes (Schizophrenia) Reproductive: No Respiratory: No Immunizations Current: No Migraines: No Myocardial Infarction: No Schizophrenia: Yes Seizures: No Sleep Apnea: No Ulcer: No Tetanus Vaccination: Unknown Past Surgical History Surgical History: Unable to Obtain Abdominal Surgery: No AICD: No Appendectomy: No Body Medical Devices: Facial plate Cardiac Surgery: No Cholecystectomy: No Ear Surgery: Yes Endocrine Surgery: No Genitourinary Surgery: No Gynecologic Surgery: No Neurologic Surgery: No Oral Surgery: Yes ( Facial plate) Pacemaker: No Thoracic Surgery: No Other Surgery: Yes (plate in face) Psychiatric History Psychiatric History Hx Psychiatric Treatment: Patient with a hx of schizophrenia and depression. Last inpatient psychiatric admission on unit 27[facility] Nov 21 - 2016 for suicide gesture. Previous inpatient admissions at [facility] and [facility] in [facility]. History of Inpatient Treatment: Yes Social History Hx Alcohol Use: Yes Hx Tobacco Use: Yes Hx Substance Use: Yes (crack, cocaine, marijuana, K2) Substance Use Type: Crack, Marijuana Other Substances Used: HX OF CRACK PER RECORDS Hx of Substance Use Treatment: Yes Allergies-Medications (Allergen,Severity, Reaction): Coded Allergies: shellfish derived (Unverified Allergy, Severe, EDEMA, HIVES, 12/22/16) Reported Meds & Prescriptions Reported Meds & Active Scripts Active Active Prescriptions or Reported Medications Unobtainable Exam Exam Limitations: Uncooperative Alert: Yes Mood: Calm Speech: Clear Eye Contact: Indirect Delusions: No Suicidal: Ideation (none verbalized) Homicidal: Ideation (none verbalized) Insight/Judgement poor. poor MDM Medical Decision Making Medical Record Reviewed: Yes Assessment/Plan History of Present Illness HPI 36-year-old black male presents to emergency department under Brandt act by PD. This is a patient well-known to the ER staff for multiple visits. He has a history of polysubstance abuse. He typically smokes crack cocaine and marijuana. The patient had made suicidal statements. Patient has been in his room most of his time here in [facility]. He has been sleeping and eating well. He has requested a basin to clean up and is requesting discharge. At this time with information available and based on current presentation he does not meet BA criteria. He appears to be utilizing the Ed as a [place] [facility] after he becomes intoxicated with substances. He does not follow up with recommended treatment. Orders Orders Psych Screen (12/22/16 01:39) Drug Screen, Random Urine (12/22/16 01:39) Ziprasidone Inj (Geodon Inj) (12/22/16 01:45) Diphenhydramine Inj (Benadryl Inj) (12/22/16 01:45) Diet Regular Basic (12/22/16 Breakfast) Diet Regular Basic (12/22/16 Lunch) Results Vital Signs Date Time Temp Pulse Resp B/P (MAP) Pulse Ox O2 Delivery O2 Flow Rate FiO2 12/22/16 05:54 12/22/16 01:52 98.1 74 145/94 (111) 98 12/22/16 01:45 98.2 74 20 145/94 (111) 98 12/22/16 01:45 74 20 Laboratory Tests Test 12/22/16 02:00 Urine Opiates Screen NEG Urine Barbiturates Screen NEG Urine Amphetamines Screen NEG Urine Benzodiazepines Screen NEG Urine Cocaine Screen POS Urine Cannabinoids Screen POS Diagnosis Primary Impression: Cocaine abuse Additional Impression: Cocaine-induced mood disorder Psychiatrically Cleared: Yes Referrals: [facility] (Out patient) call for appointment Departure Forms: Tests/Procedures Patient Instructions: General Instructions, Cocaine Abuse (ED), Mood Disorders (ED), Cannabis Abuse (ED) Prescriptions Unable to Obtain Active Prescriptions or Reported Meds Disposition: 01 DISCHARGE HOME Condition: Stable Problem Qualifiers Ursula Santos Dec 22, 2016 14:58
--- NOTE | 2016-12-22 15:05 | PD ---
Physical Exam Time Seen by Provider: 15:04 Narrative CHATO Vergara evaluated the patient lifted the Brandt act and the patient will be discharged home. Data Data Last Documented VS Vital Signs Date Time Temp Pulse Resp B/P (MAP) Pulse Ox O2 Delivery O2 Flow Rate FiO2 12/22/16 05:54 12/22/16 01:52 98.1 74 98 12/22/16 01:45 20 Orders Orders Psych Screen (12/22/16 01:39) Drug Screen, Random Urine (12/22/16 01:39) Ziprasidone Inj (Geodon Inj) (12/22/16 01:45) Diphenhydramine Inj (Benadryl Inj) (12/22/16 01:45) Diet Regular Basic (12/22/16 Breakfast) Diet Regular Basic (12/22/16 Lunch) Labs Laboratory Tests Test 12/22/16 02:00 Urine Opiates Screen NEG Urine Barbiturates Screen NEG Urine Amphetamines Screen NEG Urine Benzodiazepines Screen NEG Urine Cocaine Screen POS Urine Cannabinoids Screen POS MDM Supervised Visit with JEAN: No Narrative Course CHATO Vergara has evaluated the patient, lifted the Brandt act and the patient will be discharged home. Patient contracts safety. Denies suicidal or homicidal ideations. Patient will be provided community resource packet to [facility]/ [facility] for follow-up. Has friends and family for support. Patient is medically cleared for discharge. Diagnosis Primary Impression: Cocaine abuse Additional Impression: Cocaine-induced mood disorder Referrals: [facility] (Out patient) call for appointment Patient Instructions: General Instructions, Cocaine Abuse (ED), Mood Disorders (ED), Cannabis Abuse (ED) Departure Forms: Tests/Procedures Additional Instruction: Contract safety to your self and others Stop using cocaine Follow-up with psychiatry Follow-up with primary care provider Follow-up with [facility] Return to the emergency department immediately with worsening of symptoms Med/Other Pt SpecificInfo: No Meds Exist/No RX given Scripts Unable to Obtain Active Prescriptions or Reported Meds Disposition: 01 DISCHARGE HOME Condition: Stable Charmaine Winters Dec 22, 2016 15:05
== END 2016-12-22 16:32 | disposition home or self-care (01) ==
LOC: NEPD 01:28 → NEPJ 16:32
DX: F14.14 Cocaine abuse with cocaine-induced mood disorder (principal); F20.9 Schizophrenia, unspecified
CPT/HCPCS: 80307; 96372; 99284; J1200; J3486

== ENCOUNTER 2016-12-24 03:59 | Emergency (ER) | payer OTHER ==
--- NOTE | 2016-12-24 04:15 | PD ---
HPI Chief Complaint: Psychiatric Symptoms Time Seen by Provider: 04:09 Travel History International Travel<30 days: No Contact w/Intl Traveler<30days: No Traveled to known affect area: No History of Present Illness HPI 36-year-old black male with history of substance abuse presents again today stating that he is suicidal according the Brandt act. The patient has been seen multiple times in the ER for similar type presentations. No toxic ingestions. No homicidal ideation. PFSH Past Medical History Arthritis: No Asthma: No Autoimmune Disease: No Blood Disorders: No Anxiety: No Depression: Yes Heart Rhythm Problems: Yes Cancer: No High Cholesterol: No Chest Pain: No Congestive Heart Failure: No COPD: No Cerebrovascular Accident: No Diabetes: No Diminished Hearing: No Endocrine: No Gastrointestinal Disorders: No GERD: No Glaucoma: No Genitourinary: No Headaches: No Hepatitis: No Hiatal Hernia: No Hypertension: No Immune Disorder: No Implanted Vascular Access Dvce: Yes Musculoskeletal: No Neurologic: No Psychiatric: Yes (Schizophrenia) Reproductive: No Respiratory: No Immunizations Current: No Migraines: No Myocardial Infarction: No Schizophrenia: Yes Seizures: No Sleep Apnea: No Ulcer: No Past Surgical History Abdominal Surgery: No AICD: No Appendectomy: No Body Medical Devices: Facial plate Cardiac Surgery: No Cholecystectomy: No Ear Surgery: Yes Endocrine Surgery: No Genitourinary Surgery: No Gynecologic Surgery: No Neurologic Surgery: No Oral Surgery: Yes ( Facial plate) Pacemaker: No Thoracic Surgery: No Other Surgery: Yes (plate in face) Social History Alcohol Use: Yes Tobacco Use: Yes Substance Use: Yes (crack, cocaine, marijuana, K2) Allergies-Medications (Allergen,Severity, Reaction): Coded Allergies: shellfish derived (Unverified Allergy, Severe, EDEMA, HIVES, 12/22/16) Reported Meds & Prescriptions Reported Meds & Active Scripts Active Active Prescriptions or Reported Medications Unobtainable Review of Systems Except as stated in HPI: all other systems reviewed are Neg Physical Exam Narrative GENERAL: This is a well-nourished, well-developed patient, in no apparent distress. The patient is laying down in bed with the covers pulled up over his head. SKIN: No rashes, ecchymoses or lesions. Warm and dry. HEAD: Atraumatic. Normocephalic. EYES: PERRL, EOMI, no discharge or injection. No scleral icterus. EARS: Clear NOSE: Nasal turbinates appear normal. THROAT: Mucosa pink and moist. Airway patent. NECK: Trachea midline. supple, moves head freely. LUNGS: Clear to auscultation. CV: Regular in rhythm. ABDOMEN: Soft nontender. EXT: No clubbing cyanosis or edema. MDM Medical Decision Making Medical Screen Exam Complete: Yes Emergency Medical Condition: Yes Medical Record Reviewed: Yes Differential Diagnosis MDM: High Differential diagnoses: Schizophrenia, schizoaffective disorder, bipolar, anxiety, depression, adjustment reaction, mood disorder NOS, ODD, depressive disorder NOS, dementia, dementia with agitation, psychosis NOS, substance induced mood disorder, intermittent explosive disorder, Asperger syndrome, infection,electrolyte abnormality, malingering. Narrative Course Mental health screening discussed with the patient. Psychiatric screen ordered. The patient been medically cleared. There is no indication for laboratory testing on this individual. His laboratory tests are always normal and his drug she is always positive for cocaine and marijuana. This is medical clearance for psychiatric admission, polysubstance abuse Diagnosis Primary Impression: Medical clearance for psychiatric admission Additional Impression: Polysubstance abuse Scripts Unable to Obtain Active Prescriptions or Reported Meds Condition: Mal Melendez Dec 24, 2016 04:15
[2016-12-24 08:09] VITALS: BP 115/83; PULSE 69; RESP 16; TEMP 97.6; O2SAT 97
[2016-12-24 11:16] VITALS: BP 115/83
--- NOTE | 2016-12-24 13:03 | PD ---
History of Present Illness Chief Complaint: Psychiatric Symptoms Time Seen by Provider: 11:15 Travel History International Travel<30 Days: No Contact w/Intl Traveler<30days: No Known affected area: No Legal Status Legal Status: Brandt Act History of Present Illness: 36-year-old male who has been to this emergency department many many times previously and is well known to this physician. Patient is often positive for cocaine, despite his reported history of major mental illness. From past experience, it appears patient uses bus passes to obtain baker to buy cocaine. On this occasion patient once again presents with suicidal ideation and is under a Brandt act. However, this physician notes the patient would not cooperate with providing urine for toxicology screen or other laboratory work. When approached by this physician, the patient became hostile, shouting and highly agitated. He literally jumped off the hospital bed and came at this position with his right arm raised over his head, holding a milk carton he was prepared to throw. This was witnessed by the plating tank operator apprentice, Kevin, in addition to this physician. The patient was therefore discharged after the Brandt act was lifted. The case was discussed briefly with the emergency department attending, Dr. Thao. Patient was escorted off the premises by our security people. Patient did not threaten suicide and any point during this confrontation. PFSH Past Medical History Arthritis: No Asthma: No Autoimmune Disease: No Blood Disorders: No Anxiety: No Depression: Yes Heart Rhythm Problems: Yes Cancer: No High Cholesterol: No Chest Pain: No Congestive Heart Failure: No COPD: No Cerebrovascular Accident: No Diabetes: No Diminished Hearing: No Endocrine: No Gastrointestinal Disorders: No GERD: No Glaucoma: No Genitourinary: No Headaches: No Hepatitis: No Hiatal Hernia: No Hypertension: No Immune Disorder: No Implanted Vascular Access Dvce: Yes Musculoskeletal: No Neurologic: No Psychiatric: Yes (Schizophrenia) Reproductive: No Respiratory: No Immunizations Current: No Migraines: No Myocardial Infarction: No Schizophrenia: Yes Seizures: No Sleep Apnea: No Ulcer: No Tetanus Vaccination: Unknown Past Surgical History Abdominal Surgery: No AICD: No Appendectomy: No Body Medical Devices: Facial plate Cardiac Surgery: No Cholecystectomy: No Ear Surgery: Yes Endocrine Surgery: No Genitourinary Surgery: No Gynecologic Surgery: No Neurologic Surgery: No Oral Surgery: Yes ( Facial plate) Pacemaker: No Thoracic Surgery: No Other Surgery: Yes (plate in face) Psychiatric History Psychiatric History Hx Psychiatric Treatment: Patient with a hx of schizophrenia and depression. Last inpatient psychiatric admission on unit 2700 Nov 21 - 2016 for suicide gesture. Previous inpatient admissions at [facility] and [facility] in [facility]. This physician is not convinced of schizophrenia or other major mental illness aside's drug abuse, at this time. Patient has demonstrated a significant pattern of presenting to this emergency department positive for cocaine. History of Inpatient Treatment: Yes Guns or firearms in home: No Social History Hx Alcohol Use: No Hx Tobacco Use: Yes Hx Substance Use: Yes (COCAINE, MARIJUANA) Substance Use Type: Crack, Marijuana Other Substances Used: HX OF CRACK PER RECORDS Hx of Substance Use Treatment: Yes Allergies-Medications (Allergen,Severity, Reaction): Coded Allergies: shellfish derived (Unverified Allergy, Severe, EDEMA, HIVES, 12/22/16) Reported Meds & Prescriptions Reported Meds & Active Scripts Active Active Prescriptions or Reported Medications Unobtainable Review of Systems Except as stated in HPI: all other systems reviewed are Neg Exam Alert: Yes Holderness: Person, Place, Date, Situation Mood: Agitated, Angry Affect: Labile Speech: Clear Eye Contact: Normal Memory Intact: Immediate, Recent, Remote Insight/Judgement Baseline MDM Medical Decision Making Medical Record Reviewed: Yes Assessment/Plan Patient interviewed briefly at bedside until he became very agitated and threatening. Case discussed with business case analyst, Kevin, and ED attending. Medical record reviewed and patient has not provided blood or urine sample. Patient refused to provide blood or urine for analysis. When told by this physician that it was unlikely he would be admitted without blood work and urinalysis, patient became hostile and threatening. He was not however suicidal or psychotic. His Brandt act was lifted and he was escorted from the premises. Orders Orders Psych Screen (12/24/16 04:20) Diet Regular Basic (12/24/16 Breakfast) Results Vital Signs Date Time Temp Pulse Resp B/P (MAP) Pulse Ox O2 Delivery O2 Flow Rate FiO2 12/24/16 11:16 115/83 (94) 12/24/16 08:11 69 16 9/14/17 08:09 97.6 69 16 115/83 94) 97 Room Air Diagnosis Primary Impression: Cocaine abuse Departure Forms: Tests/Procedures Patient Instructions: General Instructions Prescriptions Unable to Obtain Active Prescriptions or Reported Meds Disposition: 01 DISCHARGE HOME Condition: Stable Romeo Alexander MD Dec 24, 2016 13:03
== END 2016-12-24 11:18 | disposition home or self-care (01) ==
LOC: NEPD 03:59
DX: F32.9 Major depressive disorder, single episode, unspecified (principal); F19.10 Other psychoactive substance abuse, uncomplicated; F14.10 Cocaine abuse, uncomplicated; F20.9 Schizophrenia, unspecified; Z72.0 Tobacco use
CPT/HCPCS: 99281

== ENCOUNTER 2016-12-25 03:27 | Emergency (ER) | payer SELFPAY ==
[~2016-12-25] VITALS: Ht 180.3 cm; Wt 78.9 kg
[2016-12-25 04:50] VITALS: BP 141/78; PULSE 77; RESP 20; TEMP 97.5; O2SAT 98
--- NOTE | 2016-12-25 05:46 | PD ---
HPI Chief Complaint: Psychiatric Symptoms Time Seen by Provider: 05:41 Travel History International Travel<30 days: No Contact w/Intl Traveler<30days: No Traveled to known affect area: No History of Present Illness HPI 36-year-old black male well-known to the ER staff for multiple ER visits presents again this evening. This is a patient who had seen yesterday as well. He has a history of cocaine and marijuana abuse. He comes in tonight to sleep. Once again he is here comes into the examination room and covers up with his blanket. The patient is refusing to answer questions. He merely covers himself up. PFSH Past Medical History Arthritis: No Asthma: No Autoimmune Disease: No Blood Disorders: No Anxiety: No Depression: Yes Heart Rhythm Problems: Yes Cancer: No Cardiovascular Problems: Yes High Cholesterol: No Chest Pain: No Congestive Heart Failure: No COPD: No Cerebrovascular Accident: No Diabetes: No Diminished Hearing: No Endocrine: No Gastrointestinal Disorders: No GERD: No Glaucoma: No Genitourinary: No Headaches: No Hepatitis: No Hiatal Hernia: No Hypertension: No Immune Disorder: No Implanted Vascular Access Dvce: Yes Musculoskeletal: No Neurologic: No Psychiatric: Yes (Schizophrenia) Reproductive: No Respiratory: No Immunizations Current: No Migraines: No Myocardial Infarction: No Schizophrenia: Yes Seizures: No Sleep Apnea: No Ulcer: No Tetanus Vaccination: Unknown Influenza Vaccination: No Past Surgical History Abdominal Surgery: No AICD: No Appendectomy: No Body Medical Devices: Facial plate Cardiac Surgery: No Cholecystectomy: No Ear Surgery: Yes Endocrine Surgery: No Genitourinary Surgery: No Gynecologic Surgery: No Neurologic Surgery: No Oral Surgery: Yes ( Facial plate) Pacemaker: No Thoracic Surgery: No Other Surgery: Yes (plate in face) Social History Alcohol Use: No Tobacco Use: Yes Substance Use: Yes (COCAINE, MARIJUANA) Allergies-Medications (Allergen,Severity, Reaction): Coded Allergies: shellfish derived (Unverified Allergy, Severe, EDEMA, HIVES, 12/25/16) Reported Meds & Prescriptions Reported Meds & Active Scripts Active No Active Prescriptions or Reported Medications Review of Systems ROS Limitations: Uncooperative Physical Exam Narrative GENERAL: This is a well-nourished, well-developed patient, in no apparent distress. SKIN: No rashes, ecchymoses or lesions. Warm and dry. HEAD: Atraumatic. Normocephalic. EYES: PERRL, EOMI, no discharge or injection. No scleral icterus. EARS: Clear NOSE: Nasal turbinates appear normal. THROAT: Mucosa pink and moist. Airway patent. NECK: Trachea midline. supple, moves head freely. LUNGS: Clear to auscultation. CV: Regular in rhythm. ABDOMEN: Soft nontender. EXT: No clubbing cyanosis or edema. Data Data Last Documented VS Vital Signs Date Time Temp Pulse Resp B/P (MAP) Pulse Ox O2 Delivery O2 Flow Rate FiO2 12/25/16 05:04 20 12/25/16 04:50 97.5 77 141/78 (99) 98 MDM Medical Decision Making Medical Screen Exam Complete: Yes Emergency Medical Condition: Yes Medical Record Reviewed: Yes Differential Diagnosis Differential diagnoses: Alcohol intoxication, substance abuse, electrolyte abnormality, malingering Narrative Course The patient this evening appears to be more interested in sleeping than answering any questions regarding his ER visit today. When I told the patient that we'll be discharging him he raised up out of bed and became aggressive towards the staff and myself. The patient then states that he is depressed, lonely, tired and suicidal. The patient is feigning mental health. The patient is malingering to obtain a domiciled. Security has been called and he is excoriated off the premises. This is substance induced mood disorder, malingering Diagnosis Primary Impression: Substance induced mood disorder Additional Impression: Malingering Patient Instructions: General Instructions Additional Instructions: Rest. Increase fluids. Avoid alcohol. Avoid illegal substances. Follow-up with [facility] for [facility]. Do not operate a car or any heavy machinery under the influence of alcohol or drugs. Follow-up with a medical doctor this week. Return to the ER for emergencies Med/Other Pt SpecificInfo: No Meds Exist/No RX given Scripts No Active Prescriptions or Reported Meds Condition: Mal Melendez Dec 25, 2016 05:46
== END 2016-12-25 06:06 | disposition home or self-care (01) ==
LOC: NEPD 03:27
DX: F19.94 Other psychoactive substance use, unspecified with psychoactive substance-induced mood disorder (principal); Z76.5 Malingerer [conscious simulation]
CPT/HCPCS: 99281

== ENCOUNTER 2017-01-27 03:59 | Inpatient (IN) | payer OTHER ==
[~2017-01-27] VITALS: Ht 182.9 cm; Wt 80.0 kg
[2017-01-27 04:13] VITALS: BP 134/87; PULSE 88; RESP 18; TEMP 98; O2SAT 98
--- NOTE | 2017-01-27 04:32 | PD ---
HPI Chief Complaint: Psychiatric Symptoms Time Seen by Provider: 04:19 Travel History International Travel<30 days: No Contact w/Intl Traveler<30days: No Traveled to known affect area: No History of Present Illness HPI Patient's a 36-year-old male presenting to the emergency Department under Brandt act for psychiatric evaluation. Patient is not forthcoming with the events of the evening. He will not give us any information regarding his mental status. Patient is lying in bed with sheets over his head and will not respond. The Brandt act states that patient wants to harm himself and is depressed. I do not know how long this is going on for a do not know any precipitating events due to patient's unwillingness to cooperate with exam. PFSH Past Medical History Arthritis: No Asthma: No Autoimmune Disease: No Blood Disorders: No Anxiety: No Depression: Yes Heart Rhythm Problems: Yes Cancer: No Cardiovascular Problems: Yes High Cholesterol: No Chest Pain: No Congestive Heart Failure: No COPD: No Cerebrovascular Accident: No Diabetes: No Diminished Hearing: No Endocrine: No Gastrointestinal Disorders: No GERD: No Glaucoma: No Genitourinary: No Headaches: No Hepatitis: No Hiatal Hernia: No Hypertension: No Immune Disorder: No Implanted Vascular Access Dvce: Yes Musculoskeletal: No Neurologic: No Psychiatric: Yes (Schizophrenia) Reproductive: No Respiratory: No Immunizations Current: No Migraines: No Myocardial Infarction: No Schizophrenia: Yes Seizures: No Sleep Apnea: No Ulcer: No Tetanus Vaccination: Unknown Past Surgical History Abdominal Surgery: No AICD: No Appendectomy: No Body Medical Devices: Facial plate Cardiac Surgery: No Cholecystectomy: No Ear Surgery: Yes Endocrine Surgery: No Genitourinary Surgery: No Gynecologic Surgery: No Neurologic Surgery: No Oral Surgery: Yes ( Facial plate) Pacemaker: No Thoracic Surgery: No Other Surgery: Yes (plate in face) Social History Tobacco Use: No Allergies-Medications (Allergen,Severity, Reaction): Coded Allergies: shellfish derived (Unverified Allergy, Severe, EDEMA, HIVES, 12/25/16) Reported Meds & Prescriptions Reported Meds & Active Scripts Active No Active Prescriptions or Reported Medications Reported Percocet (Oxycodone/Acetaminophen) 5 Mg/325 Mg Tab 1 Tab PO Q6HPRN FOR PAIN Zantac (Ranitidine HCl) 150 Mg Tab 150 Mg PO BID Risperdal (Risperidone) 1 Mg Tab 1 Mg PO BID Prozac (Fluoxetine HCl) 20 Mg/5 Ml Liqd 10 Mg PO DAILY Keflex (Cephalexin Monohydrate) 500 Mg Cap 500 Mg PO TID Review of Systems Except as stated in HPI: all other systems reviewed are Neg Psychiatric: Positive: Depression, Suicidal Ideations, Substance Abuse Physical Exam Narrative GENERAL: Well-developed, well-nourished, alert male. Resting in no acute distress. SKIN: Warm and dry. HEAD: Atraumatic. Normocephalic. EYES: Pupils equal and round. No scleral icterus. No injection or drainage. ENT: No nasal bleeding or discharge. Mucous membranes pink and moist. NECK: Trachea midline. No JVD. CARDIOVASCULAR: Regular rate and rhythm. RESPIRATORY: No accessory muscle use. Clear to auscultation. Breath sounds equal bilaterally. GASTROINTESTINAL: Abdomen soft, non-tender, nondistended. Hepatic and splenic margins not palpable. MUSCULOSKELETAL: Extremities without clubbing, cyanosis, or edema. No obvious deformities. NEUROLOGICAL: Awake and alert. No obvious cranial nerve deficits. Motor grossly within normal limits. Five out of 5 muscle strength in the arms and legs. Normal speech. PSYCHIATRIC: Depressed mood and flat affect; insight and judgment normal. Data Data Last Documented VS Vital Signs Date Time Temp Pulse Resp B/P (MAP) Pulse Ox O2 Delivery O2 Flow Rate FiO2 01/27/17 04:13 98.0 88 18 134/87 (103) 98 Orders Orders Complete Blood Count With Diff (01/27/17 04:18) Comprehensive Metabolic Panel (01/27/17 04:18) Psych Screen (01/27/17 04:18) Drug Screen, Random Urine (01/27/17 04:18) Alcohol (Ethanol) (01/27/17 04:18) Salicylates (Aspirin) (01/27/17 04:18) Tylenol (Acetaminophen) (01/27/17 04:18) Labs Laboratory Tests Test 01/27/17 04:30 White Blood Count 5.6 TH/MM3 Red Blood Count 4.03 MIL/MM3 Hemoglobin 12.0 GM/DL Hematocrit 36.5 % Mean Corpuscular Volume 90.5 FL Mean Corpuscular Hemoglobin 29.7 PG Mean Corpuscular Hemoglobin Concent 32.8 % Red Cell Distribution Width 15.0 % Platelet Count 186 TH/MM3 Mean Platelet Volume 9.2 FL Neutrophils (%) (Auto) 53.4 % Lymphocytes (%) (Auto) 38.2 % Monocytes (%) (Auto) 5.1 % Eosinophils (%) (Auto) 2.3 % Basophils (%) (Auto) 1.0 % Neutrophils # (Auto) 3.0 TH/MM3 Lymphocytes # (Auto) 2.1 TH/MM3 Monocytes # (Auto) 0.3 TH/MM3 Eosinophils # (Auto) 0.1 TH/MM3 Basophils # (Auto) 0.1 TH/MM3 CBC Comment DIFF FINAL Differential Comment Blood Urea Nitrogen 7 MG/DL Creatinine 0.92 MG/DL Random Glucose 89 MG/DL Total Protein 6.3 GM/DL Albumin 3.3 GM/DL Calcium Level 8.7 MG/DL Alkaline Phosphatase 66 U/L Aspartate Amino Transf (AST/SGOT) 26 U/L Alanine Aminotransferase (ALT/SGPT) 31 U/L Total Bilirubin 0.3 MG/DL Sodium Level 141 MEQ/L Potassium Level 3.7 MEQ/L Chloride Level 110 MEQ/L Carbon Dioxide Level 26.5 MEQ/L Anion Gap 5 MEQ/L Estimat Glomerular Filtration Rate 112 ML/MIN Salicylates Level 3.3 MG/DL Acetaminophen Level LESS THAN 2.0 MCG/ML Ethyl Alcohol Level LESS THAN 3 MG/DL MDM Medical Decision Making Medical Screen Exam Complete: Yes Emergency Medical Condition: Yes Medical Record Reviewed: Yes Interpretation(s) Vital Signs Date Time Temp Pulse Resp B/P (MAP) Pulse Ox O2 Delivery O2 Flow Rate FiO2 01/27/17 04:13 98.0 88 18 134/87 (103) 98 Differential Diagnosis Substance abuse versus mood disorder versus depression versus suicidal ideations versus metabolic abnormality the versus other Narrative Course Patient is a 36-year-old male that presented to the emergency Department under Brandt act for psychiatric evaluation due to suicidal ideations and depression. Vital signs are stable, labs reviewed, no acute abnormalities identified. Patient continues to avoid answering questions. Patient was transferred to [facility] ER. Patient is medically cleared for psychiatric evaluation at this time. Diagnosis Primary Impression: Medical clearance for psychiatric admission Additional Impression: Suicidal ideations Condition: Stable María Dominguez Jan 27, 2017 04:32
[2017-01-27 04:41] LABS: BASOPHIL # 0.1 TH/MM3 (0-0.2); EOSINOPHIL # 0.1 TH/MM3 (0-0.4); EOSINOPHIL % 2.3 % (0.0-4.0); HEMATOCRIT 36.5 % (39.0-51.0); HEMO FLAGS DIFF FINAL; LYMPH % 38.2 % (9.0-44.0); LYMPHOCYTE # 2.1 TH/MM3 (1.0-4.8); MEAN CELL VOLUME 90.5 FL (80.0-100.0); MEAN CORPUSCULAR HEMOGLOBIN 29.7 PG (27.0-34.0); MEAN CORPUSCULAR HGB CONC 32.8 % (32.0-36.0); MONO % 5.1 % (0.0-8.0); NEUT % 53.4 % (16.0-70.0); PLATELET COUNT 186 TH/MM3 (150-450); RED BLOOD COUNT 4.03 MIL/MM3 (4.50-5.90); WHITE BLOOD COUNT 5.6 TH/MM3 (4.0-11.0)
[2017-01-27 04:55] LABS: ALT (GPT) 31 U/L (12-78); ANION GAP 5 MEQ/L (5-15); AST (GOT) 26 U/L (15-37); BICARBONATE 26.5 MEQ/L (21.0-32.0); BLOOD UREA NITROGEN 7 MG/DL (7-18); CHLORIDE 110 MEQ/L (98-107); GLOMERULAR FILTRATION RATE 112 ML/MIN (>89); POTASSIUM 3.7 MEQ/L (3.5-5.1); SODIUM (NA) 141 MEQ/L (136-145)
[2017-01-27 04:58] LABS: ACETAMINOPHEN LESS THAN 2.0 MCG/ML (10.0-30.0); ALKALINE PHOSPHATASE 66 U/L (45-117); TOTAL BILIRUBIN ADULT 0.3 MG/DL (0.2-1.0)
[2017-01-27 04:59] LABS: ALCOHOL LESS THAN 3 MG/DL (0-5)
[2017-01-27 15:44] VITALS: BP 134/87; PULSE 88; RESP 18; O2SAT 98
--- NOTE | 2017-01-27 19:19 | PD ---
History of Present Illness Chief Complaint: Psychiatric Symptoms Time Seen by Provider: 13:00 Travel History International Travel<30 Days: No Contact w/Intl Traveler<30days: No Known affected area: No Legal Status Legal Status: Brandt Act Brandt Act Signed By: Remberto Real Brandt Act Comment: BA signed by: RAULITO BOSTON Badge#[id number], Case#[id number] History of Present Illness: History of Present Illness HPI Patient's a 36-year-old male known to [facility], with history of schizophrenia, substance use disorder, substance induced mood disorder presenting to the emergency Department under Brandt act initiated by RAULITO. The Brandt act alleges that " he stated he wants to harm himself and is depressed". The patient has been withdrawn and has refused to answer questions. When he is prompted he becomes agitated with staff. He has been consistent in his response or lack of . Toxicology report is pending at this time. Patient is asleep . He refuses to answer questions when asked. After some prompting he becomes agitated and states " You tell me what mental health sounds like? How about that, I have figured it out. I know the meaning of all this stuff here. He goes on about the meaning of the world, my mental health, other staff as well etc. And family there is no such thing as family, mother doesn't exist, ". He is easily agitated, unpredictable and possibly paranoid. This may be effects of his substance use. PFSH Past Medical History Arthritis: No Asthma: No Autoimmune Disease: No Blood Disorders: No Anxiety: No Depression: Yes Heart Rhythm Problems: Yes Cancer: No Cardiovascular Problems: Yes High Cholesterol: No Chest Pain: No Congestive Heart Failure: No COPD: No Cerebrovascular Accident: No Diabetes: No Diminished Hearing: No Endocrine: No Gastrointestinal Disorders: No GERD: No Glaucoma: No Genitourinary: No Headaches: No Hepatitis: No Hiatal Hernia: No Hypertension: No Immune Disorder: No Implanted Vascular Access Dvce: Yes Musculoskeletal: No Neurologic: No Psychiatric: Yes (Schizophrenia) Reproductive: No Respiratory: No Immunizations Current: No Migraines: No Myocardial Infarction: No Schizophrenia: Yes Seizures: No Sleep Apnea: No Ulcer: No Tetanus Vaccination: Unknown Past Surgical History Abdominal Surgery: No AICD: No Appendectomy: No Body Medical Devices: Facial plate Cardiac Surgery: No Cholecystectomy: No Ear Surgery: Yes Endocrine Surgery: No Genitourinary Surgery: No Gynecologic Surgery: No Neurologic Surgery: No Oral Surgery: Yes ( Facial plate) Pacemaker: No Thoracic Surgery: No Other Surgery: Yes (plate in face) Psychiatric History Psychiatric History Hx Psychiatric Treatment: Patient with a hx of schizophrenia and depression. Last inpatient psychiatric admission on unit [facility] Nov 21 - 2016 for suicide gesture. Previous inpatient admissions at [facility] and [facility] in [facility]. History of Inpatient Treatment: Yes Guns or firearms in home: No Social History Single, homeless, unemployed. Hx Alcohol Use: Yes Hx Tobacco Use: No Hx Substance Use: Yes Substance Use Type: Crack, Marijuana Other Substances Used: HX OF CRACK PER RECORDS Hx of Substance Use Treatment: Yes Allergies-Medications (Allergen,Severity, Reaction): Coded Allergies: shellfish derived (Unverified Allergy, Severe, EDEMA, HIVES, 12/25/16) Reported Meds & Prescriptions Reported Meds & Active Scripts Active No Active Prescriptions or Reported Medications Reported Percocet (Oxycodone/Acetaminophen) 5 Mg/325 Mg Tab 1 Tab PO Q6HPRN FOR PAIN Zantac (Ranitidine HCl) 150 Mg Tab 150 Mg PO BID Risperdal (Risperidone) 1 Mg Tab 1 Mg PO BID Prozac (Fluoxetine HCl) 20 Mg/5 Ml Liqd 10 Mg PO DAILY Keflex (Cephalexin Monohydrate) 500 Mg Cap 500 Mg PO TID Review of Systems ROS Limitations: Uncooperative Mental Status Examination Appearance: Dirty, Disheveled, Malodorous Consciousness: Alert Orientation: Person, Place, Date/Time Motor Activity: Normal gait Speech: Other (loud, tangential) Language: Adequate Fund of Knowledge: Inadequate Attention and Concentration: Other (withdrawn) Memory: Unremarkable (not tetsed) Mood: Angry, Other (withdrawn) Affect: Flat Thought Process & Associations: Disorganized Thought Content: Other (unable to fully assess) Hallucination Type: None Delusion Type: Paranoid Suicidal Ideation: No Suicidal Plan: No Suicidal Intention: No Homicidal Ideation: No Homicidal Plan: No Homicidal Intention: No Insight: Poor Judgment: Poor MDM Medical Decision Making Medical Record Reviewed: Yes Assessment/Plan Patient's a 36-year-old male known to [facility], with history of schizophrenia, substance use disorder, substance induced mood disorder presenting to the emergency Department under Brandt act initiated by RAULITO. The Brandt act alleges that " he stated he wants to harm himself and is depressed". The patient has been withdrawn and has refused to answer questions. When he is prompted he becomes agitated with staff. He has been consistent in his response or lack of . Toxicology report is pending at this time and certainly substances may be a part of his presentation. Patient remains at this point easily agitated when he is approached by staff, impulsive and unpredictable. He will be placed on [facility] list for treatment. Remains under the Brandt act. Orders Orders Complete Blood Count With Diff (01/27/17 04:18) Comprehensive Metabolic Panel (01/27/17 04:18) Psych Screen (01/27/17 04:18) Drug Screen, Random Urine (01/27/17 04:18) Alcohol (Ethanol) (01/27/17 04:18) Salicylates (Aspirin) (01/27/17 04:18) Tylenol (Acetaminophen) (01/27/17 04:18) Diet Regular Basic (01/27/17 Breakfast) Diet Regular Basic (01/27/17 Lunch) Diet Regular Basic (01/27/17 Dinner) Results Vital Signs Date Time Temp Pulse Resp B/P (MAP) Pulse Ox O2 Delivery O2 Flow Rate FiO2 01/27/17 17:38 01/27/17 15:44 88 18 134/87 (103) 98 Room Air 01/27/17 04:13 98.0 88 18 134/87 (103) 98 Laboratory Tests Test 01/27/17 04:30 White Blood Count 5.6 Red Blood Count 4.03 Hemoglobin 12.0 Hematocrit 36.5 Mean Corpuscular Volume 90.5 Mean Corpuscular Hemoglobin 29.7 Mean Corpuscular Hemoglobin Concent 32.8 Red Cell Distribution Width 15.0 Platelet Count 186 Mean Platelet Volume 9.2 Neutrophils (%) (Auto) 53.4 Lymphocytes (%) (Auto) 38.2 Monocytes (%) (Auto) 5.1 Eosinophils (%) (Auto) 2.3 Basophils (%) (Auto) 1.0 Neutrophils # (Auto) 3.0 Lymphocytes # (Auto) 2.1 Monocytes # (Auto) 0.3 Eosinophils # (Auto) 0.1 Basophils # (Auto) 0.1 CBC Comment DIFF FINAL Differential Comment Blood Urea Nitrogen 7 Creatinine 0.92 Random Glucose 89 Total Protein 6.3 Albumin 3.3 Calcium Level 8.7 Alkaline Phosphatase 66 Aspartate Amino Transf (AST/SGOT) 26 Alanine Aminotransferase (ALT/SGPT) 31 Total Bilirubin 0.3 Sodium Level 141 Potassium Level 3.7 Chloride Level 110 Carbon Dioxide Level 26.5 Anion Gap 5 Estimat Glomerular Filtration Rate 112 Salicylates Level 3.3 Acetaminophen Level LESS THAN 2.0 Ethyl Alcohol Level LESS THAN 3 Diagnosis Primary Impression: Schizophrenia Additional Impression: Substance induced mood disorder Ruled Out: Suicidal ideations Condition: Stable Problem Qualifiers Primary Impression: Schizophrenia Qualified Codes: F20.9 - Schizophrenia, unspecified Ursula Santos [facility] Jan 27, 2017 19:19
[2017-01-27 22:14] VITALS: BP 117/62; PULSE 84; RESP 18; O2SAT 98
[2017-01-28 02:00] VITALS: RESP 18
[2017-01-28] MEDS ORDERED: ALUMINUM/MAGNESIUM/SIMETH 30 ML CUP PO PRN (12:15)
[2017-01-28] MEDS ORDERED: MAGNESIUM HYDROXIDE SUSP 30 ML CUP PO PRN (12:15)
[2017-01-28] MEDS ORDERED: ACETAMINOPHEN 325 MG TAB PO PRN (12:15)
[2017-01-28] MEDS ORDERED: HALOPERIDOL LACTATE 5 MG/ML AMP IM ONE (12:30)
[2017-01-28] MEDS ORDERED: diphenhydrAMINE HCL 50 MG/ML VIAL IM ONE (12:30)
--- NOTE | 2017-01-29 10:26 | HHI.HP ---
Provisional Diagnosis Admission Date Jan 28, 2017 at 12:12 [place] I. 1. Drug-induced mood disorder, now resolved 2. Polysubstance abuse (cocaine, cannabis) [place] II. Deferred Certification of Person's Competence To Provide Express and Informed Consent I have personally examined Jonathan Robles , a person being served at [facility] on, Jan 29, 2017 10:26. Express and informed consent means consent voluntarily given in writing, by a competent person, after sufficient explanation and disclosure of the subject matter involved to enable the person to make a knowing and willful decision without any element of force, fraud, deceit, duress, or other form of constraint or coercion. This person is 18 years of age or older, is not now known to be incompetent to consent to treatment with a guardian advocate, and does not have a health care surrogate or proxy currently making medical treatment decisions. I have found this person to be one of the following: [x] Competent to provide express and informed consent, as defined above, for voluntary admission to this facility and is competent to provide express and informed consent for treatment. He/she has the consistent capacity to make well reasoned, willful, and knowing decisions concerning his or her medical or mental health treatment. The person fully and consistently understands the purpose of the admission for examination/placement and is fully capable of personally exercising all rights assured under [place] Incompetent to provide express and informed consent to voluntary admission, and this is incompetent to provide express and informed consent to treatment. The person must be transferred to involuntary status and a petition for a guardian advocate filed with the Circuit Court. [] Refusing to provide express and informed consent to voluntary admission but is competent to provide express and informed consent for treatment. The person must be discharged or transferred to involuntary status. Form shall be completed within 24 hours of a person's arrival at the receiving facility and filed in the clinical record of each person: 1. Admitted on a voluntary basis 2. Permitted to provide express and informed consent to his/her own treatment 3. Allowed to transfer from involuntary to voluntary status 4. Prior to permitting a person to consent to his or her own treatment after having been previously found incompetent to consent to treatment. History of Present Illness Capacity: Has Capacity HPI Mr. Robles is a 36-year-old male with a chart history so drug -induced mood disorder and cocaine abuse among others who presented initially to the ED under a Brandt act by law enforcement alleging that the patient was feeling depressed and wanted to kill himself. He was apparently fairly uncooperative and somewhat agitated in the ED and therefore has been admitted to the inpatient psychiatric unit. Reviewing the electronic medical record, I note an extensive history of previous ED visits for substance use and drug- induced mood disorder. He was seen most recently in consultation by Dr. Alexander in the middle of December of this year with a presentation similar to his current presentation; the diagnosis at that time was cocaine abuse. Patient seen and examined with nurse and counselor. Chart reviewed. Case discussed with nursing staff who reports that the patient was entitled and somewhat uncooperative overnight. On my examination today, the patient is in good spirits. He is clinically sober. He asks to be released from the inpatient psychiatric unit today. When I ask about the allegations in the Brandt act, he tells me "I don't remember what the Brandt act was for." He admits that he has been off of any psychotropic medications for several months. Despite this, he reports that his mood is currently good, and I can elicit no depressive or hypomanic/manic symptoms. He reports that he is sleeping and eating well. He denies any audiovisual hallucinations at this time and denies any command auditory hallucinations. He does admit to having experienced some auditory hallucinations in the past, possibly in the context of substance use. No current delusional material. He denies any suicidal or homicidal ideation, intent or plan on direct questioning and contracts for safety. He is agreeable to following up with outpatient psychiatry. The remainder of the psychiatric ROS is negative. No physical complaints. Past psychiatric history: The patient reports a history of schizoaffective disorder. He has followed, apparently fairly inconsistently at [facility]. He cannot remember when his last inpatient psychiatric admission was , but he thinks it was "not too long ago. He denies any history of suicide attempts in the past, although I do see that he made a suicidal gesture while here in November. Review of Systems Except as stated in HPI: all other systems reviewed are Neg Past Psych History Psychological trauma history No reported trauma history to me Violence risk - others (6 mos) Lower imminent risk from mental illness as defined under Brandt act. Denies homicidal ideation. No known history of violence. Denies any access to guns or firearms. Substance use is likely a chronic risk factor. Violence risk - self (6 mos) Lower imminent risk from mental illness as defined under Brandt act. Denies suicidal ideation. He does have a history of suicidal gesture in the past. Denies a family history of suicide. Substance use is likely a risk factor for this as well. Substance Abuse History Drugs/Alcohol past 12 months Patient admits to ongoing use of cannabis and cocaine. Denies any other substance use and denies use of synthetic drugs such as flakka. Past Family Social History Coded Allergies: shellfish derived (Unverified Allergy, Severe, EDEMA, HIVES, 12/25/16) Past Medical History Patient denies any medical issues Reported Medications Ranitidine Hcl (Zantac) 150 Mg Tab, 150 MG PO BID 05/06/09 Risperidone (Risperdal) 1 Mg Tab, 1 MG PO BID 05/06/09 Fluoxetine Hcl (Prozac) 20 Mg/5 Ml Liqd, 10 MG PO DAILY 05/06/09 Cephalexin (Keflex) 500 Mg Cap, 500 MG PO TID, #15 05/06/09 Discontinued Reported Medications Oxycodone/Acetaminophen (Percocet) 5 Mg/325 Mg Tab, 1 TAB PO Q6HPRN, #20 FOR PAIN 05/06/09 Current Medications Medications (Trade) Dose Ordered Sig/Miguel Route Start Time Stop Time Status Last Admin (Tylenol) 650 mg Q4H PRN PO 01/28/17 12:15 (Milk Of Magnesia Liq) 30 ml DAILY PRN PO 01/28/17 12:15 (Mag-Al Plus Susp Liq) 30 ml Q6H PRN PO 01/28/17 12:15 Family Psych History Patient denies any family history of serious mental illness or suicide. He does report that substance use issues run "somewhat" in his family. Social History Patient reports that he resides in a tent. He is single with no children. He denies any or legal history. He denies any access to guns or firearms. He denies any rastafari or spiritual beliefs. He denies any history of abuse. He has 2 years of college education and does not work. Patient's Strengths (min. 2) Able to access clinical care. Verbally fluent. Physical Exam Physical exam was completed by ED provider. On my examination today, the patient appears to be in no acute physical distress. No motor abnormalities noted. No signs of withdrawal noted. Labs and vitals reviewed: Vital Signs Vital Signs Date Time Temp Pulse Resp B/P (MAP) Pulse Ox O2 Delivery O2 Flow Rate FiO2 01/28/17 14:29 01/28/17 02:00 18 01/27/17 22:14 01/27/17 04:13 98.0 Lab Results Item Value Date Time White Blood Count 5.6 TH/MM3 01/27/17429 Hemoglobin 12.0 GM/DL L 01/27/17429 Platelet Count 186 TH/MM3 01/27/17429 Sodium Level 141 MEQ/L 01/27/17429 Potassium Level 3.7 MEQ/L 01/27/17429 Chloride Level 110 MEQ/L H 01/27/17429 Carbon Dioxide Level 26.5 MEQ/L 01/27/17429 Blood Urea Nitrogen 7 MG/DL 01/27/17429 Creatinine 0.92 MG/DL 01/27/17429 Estimat Glomerular Filtration Rate 112 ML/MIN 01/27/17 043 Aspartate Amino Transf (AST/SGOT) 26 U/L 01/27/17 043 Alanine Aminotransferase (ALT/SGPT) 31 U/L 01/27/17429 Alkaline Phosphatase 66 U/L 01/27/17429 Patient apparently did not provide a urine for urine toxicology. He admits to ongoing substance use as noted above. Previous urine toxicology screens have been positive for cocaine and cannabinoids. Anemia appears to be chronic. Mental Status Examination Appearance: Appropriate Consciousness: Alert Orientation: x4 Motor Activity: Other (no motor abnormalities noted) Speech: Unremarkable Language: Adequate Fund of Knowledge: Inadequate Attention and Concentration: Adequate Memory: Unremarkable (grossly intact on clinical exam) Mood: Good, Other (withdrawn) Affect: Euthymic (somewhat childlike) Thought Process & Associations: Logical, Goal directed, Linear Thought Content: Appropriate, Other (unable to fully assess) Hallucination Type: None Delusion Type: None Suicidal Ideation: No Suicidal Plan: No Suicidal Intention: No Homicidal Ideation: No Homicidal Plan: No Homicidal Intention: No Insight: Poor (likely patient's chronic condition) Judgment: Impulsive (likely patient's chronic condition) Mental Status Exam Remarks No signs of withdrawal noted. Assessment & Plan Problem List: (1) Substance induced mood disorder ICD Codes: F19.94 - Other psychoactive substance use, unspecified with psychoactive substance-induced mood disorder Status: Acute (2) Polysubstance abuse ICD Codes: F19.10 - Other psychoactive substance abuse, uncomplicated Status: Acute Assessment & Plan This is a 36-year-old male with psychiatric history as detailed above who presents under a Brandt act. Patient was apparently somewhat agitated and uncooperative in the ED yesterday, likely under the influence of substances. This morning, he is clinically sober and in good spirits. There is no evidence of any unstable mental illness as defined under the Brandt act in this patient at this time. He does seem to have significant substance use issues. His level of function seems to have improved, and he appears to be attending to his basic needs at this time. He is denying suicidal or homicidal ideation and nataly for safety. He is agreeable to outpatient mental health follow-up. Synthesizing this information and weighing the relevant factors, I occupational ther that the patient does not meet Brandt act criteria at this time. I have strongly recommended that the patient remain on the inpatient unit for further observation. He has declined and is insisting on discharge today. I have no choice therefore but to discharge the patient to self today in stable condition with psychiatric follow-up as arranged by counselor. I have recommended that he follow-up psychiatrically outpatient. I have recommended that the patient abstain from substances of abuse and pursue chemical dependency evaluation and treatment in the ambulatory setting. I have counseled the patient regarding warning signs for need to return to the psychiatric emergency room as part of a general safety plan. I have provided the patient with no prescriptions on discharge, and he is declining any psychotropic medication management at this time. This note serves also as my discharge summary. Request HC Surrog/Guard Advoc?: No Brett Ramirez MD Jan 29, 2017 10:26
== END 2017-01-29 14:19 | disposition home or self-care (01) | DRG 897 ==
LOC: NEPD 03:59 → NEDA 01-28 12:12 → H270 01-28 13:55
PROVIDERS: ADMIT Psychiatry & Neurology Psychiatry; ATTEND Psychiatry & Neurology Psychiatry
DX: F19.14 Other psychoactive substance abuse with psychoactive substance-induced mood disorder (principal); F14.10 Cocaine abuse, uncomplicated; F12.10 Cannabis abuse, uncomplicated; Z59.0 Homelessness
CPT/HCPCS: 80053; 80307; 85025; J1200; J1630

== ENCOUNTER 2017-01-31 02:37 | Emergency (ER) | payer OTHER ==
[~2017-01-31] VITALS: Ht 182.9 cm; Wt 85.0 kg
[~2017-01-31 02:37] MED LIST changes: -OXYC-360 PO
[2017-01-31 02:50] VITALS: BP 127/88; PULSE 110; RESP 25; TEMP 98.9; O2SAT 100
[2017-01-31] MEDS ORDERED: LORazepam 2 MG/ML VIAL IV PUSH ONE (03:00)
[2017-01-31] MEDS ORDERED: SODIUM CHLORIDE 0.9% FLUSH 10 ML FLUSH IVF PRN (03:00)
[2017-01-31 03:26] LABS: AUTOMATED NEUTROPHIL # 5.5 TH/MM3 (1.8-7.7); BASOPHIL # 0.1 TH/MM3 (0-0.2); BASOPHIL % 0.7 % (0.0-2.0); EOSINOPHIL # 0.1 TH/MM3 (0-0.4); EOSINOPHIL % 1.5 % (0.0-4.0); HEMATOCRIT 40.7 % (39.0-51.0); HEMO FLAGS DIFF FINAL; LYMPH % 30.4 % (9.0-44.0); LYMPHOCYTE # 2.9 TH/MM3 (1.0-4.8); MEAN CELL VOLUME 88.9 FL (80.0-100.0); MEAN CORPUSCULAR HEMOGLOBIN 29.8 PG (27.0-34.0); MEAN CORPUSCULAR HGB CONC 33.5 % (32.0-36.0); MONO % 9.9 % (0.0-8.0); NEUT % 57.5 % (16.0-70.0); PLATELET COUNT 224 TH/MM3 (150-450); RED BLOOD COUNT 4.58 MIL/MM3 (4.50-5.90); RED CELL DISTRIBUTION WIDTH 14.5 % (11.6-17.2); WHITE BLOOD COUNT 9.6 TH/MM3 (4.0-11.0)
[2017-01-31 03:30] LABS: ALT (GPT) 41 U/L (12-78); ANION GAP 7 MEQ/L (5-15); AST (GOT) 58 U/L (15-37); BICARBONATE 25.8 MEQ/L (21.0-32.0); BLOOD UREA NITROGEN 22 MG/DL (7-18); CHLORIDE 107 MEQ/L (98-107); GLOMERULAR FILTRATION RATE 68 ML/MIN (>89); POTASSIUM 3.8 MEQ/L (3.5-5.1); SODIUM (NA) 140 MEQ/L (136-145)
[2017-01-31 03:32] LABS: ALKALINE PHOSPHATASE 86 U/L (45-117); TOTAL BILIRUBIN ADULT 0.8 MG/DL (0.2-1.0)
[2017-01-31 03:37] LABS: ACETAMINOPHEN LESS THAN 2.0 MCG/ML (10.0-30.0); ALCOHOL LESS THAN 3 MG/DL (0-5)
--- NOTE | 2017-01-31 07:38 | PD ---
HPI Chief Complaint: Psychiatric Symptoms Time Seen by Provider: 02:43 Travel History International Travel<30 days: No Contact w/Intl Traveler<30days: No Traveled to known affect area: No History of Present Illness HPI 36 year-old male presents to the emergency department in the custody of [place] police along with EMS as patient was found wandering in the street and walking in front of cars. Patient did not sustain any injuries her boat hand staff and law enforcement officers and no injury well being apprehended. No fall to the ground no head injury. 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 Patient here speaks in rambling sentences and denies any pain: No head pain chest pain back pain neck pain abdominal pain extremity pain. CV patient otherwise uncooperative requiring physical restraints. Patient was just hospitalized here at [place] 01/27/17 [facility] Past Medical History Narrative Medical Anxiety depression and paranoid schizophrenia; orbital fracture maxillofacial repair: Tobacco use alcohol use substance use upon nursing notes reviewed Arthritis: No Asthma: No Autoimmune Disease: No Blood Disorders: No Anxiety: No Depression: Yes Heart Rhythm Problems: Yes Cancer: No Cardiovascular Problems: Yes High Cholesterol: No Chest Pain: No Congestive Heart Failure: No COPD: No Cerebrovascular Accident: No Diabetes: No Diminished Hearing: No Endocrine: No Gastrointestinal Disorders: No GERD: No Glaucoma: No Genitourinary: No Headaches: No Hepatitis: No Hiatal Hernia: No Hypertension: No Immune Disorder: No Implanted Vascular Access Dvce: Yes Musculoskeletal: No Neurologic: No Psychiatric: Yes (Schizophrenia) Reproductive: No Respiratory: No Immunizations Current: No Migraines: No Myocardial Infarction: No Schizophrenia: Yes Seizures: No Sleep Apnea: No Ulcer: No Tetanus Vaccination: Unknown Influenza Vaccination: No Past Surgical History Abdominal Surgery: No AICD: No Appendectomy: No Body Medical Devices: Facial plate Cardiac Surgery: No Cholecystectomy: No Ear Surgery: Yes Endocrine Surgery: No Eye Surgery: Yes (FX ORBIT REPAIR) Genitourinary Surgery: No Gynecologic Surgery: No Neurologic Surgery: No Oral Surgery: Yes ( Facial plate) Pacemaker: No Thoracic Surgery: No Other Surgery: Yes (plate in face) Social History Alcohol Use: Yes Tobacco Use: Yes Substance Use: Yes Allergies-Medications (Allergen,Severity, Reaction): Coded Allergies: shellfish derived (Unverified Allergy, Severe, EDEMA, HIVES, 12/25/16) Reported Meds & Prescriptions Reported Meds & Active Scripts Active Reported Zantac (Ranitidine HCl) 150 Mg Tab 150 Mg PO BID Risperdal (Risperidone) 1 Mg Tab 1 Mg PO BID Prozac (Fluoxetine HCl) 20 Mg/5 Ml Liqd 10 Mg PO DAILY Keflex (Cephalexin Monohydrate) 500 Mg Cap 500 Mg PO TID Review of Systems ROS Limitations: Clinical Condition, Uncooperative, Poor Historian Except as stated in HPI: all other systems reviewed are Neg Physical Exam Narrative GENERAL: Well-developed well-nourished male in no acute distress no respiratory distress SKIN: Warm and dry. HEAD: Normocephalic. EYES: No scleral icterus. No injection or drainage. NECK: Supple, trachea midline. No JVD or lymphadenopathy. CARDIOVASCULAR: Regular rate and rhythm without murmurs, gallops, or rubs. RESPIRATORY: Breath sounds equal bilaterally. No accessory muscle use. GASTROINTESTINAL: Abdomen soft, non-tender, nondistended. MUSCULOSKELETAL: No cyanosis, or edema. BACK: Nontender without obvious deformity. No CVA tenderness. Data Data Last Documented VS Vital Signs Date Time Temp Pulse Resp B/P (MAP) Pulse Ox O2 Delivery O2 Flow Rate FiO2 01/31/17 02:50 98.9 110 25 127/88 (101) 100 Orders Orders Complete Blood Count With Diff (01/31/17 02:52) Comprehensive Metabolic Panel (01/31/17 02:52) Iv Access Insert/Monitor (01/31/17 02:52) Psych Screen (01/31/17 02:52) Sodium Chloride 0.9% Flush (Ns Flush) (01/31/17 03:00) Drug Screen, Random Urine (01/31/17 02:52) Alcohol (Ethanol) (01/31/17 02:52) Salicylates (Aspirin) (01/31/17 02:52) Tylenol (Acetaminophen) (01/31/17 02:52) Lorazepam Inj (Ativan Inj) (01/31/17 03:00) Labs Laboratory Tests Test 01/31/17 03:00 White Blood Count 9.6 TH/MM3 Red Blood Count 4.58 MIL/MM3 Hemoglobin 13.6 GM/DL Hematocrit 40.7 % Mean Corpuscular Volume 88.9 FL Mean Corpuscular Hemoglobin 29.8 PG Mean Corpuscular Hemoglobin Concent 33.5 % Red Cell Distribution Width 14.5 % Platelet Count 224 TH/MM3 Mean Platelet Volume 9.8 FL Neutrophils (%) (Auto) 57.5 % Lymphocytes (%) (Auto) 30.4 % Monocytes (%) (Auto) 9.9 % Eosinophils (%) (Auto) 1.5 % Basophils (%) (Auto) 0.7 % Neutrophils # (Auto) 5.5 TH/MM3 Lymphocytes # (Auto) 2.9 TH/MM3 Monocytes # (Auto) 0.9 TH/MM3 Eosinophils # (Auto) 0.1 TH/MM3 Basophils # (Auto) 0.1 TH/MM3 CBC Comment DIFF FINAL Differential Comment Blood Urea Nitrogen 22 MG/DL Creatinine 1.41 MG/DL Random Glucose 82 MG/DL Total Protein 8.1 GM/DL Albumin 4.3 GM/DL Calcium Level 9.7 MG/DL Alkaline Phosphatase 86 U/L Aspartate Amino Transf (AST/SGOT) 58 U/L Alanine Aminotransferase (ALT/SGPT) 41 U/L Total Bilirubin 0.8 MG/DL Sodium Level 140 MEQ/L Potassium Level 3.8 MEQ/L Chloride Level 107 MEQ/L Carbon Dioxide Level 25.8 MEQ/L Anion Gap 7 MEQ/L Estimat Glomerular Filtration Rate 68 ML/MIN Salicylates Level 3.6 MG/DL Acetaminophen Level LESS THAN 2.0 MCG/ML Ethyl Alcohol Level LESS THAN 3 MG/DL MDM Medical Decision Making Medical Screen Exam Complete: Yes Emergency Medical Condition: Yes Medical Record Reviewed: Yes Interpretation(s) CBC & BMP Diagram 01/31/17 03:00 Total Protein 8.1 #, Albumin 4.3, Calcium Level 9.7, Alkaline Phosphatase 86, Aspartate Amino Transf (AST/SGOT) 58 H, Alanine Aminotransferase (ALT/SGPT) 41, Total Bilirubin 0.8 Vital Signs Date Time Temp Pulse Resp B/P (MAP) Pulse Ox O2 Delivery O2 Flow Rate FiO2 01/31/17 02:50 98.9 110 25 127/88 (101) 100 Differential Diagnosis Polysubstance abuse mood disorder or paranoid schizophrenia psychosis Narrative Course IV access obtained specimens collected and sent for resulting patient restrained Patient resting quietly voicing no concerns or complaints Laboratory grossly within normal range patient refusing to provide urine specimen Agent is medically clear for psychiatric evaluation is most likely going to require repeat admission Physician Communication Physician Communication Patient is medically cleared for psychiatric evaluation Diagnosis Primary Impression: Substance induced mood disorder Additional Impressions: Schizophrenia Medical clearance for psychiatric admission Suicidal ideations Radha Lion MD Jan 31, 2017 07:38
[2017-01-31 09:09] VITALS: BP 135/87; PULSE 88; RESP 16; TEMP 98.2; O2SAT 99
--- NOTE | 2017-01-31 10:16 | PD ---
Physical Exam Date Seen by Provider: Jan 31, 2017 Data Data Last Documented VS Vital Signs Date Time Temp Pulse Resp B/P (MAP) Pulse Ox O2 Delivery O2 Flow Rate FiO2 01/31/17 09:09 98.2 88 16 135/87 (103) 99 Room Air Orders Orders Complete Blood Count With Diff (01/31/17 02:52) Comprehensive Metabolic Panel (01/31/17 02:52) Iv Access Insert/Monitor (01/31/17 02:52) Psych Screen (01/31/17 02:52) Sodium Chloride 0.9% Flush (Ns Flush) (01/31/17 03:00) Drug Screen, Random Urine (01/31/17 02:52) Alcohol (Ethanol) (01/31/17 02:52) Salicylates (Aspirin) (01/31/17 02:52) Tylenol (Acetaminophen) (01/31/17 02:52) Lorazepam Inj (Ativan Inj) (01/31/17 03:00) Ed Discharge Order (01/31/17 10:13) Labs Laboratory Tests Test 01/31/17 03:00 White Blood Count 9.6 TH/MM3 Red Blood Count 4.58 MIL/MM3 Hemoglobin 13.6 GM/DL Hematocrit 40.7 % Mean Corpuscular Volume 88.9 FL Mean Corpuscular Hemoglobin 29.8 PG Mean Corpuscular Hemoglobin Concent 33.5 % Red Cell Distribution Width 14.5 % Platelet Count 224 TH/MM3 Mean Platelet Volume 9.8 FL Neutrophils (%) (Auto) 57.5 % Lymphocytes (%) (Auto) 30.4 % Monocytes (%) (Auto) 9.9 % Eosinophils (%) (Auto) 1.5 % Basophils (%) (Auto) 0.7 % Neutrophils # (Auto) 5.5 TH/MM3 Lymphocytes # (Auto) 2.9 TH/MM3 Monocytes # (Auto) 0.9 TH/MM3 Eosinophils # (Auto) 0.1 TH/MM3 Basophils # (Auto) 0.1 TH/MM3 CBC Comment DIFF FINAL Differential Comment Blood Urea Nitrogen 22 MG/DL Creatinine 1.41 MG/DL Random Glucose 82 MG/DL Total Protein 8.1 GM/DL Albumin 4.3 GM/DL Calcium Level 9.7 MG/DL Alkaline Phosphatase 86 U/L Aspartate Amino Transf (AST/SGOT) 58 U/L Alanine Aminotransferase (ALT/SGPT) 41 U/L Total Bilirubin 0.8 MG/DL Sodium Level 140 MEQ/L Potassium Level 3.8 MEQ/L Chloride Level 107 MEQ/L Carbon Dioxide Level 25.8 MEQ/L Anion Gap 7 MEQ/L Estimat Glomerular Filtration Rate 68 ML/MIN Salicylates Level 3.6 MG/DL Acetaminophen Level LESS THAN 2.0 MCG/ML Ethyl Alcohol Level LESS THAN 3 MG/DL MDM Medical Record Reviewed: Yes Supervised Visit with JEAN: No Narrative Course Patient is a 36-year-old male who was seen by Dr. Lion and medically cleared for psychiatric evaluation. Patient was seen by Ursula with [facility], Brandt act was lifted by her. Patient was deemed malingering, ultimate plan for patient to be sent home. Patient at this time denies suicidal or homicidal ideation. Patient will follow up at the [facility]. He will return to ER as needed. Diagnosis Primary Impression: Substance induced mood disorder Additional Impressions: Suicidal ideations Medical clearance for psychiatric admission Schizophrenia [facility] Patient Instructions: General Instructions, Mood Disorders (ED) Departure Forms: Tests/Procedures Disposition: 01 DISCHARGE HOME Condition: Stable Richelle Crain DO Jan 31, 2017 10:16
--- NOTE | 2017-01-31 10:33 | PD ---
History of Present Illness Chief Complaint: Psychiatric Symptoms Time Seen by Provider: 10:25 Travel History International Travel<30 Days: No Contact w/Intl Traveler<30days: No Known affected area: No Legal Status Legal Status: Brandt Act Brandt Act Signed By: Remberto Real History of Present Illness: History of Present Illness HPI 36 year-old male well known to [facility] as well as psychiatry who presents to ED under a Brandt act initiated by law enforcement. The Brandt act alleges that he was observed walking in the middle of the road screaming at passing vehicles. They had received multiple calls on Mr. Robles standing in front of traffic. Vehicles were slamming their brakes to avoid hitting him. Patient did not sustain any injuries her oil field pumper staff and law enforcement officers and no injury while being apprehended. The patient arrived to Ed speaking in rambling sentences and denies any pain otherwise uncooperative requiring physical restraints. EMR reviewed. He has presented to ED on twenty three different occasions usually under a Brandt act. He was admitted to [facility] on Jan 28 and discharged on January 27, 2017. Documentation from Dr. Sterling is included here in this report " Case discussed with nursing staff who reports that the patient was entitled and somewhat uncooperative overnight. On my examination today, the patient is in good spirits. He is clinically sober. He asks to be released from the inpatient psychiatric unit today. When I ask about the allegations in the Brandt act, he tells me "I don't remember what the Brandt act was for." He admits that he has been off of any psychotropic medications for several months. Despite this, he reports that his mood is currently good, and I can elicit no depressive or hypomanic/manic symptoms. He reports that he is sleeping and eating well. He denies any audiovisual hallucinations at this time and denies any command auditory hallucinations. He does admit to having experienced some auditory hallucinations in the past, possibly in the context of substance use. No current delusional material. He denies any suicidal or homicidal ideation, intent or plan on direct questioning and contracts for safety. He is agreeable to following up with outpatient psychiatry." This morning He is asleep but awakens with verbal stimuli . He is refusing to answer most questions and mumbles.When awake patient does not appear internally preoccupied.Patient becomes angry when he is asked to participate in psychiatric evaluation. This is his usual behavior . Patient at thsi point does not meet Brandt act criteria. When he he isbeing discharged he makes verbal threats towards staff but maintains behavioral control. He is ambulating with no gait disturbance and clear speech. PFSH Past Medical History Arthritis: No Asthma: No Autoimmune Disease: No Blood Disorders: No Anxiety: No Depression: Yes Heart Rhythm Problems: Yes Cancer: No Cardiovascular Problems: Yes High Cholesterol: No Chest Pain: No Congestive Heart Failure: No COPD: No Cerebrovascular Accident: No Diabetes: No Diminished Hearing: No Endocrine: No Gastrointestinal Disorders: No GERD: No Glaucoma: No Genitourinary: No Headaches: No Hepatitis: No Hiatal Hernia: No Hypertension: No Immune Disorder: No Implanted Vascular Access Dvce: Yes Musculoskeletal: No Neurologic: No Psychiatric: Yes (Schizophrenia) Reproductive: No Respiratory: No Immunizations Current: No Migraines: No Myocardial Infarction: No Schizophrenia: Yes Seizures: No Sleep Apnea: No Ulcer: No Tetanus Vaccination: Unknown Influenza Vaccination: No Past Surgical History Abdominal Surgery: No AICD: No Appendectomy: No Body Medical Devices: Facial plate Cardiac Surgery: No Cholecystectomy: No Ear Surgery: Yes Endocrine Surgery: No Eye Surgery: Yes (FX ORBIT REPAIR) Genitourinary Surgery: No Gynecologic Surgery: No Neurologic Surgery: No Oral Surgery: Yes ( Facial plate) Pacemaker: No Thoracic Surgery: No Other Surgery: Yes (plate in face) Psychiatric History Psychiatric History Hx Psychiatric Treatment: Patient with a hx of schizophrenia and depression. Last inpatient psychiatric admission on unit 2700 Jan 28 - Jan 29 2017. Previous inpatient admissions at [facility] [place] and [facility] in [facility]. History of Inpatient Treatment: Yes Guns or firearms in home: No Social History Single, homeless male. Hx Alcohol Use: Yes Hx Tobacco Use: Yes Hx Substance Use: Yes Substance Use Type: Crack, Marijuana Other Substances Used: HX OF CRACK PER RECORDS Hx of Substance Use Treatment: Yes Family Psychiatric History Unknown Allergies-Medications (Allergen,Severity, Reaction): Coded Allergies: shellfish derived (Unverified Allergy, Severe, EDEMA, HIVES, 12/25/16) Reported Meds & Prescriptions Reported Meds & Active Scripts Active Reported Zantac (Ranitidine HCl) 150 Mg Tab 150 Mg PO BID Risperdal (Risperidone) 1 Mg Tab 1 Mg PO BID Prozac (Fluoxetine HCl) 20 Mg/5 Ml Liqd 10 Mg PO DAILY Keflex (Cephalexin Monohydrate) 500 Mg Cap 500 Mg PO TID Review of Systems ROS Limitations: Uncooperative Mental Status Examination Appearance: Dirty, Malodorous Consciousness: Alert Orientation: Person, Place Motor Activity: Normal gait Speech: Unremarkable Language: Adequate Fund of Knowledge: Adequate (unable to assess) Attention and Concentration: Adequate Memory: Unremarkable (unable to test) Mood: Angry Affect: Appropriate Thought Process & Associations: Other (does not appear to be responding to internal stimuli) Thought Content: Other (Does not appear to be) Hallucination Type: Other (Not reponding) Delusion Type: None Suicidal Ideation: No Suicidal Plan: No Suicidal Intention: No Homicidal Ideation: No Homicidal Plan: No Homicidal Intention: No Insight: Poor Judgment: Impulsive MDM Medical Decision Making Medical Record Reviewed: Yes Assessment/Plan 36 year-old male well known to [facility] as well as psychiatry who presents to ED under a Brandt act initiated by law enforcement. The Brandt act alleges that he was observed walking in the middle of the road screaming at passing vehicles. They had received multiple calls on Mr. Robles standing in front of traffic. Vehicles were slamming their brakes to avoid hitting him. Patient did not sustain any injuries her oil field pumper staff and law enforcement officers and no injury while being apprehended. The patient arrived to Ed speaking in rambling sentences and denies any pain otherwise uncooperative requiring physical restraints. Patient was monitored in ED. At the time of this evaluation he was initially uncooperative and only mumbling some responses. It is determined that this patient does not meet Brandt act criteria. he is most likely under the influence of crack but he has historically refused to provide urine sample. He will engage with staff when he is ready to be discharged. He ambulated well with no gait impairment. His speech was clear and appropriate while he was being escorted from Ed. Patient will most likely present to ED once again in near future if not today at a later time. Brandt act is lifted. Orders Orders Complete Blood Count With Diff (01/31/17 02:52) Comprehensive Metabolic Panel (01/31/17 02:52) Iv Access Insert/Monitor (01/31/17 02:52) Psych Screen (01/31/17 02:52) Sodium Chloride 0.9% Flush (Ns Flush) (01/31/17 03:00) Drug Screen, Random Urine (01/31/17 02:52) Alcohol (Ethanol) (01/31/17 02:52) Salicylates (Aspirin) (01/31/17 02:52) Tylenol (Acetaminophen) (01/31/17 02:52) Lorazepam Inj (Ativan Inj) (01/31/17 03:00) Ed Discharge Order (01/31/17 10:13) Results Vital Signs Date Time Temp Pulse Resp B/P (MAP) Pulse Ox O2 Delivery O2 Flow Rate FiO2 01/31/17 09:09 98.2 88 16 135/87 (103) 99 Room Air 01/31/17 02:50 98.9 110 25 127/88 (101) 100 Laboratory Tests Test 01/31/17 03:00 White Blood Count 9.6 Red Blood Count 4.58 Hemoglobin 13.6 Hematocrit 40.7 Mean Corpuscular Volume 88.9 Mean Corpuscular Hemoglobin 29.8 Mean Corpuscular Hemoglobin Concent 33.5 Red Cell Distribution Width 14.5 Platelet Count 224 Mean Platelet Volume 9.8 Neutrophils (%) (Auto) 57.5 Lymphocytes (%) (Auto) 30.4 Monocytes (%) (Auto) 9.9 Eosinophils (%) (Auto) 1.5 Basophils (%) (Auto) 0.7 Neutrophils # (Auto) 5.5 Lymphocytes # (Auto) 2.9 Monocytes # (Auto) 0.9 Eosinophils # (Auto) 0.1 Basophils # (Auto) 0.1 CBC Comment DIFF FINAL Differential Comment Blood Urea Nitrogen 22 Creatinine 1.41 Random Glucose 82 Total Protein 8.1 Albumin 4.3 Calcium Level 9.7 Alkaline Phosphatase 86 Aspartate Amino Transf (AST/SGOT) 58 Alanine Aminotransferase (ALT/SGPT) 41 Total Bilirubin 0.8 Sodium Level 140 Potassium Level 3.8 Chloride Level 107 Carbon Dioxide Level 25.8 Anion Gap 7 Estimat Glomerular Filtration Rate 68 Salicylates Level 3.6 Acetaminophen Level LESS THAN 2.0 Ethyl Alcohol Level LESS THAN 3 Diagnosis Primary Impression: Substance induced mood disorder Additional Impression: Schizophrenia Ruled Out: Suicidal ideations Referrals: [facility] Behavioral Departure Forms: Tests/Procedures Patient Instructions: General Instructions, Mood Disorders (ED) Med/ Other Pt Specific Info: No Meds Exist/No RX given Disposition: 01 DISCHARGE HOME Condition: Stable Problem Qualifiers Additional Impression: Schizophrenia Qualified Codes: F20.9 - Schizophrenia, unspecified Ursula Santos [facility] Jan 31, 2017 10:33
== END 2017-01-31 10:49 | disposition home or self-care (01) ==
LOC: NEPC 02:37
DX: Z02.89 Encounter for other administrative examinations (principal); F19.94 Other psychoactive substance use, unspecified with psychoactive substance-induced mood disorder; F20.9 Schizophrenia, unspecified; Z87.891 Personal history of nicotine dependence
CPT/HCPCS: 80053; 80307; 85025; 96374; 99284; J2060

== ENCOUNTER 2017-02-14 04:52 | Emergency (ER) | payer OTHER ==
[~2017-02-14] VITALS: Ht 180.3 cm; Wt 1.0 kg
[2017-02-14 05:12] VITALS: BP 152/88; PULSE 98; RESP 16; TEMP 98; O2SAT 97
[2017-02-14 05:16] VITALS: BP 122/65; PULSE 100; RESP 18; TEMP 98.2; O2SAT 99
--- NOTE | 2017-02-14 05:31 | PD ---
HPI Chief Complaint: Psychiatric Symptoms Time Seen by Provider: 05:01 Travel History International Travel<30 days: No Contact w/Intl Traveler<30days: No Traveled to known affect area: No History of Present Illness HPI 36-year-old black male well-known to the ER staff for multiple ER visits for psychiatric evaluation and substance abuse. Patient once again presents under Brandt act. The patient notified PD that people are following him. The patient also had made suicidal statements. He denies any toxic ingestions. He admits to being discharged yesterday from [facility] after being evaluated. Patient denies any homicidal ideation. No medical complaints. PFSH Past Medical History Arthritis: No Asthma: No Autoimmune Disease: No Blood Disorders: No Anxiety: No Depression: Yes Heart Rhythm Problems: Yes Cancer: No Cardiovascular Problems: Yes High Cholesterol: No Chest Pain: No Congestive Heart Failure: No COPD: No Cerebrovascular Accident: No Diabetes: No Diminished Hearing: No Endocrine: No Gastrointestinal Disorders: No GERD: No Glaucoma: No Genitourinary: No Headaches: No Hepatitis: No Hiatal Hernia: No Hypertension: No Immune Disorder: No Implanted Vascular Access Dvce: Yes Musculoskeletal: No Neurologic: No Psychiatric: Yes (Schizophrenia) Reproductive: No Respiratory: No Immunizations Current: No Migraines: No Myocardial Infarction: No Schizophrenia: Yes Seizures: No Sleep Apnea: No Ulcer: No Tetanus Vaccination: < 5 Years Past Surgical History Abdominal Surgery: No AICD: No Appendectomy: No Body Medical Devices: Facial plate Cardiac Surgery: No Cholecystectomy: No Ear Surgery: Yes Endocrine Surgery: No Eye Surgery: Yes (FX ORBIT REPAIR) Genitourinary Surgery: No Gynecologic Surgery: No Neurologic Surgery: No Oral Surgery: Yes ( Facial plate) Pacemaker: No Thoracic Surgery: No Other Surgery: Yes (plate in face) Social History Alcohol Use: Yes Tobacco Use: Yes Substance Use: Yes Allergies-Medications (Allergen,Severity, Reaction): Coded Allergies: shellfish derived (Verified Allergy, Severe, EDEMA, HIVES, 02/14/17) Reported Meds & Prescriptions Reported Meds & Active Scripts Active Review of Systems Except as stated in HPI: all other systems reviewed are Neg General / Constitutional: No: Fever Eyes: No: Visual changes HENT: No: Headaches Cardiovascular: No: Chest Pain or Discomfort Respiratory: No: Shortness of Breath Gastrointestinal: No: Abdominal Pain Genitourinary: No: Dysuria Musculoskeletal: No: Pain Skin: No Rash Neurologic: No: Weakness Psychiatric: Positive: Suicidal Ideations, Disorder of Thought, Mood Disorder, Substance Abuse, No: Anxiety, Depression, Homicidal Ideation Endocrine: No: Polydipsia Hematologic/Lymphatic: No: Easy Bruising Physical Exam Narrative GENERAL: Well-nourished, well-developed patient. SKIN: Warm and dry. HEAD: Normocephalic and atraumatic. EYES: No scleral icterus. No injection or drainage. ENT: No nasal drainage noted. Mucous membranes pink. Airway patent. NECK: Supple, trachea midline. Moves head freely without obvious discomfort. CARDIOVASCULAR: Regular rate and rhythm without murmurs, gallops, or rubs. RESPIRATORY: Breath sounds equal bilaterally. No accessory muscle use. GASTROINTESTINAL: Abdomen soft, non-tender, nondistended. EXTREMITIES: No cyanosis or edema. BACK: Nontender without obvious deformity. No CVA tenderness. NEURO: Patient is alert and oriented. no sensorimotor deficits. Nonfocal. Normal speech. PSYCH: Positive delusions. Positive visual hallucinations. Data Data Last Documented VS Vital Signs Date Time Temp Pulse Resp B/P (MAP) Pulse Ox O2 Delivery O2 Flow Rate FiO2 02/14/17 05:16 98.2 100 18 122/65 (84) 99 Orders Orders Psych Screen (02/14/17 05:26) [facility] Medical Decision Making Medical Screen Exam Complete: Yes Emergency Medical Condition: Yes Medical Record Reviewed: Yes Differential Diagnosis MDM: High Differential diagnoses: Schizophrenia, schizoaffective disorder, bipolar, anxiety, depression, adjustment reaction, mood disorder NOS, ODD, depressive disorder NOS, dementia, dementia with agitation, psychosis NOS, substance induced mood disorder, DMDD, Asperger syndrome, infection,electrolyte abnormality, malingering. Narrative Course Mental health screening discussed with the patient. Psychiatric screen ordered. The patient's been medically clear. This is medical clearance for psychiatric admission Diagnosis Primary Impression: Medical clearance for psychiatric admission Condition: Stable (no light states) Mal Bailey Feb 14, 2017 05:31
[2017-02-14 07:12] VITALS: BP 130/70; PULSE 98; RESP 18; TEMP 98.2; O2SAT 99
[2017-02-14 11:04] VITALS: BP 141/87; PULSE 78; RESP 18; TEMP 98.5; O2SAT 100
--- NOTE | 2017-02-14 13:26 | PD ---
History of Present Illness Chief Complaint: Psychiatric Symptoms Time Seen by Provider: 13:15 Travel History International Travel<30 Days: No Contact w/Intl Traveler<30days: No Known affected area: No Legal Status Legal Status: Rikki Act Brandt Act Signed By: Alicia Brandt Act Comment: BA signed by: RAULITO MEJIAS Badge#[id number], Case# [id number] History of Present Illness: Patient well known to this physician from multiple previous emergency department visits and multiple psychiatric admissions. He is no longer complaining of suicidal or homicidal ideation, plan or intent. He is no longer complaining of psychotic symptoms. He is wanting to leave. His cognition is intact. He may seek treatment on an outpatient basis, although he rarely does so. He has been positive for cocaine on multiple occasions but apparently will not allow testing of his urine on this occasion. Therefore he is being discharged. COUNT INCLUDES [facility] Past Medical History Arthritis: No Asthma: No Autoimmune Disease: No Blood Disorders: No Anxiety: No Depression: Yes Heart Rhythm Problems: Yes Cancer: No Cardiovascular Problems: Yes High Cholesterol: No Chest Pain: No Congestive Heart Failure: No COPD: No Cerebrovascular Accident: No Diabetes: No Diminished Hearing: No Endocrine: No Gastrointestinal Disorders: No GERD: No Glaucoma: No Genitourinary: No Headaches: No Hepatitis: No Hiatal Hernia: No Hypertension: No Immune Disorder: No Implanted Vascular Access Dvce: Yes Musculoskeletal: No Neurologic: No Psychiatric: Yes (Schizophrenia) Reproductive: No Respiratory: No Immunizations Current: No Migraines: No Myocardial Infarction: No Schizophrenia: Yes Seizures: No Sleep Apnea: No Ulcer: No Tetanus Vaccination: < 5 Years Past Surgical History Abdominal Surgery: No AICD: No Appendectomy: No Body Medical Devices: Facial plate Cardiac Surgery: No Cholecystectomy: No Ear Surgery: Yes Endocrine Surgery: No Eye Surgery: Yes (FX ORBIT REPAIR) Genitourinary Surgery: No Gynecologic Surgery: No Neurologic Surgery: No Oral Surgery: Yes ( Facial plate) Pacemaker: No Thoracic Surgery: No Other Surgery: Yes (plate in face) Psychiatric History Psychiatric History Hx Psychiatric Treatment: Patient with a hx of schizophrenia and depression. Last inpatient psychiatric admission on unit 2700 Jan 28 - Jan 29 2017. This physician notes the patient has been given multiple psychiatric diagnoses. It is unclear as to whether he has schizophrenia as he is so frequently positive for cocaine. Previous inpatient admissions at [facility] and [facility] in [facility]. History of Inpatient Treatment: Yes Guns or firearms in home: No Social History Hx Alcohol Use: Yes Hx Tobacco Use: Yes Hx Substance Use: Yes Substance Use Type: Crack, Marijuana Other Substances Used: HX OF CRACK PER RECORDS Hx of Substance Use Treatment: Yes Allergies-Medications (Allergen,Severity, Reaction): Coded Allergies: shellfish derived (Verified Allergy, Severe, EDEMA, HIVES, 02/14/17) Reported Meds & Prescriptions Reported Meds & Active Scripts Active Review of Systems Except as stated in HPI: all other systems reviewed are Neg Mental Status Examination Appearance: Appropriate Consciousness: Alert Orientation: x4 Motor Activity: Normal gait Speech: Unremarkable Language: Adequate Fund of Knowledge: Adequate Attention and Concentration: Adequate Memory: Unremarkable Mood: Appropriate Affect: Appropriate Thought Process & Associations: Intact Thought Content: Appropriate Hallucination Type: None Delusion Type: None Suicidal Ideation: No Suicidal Plan: No Suicidal Intention: No Homicidal Ideation: No Homicidal Plan: No Homicidal Intention: No Insight: Adequate Judgment: Adequate MDM Medical Decision Making Medical Record Reviewed: Yes Assessment/Plan Patient interviewed at bedside. Medical record reviewed. Case discussed with nurse Nicole. This is one of many emergency department visits for this patient. This physician feels it is inappropriate to admit the patient for psychiatric reasons as it is counter therapeutic to enable his continuing manipulation of the system and continuing drug use. Orders Orders Psych Screen (02/14/17 05:26) Diet Regular Basic (02/14/17 Breakfast) Diet Regular Basic (02/14/17 Lunch) Results Vital Signs Date Time Temp Pulse Resp B/P (MAP) Pulse Ox O2 Delivery O2 Flow Rate FiO2 02/14/17 11:04 98.5 78 18 141/87 (105) 100 Room Air 02/14/17 07:12 98.2 98 18 130/70 (90) 99 02/14/17 05:16 98.2 100 18 122/65 (84) 99 02/14/17 05:12 98.0 98 16 152/88 (109) 97 Diagnosis Primary Impression: Adjustment disorder with mixed disturbance of emotions and conduct Condition: Stable Alexander,Romeo A. MD Feb 14, 2017 13:26
--- NOTE | 2017-02-14 13:42 | PD ---
Physical Exam Date Seen by Provider: Feb 14, 2017 Time Seen by Provider: 13:39 Data Data Last Documented VS Vital Signs Date Time Temp Pulse Resp B/P (MAP) Pulse Ox O2 Delivery O2 Flow Rate FiO2 02/14/17 13:36 02/14/17 11:04 98.5 78 18 100 Room Air Orders Orders Psych Screen (02/14/17 05:26) Diet Regular Basic (02/14/17 Breakfast) Diet Regular Basic (02/14/17 Lunch) Ed Discharge Order (02/14/17 13:43) MDM Medical Record Reviewed: Yes Supervised Visit with JEAN: No Narrative Course 36-year-old male well-known to the emergency room presents under a Brandt act initiated by police department. Per Brandt act, patient was expressing suicidal ideation and paranoia. He has history of schizophrenia and substance induced mood disorder. Patient is well-known to the emergency room, he has been here 15 times in the past 3 months. Patient was seen by the psychiatrist and Brandt act was lifted, he was not felt to be acutely psychotic or a threat to himself or others at this time. Patient is anxious to leave and immediately requests a bus pass. I suspect some malingering. He is stable for outpatient follow-up. Diagnosis Primary Impression: Adjustment disorder with mixed disturbance of emotions and conduct Additional Instruction: Follow-up per psychiatrist's recommendations. Disposition: 01 DISCHARGE HOME Condition: Stable Kelly Samuels Feb 14, 2017 13:42
== END 2017-02-14 15:30 | disposition home or self-care (01) ==
LOC: NEPD 04:52 → NEPJ 15:30
DX: F43.25 Adjustment disorder with mixed disturbance of emotions and conduct (principal); F20.9 Schizophrenia, unspecified; Z72.0 Tobacco use
CPT/HCPCS: 99283

== ENCOUNTER 2017-02-18 21:58 | Emergency (ER) | payer OTHER ==
[~2017-02-18] VITALS: Ht 175.3 cm; Wt 70.0 kg
[2017-02-18] MEDS ORDERED: HALOPERIDOL LACTATE 5 MG/ML AMP ONE (22:10)
[2017-02-18] MEDS ORDERED: MIDAZOLAM HCL 5 MG/ML VIAL (1 ML) ONE (22:10)
[2017-02-18] MEDS ORDERED: HALOPERIDOL LACTATE 5 MG/ML AMP IM ONE (22:15)
[2017-02-18] MEDS ORDERED: MIDAZOLAM HCL 5 MG/ML VIAL (1 ML) IM ONE (22:15)
[2017-02-18 22:16] VITALS: BP 139/97; PULSE 104; RESP 16; TEMP 98.3; O2SAT 99
[2017-02-18 22:25] VITALS: O2SAT 98
[2017-02-18 22:52] LABS: AUTOMATED NEUTROPHIL # 3.6 TH/MM3 (1.8-7.7); BASOPHIL # 0.1 TH/MM3 (0-0.2); BASOPHIL % 1.1 % (0.0-2.0); EOSINOPHIL # 0.2 TH/MM3 (0-0.4); EOSINOPHIL % 2.9 % (0.0-4.0); HEMATOCRIT 42.3 % (39.0-51.0); HEMO FLAGS DIFF FINAL; LYMPH % 44.1 % (9.0-44.0); LYMPHOCYTE # 3.7 TH/MM3 (1.0-4.8); MEAN CELL VOLUME 91.6 FL (80.0-100.0); MEAN CORPUSCULAR HEMOGLOBIN 29.3 PG (27.0-34.0); MONO % 8.4 % (0.0-8.0); NEUT % 43.5 % (16.0-70.0); PLATELET COUNT 260 TH/MM3 (150-450); RED BLOOD COUNT 4.62 MIL/MM3 (4.50-5.90); WHITE BLOOD COUNT 8.3 TH/MM3 (4.0-11.0)
[2017-02-18 23:22] LABS: ANION GAP 13 MEQ/L (5-15); BICARBONATE 23.2 MEQ/L (21.0-32.0); BLOOD UREA NITROGEN 9 MG/DL (7-18); CHLORIDE 105 MEQ/L (98-107); GLOMERULAR FILTRATION RATE 79 ML/MIN (>89); SODIUM (NA) 141 MEQ/L (136-145)
[2017-02-18 23:23] LABS: ACETAMINOPHEN LESS THAN 2.0 MCG/ML (10.0-30.0); ALCOHOL LESS THAN 3 MG/DL (0-5)
[2017-02-19 00:49] VITALS: BP 118/70; PULSE 64; RESP 20; O2SAT 99
--- NOTE | 2017-02-19 01:24 | PD ---
HPI Chief Complaint: Psychiatric Symptoms Time Seen by Provider: 22:17 Travel History International Travel<30 days: No Contact w/Intl Traveler<30days: No Traveled to known affect area: No History of Present Illness HPI 36yo M brought in as palmer act for suicidal ideation. Pt was being very aggressive and a threat to himself and others and had to be chemically sedated. He was slamming the door. Pt given versed and haldol. Unable to obtain more history. Pt ambulating with no signs of trauma. Pt is well known to use. PFSH Past Medical History Arthritis: No Asthma: No Autoimmune Disease: No Blood Disorders: No Anxiety: No Depression: Yes Heart Rhythm Problems: Yes Cancer: No Cardiovascular Problems: Yes High Cholesterol: No Chest Pain: No Congestive Heart Failure: No COPD: No Cerebrovascular Accident: No Diabetes: No Diminished Hearing: No Endocrine: No Gastrointestinal Disorders: No GERD: No Glaucoma: No Genitourinary: No Headaches: No Hepatitis: No Hiatal Hernia: No Hypertension: No Immune Disorder: No Implanted Vascular Access Dvce: Yes Musculoskeletal: No Neurologic: No Psychiatric: Yes (Schizophrenia) Reproductive: No Respiratory: No Immunizations Current: No Migraines: No Myocardial Infarction: No Schizophrenia: Yes Seizures: No Sleep Apnea: No Ulcer: No Past Surgical History Abdominal Surgery: No AICD: No Appendectomy: No Body Medical Devices: Facial plate Cardiac Surgery: No Cholecystectomy: No Ear Surgery: Yes Endocrine Surgery: No Eye Surgery: Yes (FX ORBIT REPAIR) Genitourinary Surgery: No Gynecologic Surgery: No Neurologic Surgery: No Oral Surgery: Yes ( Facial plate) Pacemaker: No Thoracic Surgery: No Other Surgery: Yes (plate in face) Social History Alcohol Use: Yes (occasionally) Tobacco Use: Yes Substance Use: Yes (marijuana, cocaine) Allergies-Medications (Allergen,Severity, Reaction): Coded Allergies: shellfish derived (Verified Allergy, Severe, EDEMA, HIVES, 02/14/17) Reported Meds & Prescriptions Reported Meds & Active Scripts Active Active Prescriptions or Reported Medications Unobtainable Review of Systems Except as stated in HPI: all other systems reviewed are Neg Physical Exam Narrative GENERAL: 36yo M agitated. SKIN: Focused skin assessment warm/dry. HEAD: Atraumatic. Normocephalic. EYES: Pupils equal and round at 3mm bilaterally. ENT: No nasal bleeding or discharge. Mucous membranes pink and moist. NECK: Trachea midline. No JVD. CARDIOVASCULAR: Regular rate and rhythm. No murmur appreciated. RESPIRATORY: No accessory muscle use. Clear to auscultation. Breath sounds equal bilaterally. GASTROINTESTINAL: Abdomen soft, non-tender, nondistended. MUSCULOSKELETAL: No obvious deformities. No clubbing. No cyanosis. No edema. NEUROLOGICAL: Awake and alert. Moving all extremities. Normal speech. PSYCHIATRIC: Inappropriate mood and affect;poor insight and judgment. Data Data Last Documented VS Vital Signs Date Time Temp Pulse Resp B/P (MAP) Pulse Ox O2 Delivery O2 Flow Rate FiO2 02/19/17 00:49 64 20 118/70 (86) 99 Room Air 02/18/17 22:25 21 02/18/17 22:16 98.3 Orders Orders Midazolam Inj (Versed Inj) (02/18/17 22:15) Haloperidol Inj (Haldol Inj) (02/18/17 22:15) Haloperidol Inj (Haldol Inj) (02/18/17 22:10) Midazolam Inj (Versed Inj) (02/18/17 22:10) Complete Blood Count With Diff (02/18/17 22:17) Basic Metabolic Panel (Bmp) (02/18/17 22:17) Psych Screen (02/18/17 22:17) Drug Screen, Random Urine (02/18/17 22:17) Alcohol (Ethanol) (02/18/17 22:17) Salicylates (Aspirin) (02/18/17 22:17) Tylenol (Acetaminophen) (02/18/17 22:17) Tumbler Drier Operator / Telemetry SIMA.Q8H (02/18/17 22:17) Resp Et Co2 Monitor (02/18/17 ) Ed Discharge Order (02/19/17 03:43) Labs Laboratory Tests Test 02/18/17 22:15 White Blood Count 8.3 TH/MM3 Red Blood Count 4.62 MIL/MM3 Hemoglobin 13.5 GM/DL Hematocrit 42.3 % Mean Corpuscular Volume 91.6 FL Mean Corpuscular Hemoglobin 29.3 PG Mean Corpuscular Hemoglobin Concent 32.0 % Red Cell Distribution Width 15.0 % Platelet Count 260 TH/MM3 Mean Platelet Volume 9.6 FL Neutrophils (%) (Auto) 43.5 % Lymphocytes (%) (Auto) 44.1 % Monocytes (%) (Auto) 8.4 % Eosinophils (%) (Auto) 2.9 % Basophils (%) (Auto) 1.1 % Neutrophils # (Auto) 3.6 TH/MM3 Lymphocytes # (Auto) 3.7 TH/MM3 Monocytes # (Auto) 0.7 TH/MM3 Eosinophils # (Auto) 0.2 TH/MM3 Basophils # (Auto) 0.1 TH/MM3 CBC Comment DIFF FINAL Differential Comment Blood Urea Nitrogen 9 MG/DL Creatinine 1.24 MG/DL Random Glucose 74 MG/DL Calcium Level 9.2 MG/DL Sodium Level 141 MEQ/L Potassium Level 4.0 MEQ/L Chloride Level 105 MEQ/L Carbon Dioxide Level 23.2 MEQ/L Anion Gap 13 MEQ/L Estimat Glomerular Filtration Rate 79 ML/MIN Salicylates Level 2.5 MG/DL Acetaminophen Level LESS THAN 2.0 MCG/ML Ethyl Alcohol Level LESS THAN 3 MG/DL MDM Medical Decision Making Medical Screen Exam Complete: Yes Emergency Medical Condition: Yes Differential Diagnosis Suicidal ideation vs. drug psychosis Narrative Course 36yo M here under palmer act for suicidal ideation. Pt was agitated and a threat to others and himself. Given versed 4mg and haldol 5mg IM. Pt has been on knowledge management consultant and continuous end tidal CO2. Labs reviewed, no leukocytosis. BMP unremarkable. Alcohol negative. Acetaminophen and salicylate negative. Pt is medically clear for psych evaluation. Diagnosis Primary Impression: Acute psychosis Scripts Unable to Obtain Active Prescriptions or Reported Meds Ita Roberts DO Feb 19, 2017 01:24
--- NOTE | 2017-02-19 03:41 | PD ---
Physical Exam Date Seen by Provider: Feb 19, 2017 Time Seen by Provider: 03:38 Narrative GENERAL: This is a well-nourished, well-developed patient, in no apparent distress. SKIN: No rashes, ecchymoses or lesions. Warm and dry. HEAD: Atraumatic. Normocephalic. EYES: PERRL, EOMI, no discharge or injection. No scleral icterus. EARS: Clear NOSE: Nasal turbinates appear normal. THROAT: Mucosa pink and moist. Airway patent. NECK: Trachea midline. supple, moves head freely. LUNGS: Clear to auscultation. CV: Regular in rhythm. ABDOMEN: Soft nontender. EXT: No clubbing cyanosis or edema. Data Data Last Documented VS Vital Signs Date Time Temp Pulse Resp B/P (MAP) Pulse Ox O2 Delivery O2 Flow Rate FiO2 02/19/17 00:49 64 20 118/70 (86) 99 Room Air 02/18/17 22:25 21 02/18/17 22:16 98.3 Orders Orders Midazolam Inj (Versed Inj) (02/18/17 22:15) Haloperidol Inj (Haldol Inj) (02/18/17 22:15) Haloperidol Inj (Haldol Inj) (02/18/17 22:10) Midazolam Inj (Versed Inj) (02/18/17 22:10) Complete Blood Count With Diff (02/18/17 22:17) Basic Metabolic Panel (Bmp) (02/18/17 22:17) Psych Screen (02/18/17 22:17) Drug Screen, Random Urine (02/18/17 22:17) Alcohol (Ethanol) (02/18/17 22:17) Salicylates (Aspirin) (02/18/17 22:17) Tylenol (Acetaminophen) (02/18/17 22:17) General Road Production Manager / Telemetry SIMA.Q8H (02/18/17 22:17) Resp Et Co2 Monitor (02/18/17 ) Labs Laboratory Tests Test 02/18/17 22:15 White Blood Count 8.3 TH/MM3 Red Blood Count 4.62 MIL/MM3 Hemoglobin 13.5 GM/DL Hematocrit 42.3 % Mean Corpuscular Volume 91.6 FL Mean Corpuscular Hemoglobin 29.3 PG Mean Corpuscular Hemoglobin Concent 32.0 % Red Cell Distribution Width 15.0 % Platelet Count 260 TH/MM3 Mean Platelet Volume 9.6 FL Neutrophils (%) (Auto) 43.5 % Lymphocytes (%) (Auto) 44.1 % Monocytes (%) (Auto) 8.4 % Eosinophils (%) (Auto) 2.9 % Basophils (%) (Auto) 1.1 % Neutrophils # (Auto) 3.6 TH/MM3 Lymphocytes # (Auto) 3.7 TH/MM3 Monocytes # (Auto) 0.7 TH/MM3 Eosinophils # (Auto) 0.2 TH/MM3 Basophils # (Auto) 0.1 TH/MM3 CBC Comment DIFF FINAL Differential Comment Blood Urea Nitrogen 9 MG/DL Creatinine 1.24 MG/DL Random Glucose 74 MG/DL Calcium Level 9.2 MG/DL Sodium Level 141 MEQ/L Potassium Level 4.0 MEQ/L Chloride Level 105 MEQ/L Carbon Dioxide Level 23.2 MEQ/L Anion Gap 13 MEQ/L Estimat Glomerular Filtration Rate 79 ML/MIN Salicylates Level 2.5 MG/DL Acetaminophen Level LESS THAN 2.0 MCG/ML Ethyl Alcohol Level LESS THAN 3 MG/DL [facility] Medical Record Reviewed: Yes Supervised Visit with JEAN: Yes Interpretation(s) Laboratory Tests Test 02/18/17 22:15 White Blood Count 8.3 TH/MM3 Red Blood Count 4.62 MIL/MM3 Hemoglobin 13.5 GM/DL Hematocrit 42.3 % Mean Corpuscular Volume 91.6 FL Mean Corpuscular Hemoglobin 29.3 PG Mean Corpuscular Hemoglobin Concent 32.0 % Red Cell Distribution Width 15.0 % Platelet Count 260 TH/MM3 Mean Platelet Volume 9.6 FL Neutrophils (%) (Auto) 43.5 % Lymphocytes (%) (Auto) 44.1 % Monocytes (%) (Auto) 8.4 % Eosinophils (%) (Auto) 2.9 % Basophils (%) (Auto) 1.1 % Neutrophils # (Auto) 3.6 TH/MM3 Lymphocytes # (Auto) 3.7 TH/MM3 Monocytes # (Auto) 0.7 TH/MM3 Eosinophils # (Auto) 0.2 TH/MM3 Basophils # (Auto) 0.1 TH/MM3 CBC Comment DIFF FINAL Differential Comment Blood Urea Nitrogen 9 MG/DL Creatinine 1.24 MG/DL Random Glucose 74 MG/DL Calcium Level 9.2 MG/DL Sodium Level 141 MEQ/L Potassium Level 4.0 MEQ/L Chloride Level 105 MEQ/L Carbon Dioxide Level 23.2 MEQ/L Anion Gap 13 MEQ/L Estimat Glomerular Filtration Rate 79 ML/MIN Salicylates Level 2.5 MG/DL Acetaminophen Level LESS THAN 2.0 MCG/ML Ethyl Alcohol Level LESS THAN 3 MG/DL Differential Diagnosis MDM: High Differential diagnoses: Schizophrenia, schizoaffective disorder, bipolar, anxiety, depression, adjustment reaction, mood disorder NOS, ODD, depressive disorder NOS, dementia, dementia with agitation, psychosis NOS, substance induced mood disorder, DMDD, Asperger syndrome, infection,electrolyte abnormality, malingering. Narrative Course The patient has now become calm and cooperative. I suspect the patient was under the influence of substances at the time of his presentation. The patient has declined to give a urine specimen today. The patient denies any suicidal or homicidal ideation now. He verbally contracts for safety. I believe the patient is safe to go home. I discussed the case with Dr. Bee the attending physician who has agreed to lift his Brandt act. This is a patient both Dr. Bee and myself at taking care of in the past. Patient is medically stable for discharge. This is substance induced mood disorder Diagnosis Primary Impression: Substance induced mood disorder Patient Instructions: General Instructions Additional Instruction: Rest. Increase fluids. Avoid alcohol. Avoid illegal substances. Follow-up with [facility] for detox. Do not operate a car or any heavy machinery under the influence of alcohol or drugs. Follow-up with a medical doctor this week. Return to the ER for emergencies Med/Other Pt SpecificInfo: No Meds Exist/No RX given Scripts Unable to Obtain Active Prescriptions or Reported Meds Disposition: 01 DISCHARGE HOME Condition: Stable Mal Bailey Feb 19, 2017 03:41
== END 2017-02-19 04:16 | disposition home or self-care (01) ==
LOC: NEPD 21:58
DX: F19.94 Other psychoactive substance use, unspecified with psychoactive substance-induced mood disorder (principal)
CPT/HCPCS: 80048; 80307; 85025; 96372; 99285; J1630; J2250

== ENCOUNTER 2017-02-21 06:01 | Emergency (ER) | payer OTHER ==
[~2017-02-21] VITALS: Ht 182.9 cm; Wt 78.0 kg
[2017-02-21 06:21] VITALS: BP 133/74; PULSE 93; RESP 14; TEMP 98.6; O2SAT 100
[2017-02-21] MEDS ORDERED: SODIUM CHLOR 0.9% 1000 ML INJ 1,000 ML IV ONE (06:30)
[2017-02-21] MEDS ORDERED: LORazepam 2 MG/ML VIAL IV PUSH ONE (06:30)
--- NOTE | 2017-02-21 06:42 | PD ---
HPI Chief Complaint: Psychiatric Symptoms Time Seen by Provider: 06:18 Travel History International Travel<30 days: No Contact w/Intl Traveler<30days: No Traveled to known affect area: No History of Present Illness HPI This is a 36-year-old male who has a history of substance abuse who presents to the emergency department agitated having been combative with police telling them to shoot him. Here in the emergency department he was yelling at staff telling us to put him in restraints. He denies any substance use but he is not a good historian. [facility] Past Medical History Arthritis: No Asthma: No Autoimmune Disease: No Blood Disorders: No Anxiety: No Depression: Yes Heart Rhythm Problems: Yes Cancer: No Cardiovascular Problems: Yes High Cholesterol: No Chest Pain: No Congestive Heart Failure: No COPD: No Cerebrovascular Accident: No Diabetes: No Diminished Hearing: No Endocrine: No Gastrointestinal Disorders: No GERD: No Glaucoma: No Genitourinary: No Headaches: No Hepatitis: No Hiatal Hernia: No Hypertension: No Immune Disorder: No Implanted Vascular Access Dvce: Yes Musculoskeletal: No Neurologic: No Psychiatric: Yes (Schizophrenia) Reproductive: No Respiratory: No Immunizations Current: No Migraines: No Myocardial Infarction: No Schizophrenia: Yes Seizures: No Sleep Apnea: No Ulcer: No Past Surgical History Abdominal Surgery: No AICD: No Appendectomy: No Body Medical Devices: Facial plate Cardiac Surgery: No Cholecystectomy: No Ear Surgery: Yes Endocrine Surgery: No Eye Surgery: Yes (FX ORBIT REPAIR) Genitourinary Surgery: No Gynecologic Surgery: No Neurologic Surgery: No Oral Surgery: Yes ( Facial plate) Pacemaker: No Thoracic Surgery: No Other Surgery: Yes (plate in face) Social History Alcohol Use: Yes (occasionally) Tobacco Use: Yes Substance Use: Yes (marijuana, cocaine) Allergies-Medications (Allergen,Severity, Reaction): Coded Allergies: shellfish derived (Verified Allergy, Severe, EDEMA, HIVES, 02/14/17) Reported Meds & Prescriptions Reported Meds & Active Scripts Active Active Prescriptions or Reported Medications Unobtainable Review of Systems Except as stated in HPI: all other systems reviewed are Neg Physical Exam Narrative GENERAL:Well appearing, no acute distress SKIN: Focused skin assessment warm and dry. HEAD: Atraumatic. Normocephalic. EYES: Pupils equal and round. No injection or drainage. ENT: Moist mucous membranes NECK: Trachea midline. CARDIOVASCULAR: Regular rate and rhythm. No murmur appreciated. RESPIRATORY: Clear to auscultation. Breath sounds equal bilaterally. GASTROINTESTINAL: Abdomen soft, non-tender, nondistended. MUSCULOSKELETAL: No obvious deformities. NEUROLOGICAL: Awake and alert. No obvious cranial nerve deficits. Moving all extremities. PSYCHIATRIC: Psychotic, inappropriate answers to questions, intermittently yelling Data Data Last Documented VS Vital Signs Date Time Temp Pulse Resp B/P (MAP) Pulse Ox O2 Delivery O2 Flow Rate FiO2 02/21/17 06:21 98.6 93 14 133/74 (93) 100 Orders Orders Complete Blood Count With Diff (02/21/17 06:19) Comprehensive Metabolic Panel (02/21/17 06:19) ^ Insert Iv (02/21/17 06:19) Drug Screen, Random Urine (02/21/17 06:19) Alcohol (Ethanol) (02/21/17 06:19) Sodium Chlor 0.9% 1000 Ml Inj (Ns 1000 M (02/21/17 06:30) Lorazepam Inj (Ativan Inj) (02/21/17 06:30) MDM Medical Decision Making Medical Screen Exam Complete: Yes Emergency Medical Condition: Yes Medical Record Reviewed: Yes (patient has been seen in our emergency department in the past and has tested positive multiple times for cocaine and cannabinoid) Differential Diagnosis Substance intoxication, adjustment reaction, schizophrenia, bipolar disorder Narrative Course This is a 36-year-old male who presents to the emergency department under a Brandt act by police. On arrival he was combative and agitated. He was placed in restraints and given chemical sedation. Patient's been here multiple times in the past and setting of substance induced psychosis. Labs will be obtained and patient will be observed. His Brandt act and likely be lifted once he appears clinically sober. Scripts Unable to Obtain Active Prescriptions or Reported Meds Asmita Herrera MD Feb 21, 2017 06:42
--- NOTE | 2017-02-21 07:00 | PD ---
Physical Exam Date Seen by Provider: Feb 21, 2017 Time Seen by Provider: 06:58 Narrative The patient is a 36-year-old male was initially evaluated by the previous physician, Dr. Herrera. Please refer to the initial history, physical, diagnostic evaluation, treatment modality plan. The patient was signed out at 7 AM a laboratory evaluation and psychiatric evaluation pending. Data Data Last Documented VS Vital Signs Date Time Temp Pulse Resp B/P (MAP) Pulse Ox O2 Delivery O2 Flow Rate FiO2 02/21/17 06:21 98.6 93 14 133/74 (93) 100 Orders Orders Complete Blood Count With Diff (02/21/17 06:19) Comprehensive Metabolic Panel (02/21/17 06:19) ^ Insert Iv (02/21/17 06:19) Drug Screen, Random Urine (02/21/17 06:19) Alcohol (Ethanol) (02/21/17 06:19) Sodium Chlor 0.9% 1000 Ml Inj (Ns 1000 M (02/21/17 06:30) Lorazepam Inj (Ativan Inj) (02/21/17 06:30) Psych Screen (02/21/17 06:42) Restraints Violent (02/21/17 07:07) Labs Laboratory Tests Test 02/21/17 06:38 White Blood Count 5.8 TH/MM3 Red Blood Count 4.14 MIL/MM3 Hemoglobin 12.1 GM/DL Hematocrit 37.1 % Mean Corpuscular Volume 89.8 FL Mean Corpuscular Hemoglobin 29.2 PG Mean Corpuscular Hemoglobin Concent 32.5 % Red Cell Distribution Width 14.9 % Platelet Count 227 TH/MM3 Mean Platelet Volume 9.8 FL Neutrophils (%) (Auto) 65.1 % Lymphocytes (%) (Auto) 27.2 % Monocytes (%) (Auto) 5.8 % Eosinophils (%) (Auto) 1.2 % Basophils (%) (Auto) 0.7 % Neutrophils # (Auto) 3.8 TH/MM3 Lymphocytes # (Auto) 1.6 TH/MM3 Monocytes # (Auto) 0.3 TH/MM3 Eosinophils # (Auto) 0.1 TH/MM3 Basophils # (Auto) 0.0 TH/MM3 CBC Comment DIFF FINAL Differential Comment Blood Urea Nitrogen 9 MG/DL Creatinine 1.04 MG/DL Random Glucose 89 MG/DL Total Protein 7.0 GM/DL Albumin 3.8 GM/DL Calcium Level 8.9 MG/DL Alkaline Phosphatase 74 U/L Aspartate Amino Transf (AST/SGOT) 76 U/L Alanine Aminotransferase (ALT/SGPT) 50 U/L Total Bilirubin 0.4 MG/DL Sodium Level 142 MEQ/L Potassium Level 3.5 MEQ/L Chloride Level 110 MEQ/L Carbon Dioxide Level 23.6 MEQ/L Anion Gap 8 MEQ/L Estimat Glomerular Filtration Rate 97 ML/MIN Ethyl Alcohol Level LESS THAN 3 MG/DL [facility] Medical Record Reviewed: Yes Supervised Visit with JEAN: No Interpretation(s) Laboratory Tests Test 02/21/17 06:38 White Blood Count 5.8 TH/MM3 Red Blood Count 4.14 MIL/MM3 Hemoglobin 12.1 GM/DL Hematocrit 37.1 % Mean Corpuscular Volume 89.8 FL Mean Corpuscular Hemoglobin 29.2 PG Mean Corpuscular Hemoglobin Concent 32.5 % Red Cell Distribution Width 14.9 % Platelet Count 227 TH/MM3 Mean Platelet Volume 9.8 FL Neutrophils (%) (Auto) 65.1 % Lymphocytes (%) (Auto) 27.2 % Monocytes (%) (Auto) 5.8 % Eosinophils (%) (Auto) 1.2 % Basophils (%) (Auto) 0.7 % Neutrophils # (Auto) 3.8 TH/MM3 Lymphocytes # (Auto) 1.6 TH/MM3 Monocytes # (Auto) 0.3 TH/MM3 Eosinophils # (Auto) 0.1 TH/MM3 Basophils # (Auto) 0.0 TH/MM3 CBC Comment DIFF FINAL Differential Comment Blood Urea Nitrogen 9 MG/DL Creatinine 1.04 MG/DL Random Glucose 89 MG/DL Total Protein 7.0 GM/DL Albumin 3.8 GM/DL Calcium Level 8.9 MG/DL Alkaline Phosphatase 74 U/L Aspartate Amino Transf (AST/SGOT) 76 U/L Alanine Aminotransferase (ALT/SGPT) 50 U/L Total Bilirubin 0.4 MG/DL Sodium Level 142 MEQ/L Potassium Level 3.5 MEQ/L Chloride Level 110 MEQ/L Carbon Dioxide Level 23.6 MEQ/L Anion Gap 8 MEQ/L Estimat Glomerular Filtration Rate 97 ML/MIN Ethyl Alcohol Level LESS THAN 3 MG/DL Differential Diagnosis Differential diagnosis includes substance induced mood disorder, polysubstance abuse, psychosis, rhabdomyolysis, bipolar affective disorder, depressive disorder NOS. Narrative Course The patient is a 36-year-old male was initially evaluated by the previous physician. Please refer to the initial history, physical, diagnostic evaluation , treatment modality plan. The patient was signed out at 7 AM with laboratory evaluation and psychiatric evaluation pending. I reviewed the patient's EMR, has multiple tox screens positive for cocaine and cannabinoids. He has been previously admitted for his psychosis in January 2017. Her labs are unremarkable. The patient is medically cleared to be evaluated by psychiatry. Disposition as per psych. Diagnosis Primary Impression: Substance induced mood disorder Scripts Unable to Obtain Active Prescriptions or Reported Meds Edvin Blackwell MD Feb 21, 2017 07:00
[2017-02-21 07:04] LABS: AUTOMATED NEUTROPHIL # 3.8 TH/MM3 (1.8-7.7); BASOPHIL % 0.7 % (0.0-2.0); EOSINOPHIL # 0.1 TH/MM3 (0-0.4); EOSINOPHIL % 1.2 % (0.0-4.0); HEMATOCRIT 37.1 % (39.0-51.0); HEMO FLAGS DIFF FINAL; LYMPH % 27.2 % (9.0-44.0); LYMPHOCYTE # 1.6 TH/MM3 (1.0-4.8); MEAN CELL VOLUME 89.8 FL (80.0-100.0); MEAN CORPUSCULAR HEMOGLOBIN 29.2 PG (27.0-34.0); MEAN CORPUSCULAR HGB CONC 32.5 % (32.0-36.0); MONO % 5.8 % (0.0-8.0); NEUT % 65.1 % (16.0-70.0); PLATELET COUNT 227 TH/MM3 (150-450); RED BLOOD COUNT 4.14 MIL/MM3 (4.50-5.90); RED CELL DISTRIBUTION WIDTH 14.9 % (11.6-17.2); WHITE BLOOD COUNT 5.8 TH/MM3 (4.0-11.0)
[2017-02-21 07:20] LABS: ALT (GPT) 50 U/L (12-78); ANION GAP 8 MEQ/L (5-15); AST (GOT) 76 U/L (15-37); BICARBONATE 23.6 MEQ/L (21.0-32.0); BLOOD UREA NITROGEN 9 MG/DL (7-18); CHLORIDE 110 MEQ/L (98-107); GLOMERULAR FILTRATION RATE 97 ML/MIN (>89); POTASSIUM 3.5 MEQ/L (3.5-5.1); SODIUM (NA) 142 MEQ/L (136-145)
[2017-02-21 07:23] LABS: ALCOHOL LESS THAN 3 MG/DL (0-5); ALKALINE PHOSPHATASE 74 U/L (45-117); TOTAL BILIRUBIN ADULT 0.4 MG/DL (0.2-1.0)
--- NOTE | 2017-02-22 09:04 | PD.PSY.CON ---
Provisional Diagnosis Admission Date [place]. Substance induced psychotic disorder, cannabis and cocaine use disorder [place]. Antisocial personality disorder History of Present Illness Service Psychiatry Consult Requested By ER team Reason for Consult Brandt act Primary Care Physician Unknown HPI This is a 36-year-old man, homeless, unemployed, single, well known by this service, to [place] ER visits due to substance related problems, he has history of cocaine, cannabis and amphetamines use disorder, who who presents to the emergency department agitated having been combative with police telling them to shoot him. Here in the emergency department he was yelling at staff telling us to put him in restraints. He denies any substance use but he is not a good historian. She was medicated with Haldol and Ativan IM. But in psychiatric evaluation today he is clinically sober, requesting to be discharged , he denies depressive symptoms, denies anxiety, denies psychosis, he denies suicidal and homicidal ideation, he denies visual and auditory hallucinations. Patient is irritable and verbally abusive which is part of his baseline. Review of Systems Constitutional: DENIES: Diaphoretic episodes, Fatigue, Fever, Weight gain, Weight loss, Chills, Dizziness, Change in appetite, Night Sweats Endocrine: DENIES: Heat/cold intolerance, Polydipsia, Polyuria, Polyphagia Eyes: DENIES: Blurred vision, Diplopia, Eye inflammation, Eye pain, Vision loss , Photosensitivity, Double Vision Ears, nose, mouth, throat: DENIES: Tinnitus, Hearing loss, Vertigo, Nasal discharge, Oral lesions, Throat pain, Hoarseness, Ear Pain, Running Nose, Epistaxis, Sinus Pain, Toothache, Odynophagia Respiratory: DENIES: Apneas, Cough, Snoring, Wheezing, Hemoptysis, Sputum production, Shortness of breath Cardiovascular: DENIES: Chest pain, Palpitations, Syncope, Dyspnea on Exertion , PND, Lower Extremity Edema, Orthopnea, Claudication Gastrointestinal: DENIES: Abdominal pain, Black stools, Bloody stools, Constipation, Diarrhea, Nausea, Vomiting, Difficulty Swallowing, Anorexia Genitourinary: DENIES: Sexual dysfunction, Urinary frequency, Urinary incontinence, Urgency, Hematuria, Dysuria, Nocturia, Penile Discharge, Testicular Pain, Testicular Swelling Musculoskeletal: DENIES: Joint pain, Muscle aches, Stiffness, Joint Swelling, Back pain, Neck pain Integumentary: DENIES: Abnormal pigmentation, Nail changes, Pruritus, Rash Hematologic/lymphatic: DENIES: Bruising, Lymphadenopathy Immunologic/allergic: DENIES: Eczema, Urticaria Neurologic: DENIES: Abnormal gait, Headache, Localized weakness, Paresthesias, Seizures, Speech Problems, Tremor, Poor Balance Psychiatric: DENIES: Anxiety, Confusion, Mood changes, Depression, Hallucinations, Agitation, Suicidal Ideation, Homicidal Ideation, Delusions Past Family Social History Coded Allergies: shellfish derived (Verified Allergy, Severe, EDEMA, HIVES, 02/14/17) Unable to Obtain Active Prescriptions or Reported Meds No medications Family Psych History He denies family history Social History Homeless, unemployed, single Physical Exam Vital Signs Vital Signs Date Time Temp Pulse Resp B/P (MAP) Pulse Ox O2 Delivery O2 Flow Rate FiO2 02/21/17 06:21 98.6 93 14 133/74 (93) 100 Lab Results Test 02/21/17 10:00 Urine Opiates Screen NEG Urine Barbiturates Screen NEG Urine Amphetamines Screen NEG Urine Benzodiazepines Screen NEG Urine Cocaine Screen POS Urine Cannabinoids Screen POS Mental Status Examination Appearance: Appropriate Consciousness: Alert Orientation: x4 Motor Activity: Normal gait Speech: Unremarkable Language: Adequate Fund of Knowledge: Adequate Attention and Concentration: Adequate Memory: Unremarkable Mood: Appropriate Affect: Appropriate Thought Process & Associations: Intact Thought Content: Appropriate Hallucination Type: None Delusion Type: None Suicidal Ideation: No Suicidal Plan: No Suicidal Intention: No Homicidal Ideation: No Homicidal Plan: No Homicidal Intention: No Insight: Adequate Judgment: Adequate Assessment & Plan Problem List: (1) Substance induced mood disorder ICD Codes: F19.94 - Other psychoactive substance use, unspecified with psychoactive substance-induced mood disorder Status: Acute Assessment & Plan: Patient does not meet criteria for psychiatric admission at this moment. He is at baseline, clinically sober, Brandt act will be lifted. Assessment & Plan Estimated LOS: Thomas Grigsby MD Feb 22, 2017 09:04
== END 2017-02-21 13:59 | disposition home or self-care (01) ==
LOC: NEPC 06:01
DX: F19.94 Other psychoactive substance use, unspecified with psychoactive substance-induced mood disorder (principal); Z72.0 Tobacco use
CPT/HCPCS: 80053; 80307; 85025; 96374; 99284; J2060; J7030

== ENCOUNTER 2017-03-07 07:01 | Emergency (ER) | payer SELFPAY ==
[~2017-03-07] VITALS: Ht 180.3 cm; Wt 77.0 kg
[2017-03-07 07:10] VITALS: BP 133/87; PULSE 83; RESP 18; TEMP 98.4; O2SAT 100
[2017-03-07 07:18] VITALS: BP 133/87; PULSE 83; RESP 18; TEMP 98.4; O2SAT 100
--- NOTE | 2017-03-07 07:48 | PD ---
HPI . Brandt Act Chief Complaint: Psychiatric Symptoms Time Seen by Provider: 07:19 Travel History International Travel<30 days: No Contact w/Intl Traveler<30days: No Traveled to known affect area: No History of Present Illness HPI This patient was brought in by the police as a Brandt Act. He reportedly stepped in front of an officer's vehicle in an attempt to hurt himself. No further history is available from the patient. PFSH Past Medical History Arthritis: No Asthma: No Autoimmune Disease: No Blood Disorders: No Anxiety: No Depression: Yes Heart Rhythm Problems: Yes Cancer: No Cardiovascular Problems: Yes High Cholesterol: No Chest Pain: No Congestive Heart Failure: No COPD: No Cerebrovascular Accident: No Diabetes: No Diminished Hearing: No Endocrine: No Gastrointestinal Disorders: No GERD: No Glaucoma: No Genitourinary: No Headaches: No Hepatitis: No Hiatal Hernia: No Hypertension: No Immune Disorder: No Implanted Vascular Access Dvce: Yes Musculoskeletal: No Neurologic: No Psychiatric: Yes (Schizophrenia) Reproductive: No Respiratory: No Immunizations Current: No Migraines: No Myocardial Infarction: No Schizophrenia: Yes Seizures: No Sleep Apnea: No Ulcer: No Tetanus Vaccination: Unknown Past Surgical History Abdominal Surgery: No AICD: No Appendectomy: No Body Medical Devices: Facial plate Cardiac Surgery: No Cholecystectomy: No Ear Surgery: Yes Endocrine Surgery: No Eye Surgery: Yes (FX ORBIT REPAIR) Genitourinary Surgery: No Gynecologic Surgery: No Neurologic Surgery: No Oral Surgery: Yes ( Facial plate) Pacemaker: No Thoracic Surgery: No Other Surgery: Yes (plate in face) Social History Alcohol Use: Yes (occasionally) Tobacco Use: Yes Substance Use: Yes (marijuana, cocaine) Allergies-Medications (Allergen,Severity, Reaction): Coded Allergies: shellfish derived (Verified Allergy, Severe, EDEMA, HIVES, 03/07/17) Reported Meds & Prescriptions Reported Meds & Active Scripts Active No Active Prescriptions or Reported Medications Review of Systems ROS Limitations: Uncooperative Physical Exam Narrative GENERAL: Awake and alert and in no acute distress. He is currently restrained. SKIN: Warm and dry. HEAD: Normocephalic/atraumatic. EYES: Pupils are equal. Extraocular movements are intact. NECK: Normal range of motion. CARDIOVASCULAR: Regular rate and rhythm. RESPIRATORY: Nonlabored respirations. MUSCULOSKELETAL: Atraumatic. NEUROLOGICAL: Nonfocal. PSYCHIATRIC: Unable to assess. The patient is not talking to me. However, police report that he stepped out into traffic. Data Data Last Documented VS Vital Signs Date Time Temp Pulse Resp B/P (MAP) Pulse Ox O2 Delivery O2 Flow Rate FiO2 03/07/17 07:18 98.4 83 18 133/87 (102) 100 Room Air Orders Orders Psych Screen (03/07/17 07:22) Drug Screen, Random Urine (03/07/17 07:22) Alcohol (Ethanol) (03/07/17 07:22) Restraints Violent (03/07/17 07:22) Cath For Specimen (03/07/17 07:45) Labs Laboratory Tests Test 03/07/17 07:28 03/07/17 07:53 Ethyl Alcohol Level LESS THAN 3 MG/DL Urine Opiates Screen NEG Urine Barbiturates Screen NEG Urine Amphetamines Screen NEG Urine Benzodiazepines Screen NEG Urine Cocaine Screen POS Urine Cannabinoids Screen POS MDM Medical Decision Making Medical Screen Exam Complete: Yes Emergency Medical Condition: Yes Medical Record Reviewed: Yes (his psychiatric diagnoses have been schizoaffective disorder, schizophrenia, substance abuse, substance abuse induced mood disorder. He has been in this hospital on a very regular basis under similar circumstances.) Differential Diagnosis Differential diagnosis includes but is not limited to depression with suicidal gesture, suicide attempt, suicidal ideation, attention seeking behavior. Narrative Course This patient presents as a Brandt Act. He was most recently seen here on . He had relatively normal labs. He does not have any underlying chronic medical problems. Therefore, routine labs have not been ordered. I have ordered a drug screen and alcohol level. EtOH neg. Drug screen + for cocaine and THC This patient is now medically clear for psychiatric evaluation. Diagnosis Primary Impression: Medical clearance for psychiatric admission Scripts No Active Prescriptions or Reported Meds Disposition: DISCHARGE HOME Condition: Stable Mariely Pérez MD Mar 07, 2017 07:48
--- NOTE | 2017-03-07 11:41 | PD.PSY.CON ---
Provisional Diagnosis Admission Date Date of consultation: 03/07/17 [place] I. 1. Polysubstance Dependence [place] II. 1. Antisocial personality traits History of Present Illness Service Psychiatry Consult Requested By ED Reason for Consult Brandt Act Primary Care Physician No Primary Care Physician HPI Mr. Robles is a 36-year-old male with a history of polysubstance use issues well known to the psychiatric service here from multiple previous ED visits for the sequelae of his substance use. He presents under a Brandt act by [place] [employer] alleging that the patient walked out into traffic. Urine toxicology is positive for cocaine and cannabinoids. As not infrequently happens when he presents in an intoxicated state, the patient required restraints earlier in the ED visit but has since calmed and has been released from restraints. Reviewing the electronic medical record, I note that the patient was seen most recently in consultation by Dr. Garcia on 02/22/17. Patient seen and examined. Chart reviewed. Case discussed with nurse in the J- pod and in the main ED. On my examination today, patient is oppositional and fairly uncooperative with exam. He is clinically sober. Antisocial personality traits are noted on exam. When I ask about the allegations in the Brandt Act, the patient petulantly responds, "I don't know, ask the officers." He does not verbalize any suicidal or homicidal ideation, intent or plan at this time. There is no evidence of psychosis or rational thinking loss on exam. His affect is dysphoric, and he does have a history of mood disorder related to his substance use, but he does not describe any symptoms of severely decompensated mood illness at this time. The remainder of the psychiatric ROS is negative. I endeavor to obtain PPH, FH, chem dep history, and SH, but the patient is uncooperative with my attempts to obtain these historical details. Review of Systems ROS Limitations: Uncooperative, Poor Historian Except as stated in HPI: all other systems reviewed are Neg Past Family Social History Coded Allergies: shellfish derived (Verified Allergy, Severe, EDEMA, HIVES, 03/07/17) Past Medical History See EMR No Active Prescriptions or Reported Meds Family Psych History See above Social History See above Patient's Strengths (min. 2) Able to access clinical care. Verbally fluent. Physical Exam Physical exam completed by ED provider. On my exam the patient appears to be in no acute physical distress nor can I appreciate any abnormal motor movements. Labs and vitals reviewed: Vital Signs Vital Signs Date Time Temp Pulse Resp B/P (MAP) Pulse Ox O2 Delivery O2 Flow Rate FiO2 03/07/17 07:18 98.4 83 18 133/87 (102) 100 Room Air Lab Results Test 03/07/17 07:28 03/07/17 07:53 Ethyl Alcohol Level LESS THAN 3 MG/DL Urine Opiates Screen NEG Urine Barbiturates Screen NEG Urine Amphetamines Screen NEG Urine Benzodiazepines Screen NEG Urine Cocaine Screen POS Urine Cannabinoids Screen POS Mental Status Examination Appearance: Disheveled (but maintaining basic hygiene) Consciousness: Alert Orientation: Person, Place (at least) Motor Activity: Other (no abnormal motor movements noted) Speech: Unremarkable Language: Adequate Attention and Concentration: Adequate Memory: Unremarkable (limited sample but seems grossly intact on clinical exam) Mood: Other (somewhat dysphoric) Affect: Blunt Thought Process & Associations: Intact Thought Content: Appropriate Hallucination Type: None Delusion Type: None Suicidal Ideation: No Suicidal Plan: No Suicidal Intention: No Homicidal Ideation: No Homicidal Plan: No Homicidal Intention: No Insight: Poor (chronic condition) Judgment: Poor (chronic condition) Assessment & Plan Problem List: (1) Polysubstance dependence ICD Codes: F19.20 - Other psychoactive substance dependence, uncomplicated (2) Antisocial personality traits Assessment & Plan 36-year-old male with psychiatric history as detailed above who presents under a Brandt act. Patient's psychiatric symptoms are related to his substance use issues and consequently are exempted from the Brandt act definition of mental illness. The patient therefore does not meet the Brandt act criteria, and the Brandt act has been lifted. Patient currently has no suicidal or homicidal ideation. His substance use and antisocial personality traits are chronic but not acute or imminent risk factors for harm to self/ others. I have encouraged him to seek chemical dependency evaluation and treatment on an ambulatory basis to ameliorate this risk factor. The patient does not meet criteria for and would not benefit from hospitalization on the general inpatient psychiatric unit at this time. Patient is psychiatrically cleared for discharge from the ED. Thank you for this consultation. Request HC Surrog/Guard Advoc?: No Brett Ramirez MD Mar 07, 2017 11:41
== END 2017-03-07 11:27 | disposition home or self-care (01) ==
LOC: NEPC 07:01
DX: F19.20 Other psychoactive substance dependence, uncomplicated (principal); F20.9 Schizophrenia, unspecified; F14.90 Cocaine use, unspecified, uncomplicated; F12.90 Cannabis use, unspecified, uncomplicated
CPT/HCPCS: 80307; 99285